=== PATIENT | female | born 2000 | race Caucasian/White ===

== ENCOUNTER 2023-03-23 20:56 | Observation (INO) ==
[2023-03-23] MEDS ORDERED: SODIUM CHLORIDE 0.9% 1000ML 1,000 ML IV SCH (21:30)
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
[2023-03-23 22:18] LABS: Albumin Level 2.9 gm/dl (3.4-5.0); BUN Creatinine Ratio 13.4 (10-20); Bilirubin,Total 10.3 mg/dl (0.2-1.0); Calcium 8.1 mg/dl (8.6-10.3); Creatinine Clr Calc Pharmacy 121.8 ml/min; Est GFR (African American) 118.6 ml/min; Est GFR (Non-African American) 102.3 ml/min; Magnesium 1.9 mg/dl (1.7-2.4); Potassium 3.6 mmol/L (3.5-5.1); Total Protein 6.6 gm/dl (6.0-8.3); Troponin I High Sensitivity 19.3 pg/ml (0-14)
[2023-03-23 22:22] LABS: INR 1.3 (0.9-1.1); Partial Thromboplastin Ratio 1.3; Partial Thromboplastin Time 35.3 Seconds (21.0-31.0)
[2023-03-23 22:29] LABS: Acetaminophen < 3 ug/ml (10-30); Salicylate < 3.0 mg/dl (3.0-30)
[2023-03-23] MEDS ORDERED: OPTIRAY 320 100ml IV ONE (22:45)
[2023-03-23 22:47] LABS: Appearance Urine Cloudy (Clear); Bacteria Urine Automated Negative (Negative); Bilirubin Urine 3+ (Negative); Blood Urine Negative (Negative); Color Urine Dark Yellow; Epithelial Cell Urine Auto >30 /lpf (0-5); Glucose Urine UA Negative (Negative); Ketones Urine Trace (Negative); Leukocyte Esterase Urine 1+ (Negative); Nitrite Urine Positive (Negative); Protein Urine 1+ (Negative); Specific Gravity Urine 1.017 (1.000-1.030); Urobilinogen Urine Negative (Negative)
[2023-03-23 22:48] LABS: Influenza A virus by PCR Negative (Neg); Influenza B virus by PCR Negative (Neg); RSV by PCR Negative (Neg); SARS CoV2 RNA(COVID-19) Ceph NEGATIVE (Negative)
[2023-03-23 22:57] LABS: RBC Urine Automated 0-4 /hpf (0-4)
[2023-03-23 22:59] LABS: Hematocrit (blood only) 29.2 % (37.0-47.0); Hemoglobin 10.2 g/dl (12.0-16.0); Mean Corpuscular Hemoglobin 30.2 pg (25.0-34.0); Mean Corpuscular Hgb Conc 34.9 g/dL (32.0-36.0); Mean Corpuscular Volume 86.4 fL (80.0-100.0); Mean Platelet Volume 12.3 fL (9.4-12.4); Platelet Count 82 K/uL (130-400); RDW Coefficient of Variation 14.6 % (11.5-14.5); RDW Standard Deviation 46.5 fL (36.4-46.3); Red Blood Count 3.38 M/uL (4.20-5.40); White Blood Count 4.24 K/ul (4.8-10.8)
[2023-03-23 23:00] LABS: Basophils # (auto) 0.02 K/uL (0-0.2); Basophils % (auto) 0.5 %; Immature Granulocytes # (auto) 0.17 K/uL (0.01-0.20); Lymphocytes # (auto) 2.06 K/uL (1.2-3.4); Lymphocytes % (auto) 48.6 %; Monocytes # (auto) 0.32 K/uL (0.11-0.59); Monocytes % (auto) 7.5 %; Neutrophils # (auto) 1.67 K/uL (1.40-6.50); Neutrophils % (auto) 39.4 %; Platelet Estimate Decreased (Normal)
[2023-03-23 23:07] LABS: Amphetamines+Metham, Urine Neg (Neg); Barbiturates, Urine Neg (Neg); Benzodiazepine, Urine Neg (Neg); Cocaine, Urine Neg (Neg); MDMA (Ecstacy), Urine Neg (Neg); Methadone, Urine Neg (Neg); Opiate, Urine Neg (Neg); Phencyclidine, Urine Neg (Neg)
--- NOTE | 2023-03-23 23:09 | CT Scan Report ---
Exam(s): CT ABDOMEN + PELVIS With Contrast IV Amt: 92ml EXAM: CT Abdomen and Pelvis With Intravenous Contrast CLINICAL HISTORY: Reason for exam: pain, jaundice. TECHNIQUE: Axial computed tomography images of the abdomen and pelvis with intravenous contrast. CTDI is 26.49 mGy and DLP is 1432.58 mGy-cm. Automated exposure control was utilized for the study. A dose lowering technique was utilized adhering to the principles of ALARA. CONTRAST: Patient received 92ml of IV contrast COMPARISON: No relevant prior studies available. FINDINGS: Lung bases: Unremarkable. No mass. No consolidation. ABDOMEN: Liver: Unremarkable. No CT evidence of hepatic cirrhosis. Gallbladder and bile ducts: Contracted gallbladder. No calcified stones. No ductal dilation. Pancreas: Unremarkable. No mass. No ductal dilation. Spleen: Splenomegaly measuring up to 16.5 cm. Adrenals: Unremarkable. No mass. Kidneys and ureters: Unremarkable. No solid mass. No hydronephrosis. Stomach and bowel: Unremarkable. No acute diverticulitis. No small bowel obstruction. No free air. PELVIS: Appendix: No findings to suggest acute appendicitis. Bladder: Unremarkable. No mass. Reproductive: Unremarkable as visualized. ABDOMEN and PELVIS: Intraperitoneal space: See above. Bones/joints: No acute fracture. No dislocation. Soft tissues: Unremarkable. Vasculature: Unremarkable. No abdominal aortic aneurysm. Lymph nodes: Unremarkable. No enlarged lymph nodes. IMPRESSION: 1. No acute diverticulitis. No small bowel obstruction. No free air. 2. No CT evidence of hepatic cirrhosis. 3. Splenomegaly measuring up to 16.5 cm. Electronically signed by: Austin Jenkins MD 03/23/23 23:08 PM
[2023-03-23] MEDS ORDERED: PIPERACILLIN/TAZOBACTAM 4.5 GM/120 ML BAG IV ONE (23:16)
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
[2023-03-24] MEDS ORDERED: DOXYCYCLINE HYCLATE 100 MG in DEXTROSE 5% 100 ML IV STA (00:55)
[2023-03-24 01:10] LABS: Monotest Positive (Negative); Pregnancy Test, Serum Negative (Negative)
[2023-03-24] MEDS ORDERED: ONDANSETRON 4 MG OD TAB PO PRN (01:39)
[2023-03-24] MEDS ORDERED: IBUPROFEN 600 MG TAB PO PRN (01:39)
[2023-03-24 01:45] LABS: Sodium 123 mmol/L (136-145)
[2023-03-24 01:54] LABS: Lyme Ab IgG w/WB Rflx Negative (Negative)
[2023-03-24 01:55] LABS: Lyme Ab IgM w/WB Rflx Negative (Negative)
[2023-03-24] MEDS: ACETAMINOPHEN 325 MG TAB PO PRN ×3 (01:55→16:20)
[2023-03-24 01:57] LABS: C Reactive Protein 5.99 mg/dl (0-0.5); Creatine Kinase 121 U/L (26-192); Iron 78 mcg/dl (35-150); Troponin I High Sensitivity 20.4 pg/ml (0-14); Unsaturated Iron Binding Cap 179 mcg/dl (155-355)
[2023-03-24 02:09] LABS: Total Iron Binding Cap Calc 257 mcg/dl (250-450)
[2023-03-24 02:10] LABS: Transferrin (FE) Percent Satur 30 % (15-50)
[2023-03-24 02:29] LABS: Ferritin > 7500.0 ng/ml (8-388)
[2023-03-24 02:59] LABS: HDL Cholesterol < 3 mg/dl; Triglycerides 471 mg/dl (0-150)
[2023-03-24] MEDS: SODIUM CHLORIDE 0.9% 1000ML 1,000 ML IV SCH ×2 (03:09→10:39)
[2023-03-24] MEDS: PIPERACILLIN/TAZOBACTAM 4.5 GM in DEXTROSE 5% 100 ML IV SCH ×2 (05:17→13:43)
--- NOTE | 2023-03-24 05:21 | Billing Data ---
Date of Service March 24, 2023 Coding Level of Care Code 33499 INT INP/OBS CARE
--- NOTE | 2023-03-24 05:57 | Consultation ---
Date of Consultation March 24, 2023 Assessment & Plan (1) Mononucleosis: Patient does have a Monospot that is positive but gives a somewhat atypical history of this being her third episode of mononucleosis. She does not have a tender cervical adenopathy nor at least by machine differential lymphocytosis/monocytosis that I would expect with that diagnosis. Certainly have to be concerned about HLH given the constellation of acute liver enzyme changes, pancytopenia, elevated ferritin. Would be concerned that we also need to consider a spectrum of hematologic conditions that are frankly beyond my specific expertise including unusual lymphoproliferative disorders or immune dysfunction disorders. Concern is that both diagnostically and therapeutically our local capabilities may not be best suited to her optimal evaluation and treatment. Her body habitus would make image guided bone marrow aspiration biopsy a preferable approach and unfortunately our IR provider is not available this week. We do have fantastic pathology resources here but specifically processing and evaluating for some of the unusual spectrum disorders this might represent would probably have to be submitted to a reference lab with some delay in turnaround especially given the timing on the cusp of the weekend. I would be particularly concerned that if this is an evolving HLH we may not have the physician expertise to best manage the prescription of etoposide which is a critical component of HLH treatment and yet can be challenging to administer in the face of hepatic dysfunction. I think she will be far better served to seek transfer to a quaternary institution that has the experience and capabilities specifically at the interventional radiology, hematology/oncology, hepatology, infectious disease, and sophisticated pathology processing levels that would assure thorough and expeditious diagnosis and experienced management of indicated treatment. Timing could be critical. Hopefully would be able to transfer sometime within the next hours and with that hopefully it might be prudent to simply continue with supportive management for now. If it looks like there is going to be a delay of more than 4-8 hours, however, we may need to discuss whether the initiation of steroids in the interim would be worthwhile though doing so could compromise the ultimate capability to make a good diagnosis if there is an early response (2) Pancytopenia: Not immediately threatening at the current levels but certainly could become so. Await peripheral smear review to see if there are pathological forms to suggest a lymphoproliferative disorder. As above, diagnostic marrow could be critical but lacking IR capability and given the delays in turnaround that might be imposed by weekend submission and the need to use reference labs are concerning limits to our ability to appropriately make a diagnosis here I will submit B12 and folic acid levels and would suggest that empiric folic acid could be useful what ever her underlying diagnosis Plan As above, she will best be tgreated in a sophisticated quaternary center setting that incorporates focused hematology personnel with more particular experience in the spectrum of diseases in the differential both with regards to diagnosis but also with regards to potential treatment. A focused hepatology team, onsite infectious disease, and onsite capability for maximum bone marrow acquisition and processing will also be pivotal. If there is absolutely no capability for immediate transfer, may need to discuss whether initiation of steroids can modulate her condition while we await that History of Present Illness Reason for Consultation: Febrile illness with cytopenias, elevated liver enzymes and appropriate concern over possible HLH Attending Physician: Radha Koo MD History of Present Illness Please see more complete admission history and physical for details. In general previously healthy 22-year-old female though she states that this is the "third time" that she has had mononucleosis. She does say that ironically she does not feel quite as ill with this episode that she has with previous. She otherwise has no significant personal history of major medical disorder and does not give a description of an unusual pattern of infections. Neither is there an apparent family history of any unusual blood disorders. She has had a low-grade illness for 2 weeks and have been prescribed Bactrim earlier this week for possible UTI. She presents now with more significant fever and prostration and markedly elevated liver enzymes along with anemia and thrombocytopenia. She has just graduated from college with a degree in criminal justice. She gives no history of any unusual exposures other than the Bactrim Allergies Allergy/AdvReac Type Severity Reaction Status Date / Time No Known Allergies Allergy Unverified 03/23/23 21:51 Home Medications Medication Instructions Recorded Confirmed Type etonogestrel 0.12 mg-ethinyl 1 vag ring vaginal UD 11/18/21 03/23/23 History estradiol 0.015 mg/24 hr vaginal ring (Sid) cyclobenzaprine 5 mg tablet 5 mg PO Q8 PRN Muscle Spasm 03/23/23 03/23/23 History Patient History Social History Smoking Status: Never smoker Tobacco Type: E-cigarettes / Vaping Second Hand Exposure: Yes (Parents smoke); Do You Dip or Chew Tobacco: No; Hx Alcohol Use: No Hx Substance Use: No Preferred Language: Canadian Communication Ability: Effective 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 Beliefs That Will Affect Care: None Current Living Situation: Parent Current Living Situation Comment: With parents Other Information That Helps Us Care for You: No Feels Safe at Home: Yes Assistive Devices: None Physical Exam Physical Exam: Patient is alert and appropriate and does not seem to be immediately severely "toxic" Tmax overnight was 39.1, she is saturating well with pulse ox of 94% on room air, mildly tachycardic but with stable blood pressure at this time She does not have dramatic or severely tender cervical adenopathy nor obviously pathologic adenopathy in the superficial or axillary regions Lungs currently seem clear and she is not tachypneic or in respiratory distress Cardiac rhythm is tachycardic but regular and without obvious murmurs or rubs Her abdomen shows tenderness but not acute rigidity or guarding. There is tenderness and fullness left upper quadrant but given the establishment of megaly I did not palpate too deeply. Neurologically she seems completely intact cognitive status without any focal neurological change Results & Data Vital Signs (Past 12 Hours) Vital Signs Temp Pulse Pulse Resp BP BP BP 03/24/23 01:37 112 H 03/24/23 03:13 37.8 C H 03/24/23 01:33 39.1 C H 94 H 20 128/81 03/24/23 01:00 102 H 24 146/81 H 03/24/23 00:30 103 H 25 H 160/92 H 03/24/23 00:04 100 H 25 H 03/24/23 00:04 126/61 03/24/23 00:00 107 H 17 03/23/23 23:52 128/62 03/23/23 23:52 104 H 29 H 03/23/23 23:31 104 H 14 03/23/23 21:24 132/68 03/23/23 23:00 99 H 23 03/23/23 22:52 102 H 17 113/73 03/23/23 22:30 93 H 22 03/23/23 22:20 104 H 25 H 03/23/23 22:00 109 H 15 03/23/23 21:30 106 H 18 03/23/23 21:26 103 H 03/23/23 21:26 104 H 21 03/23/23 21:00 37.4 C 118 H 19 132/78 Pulse Ox O2 Del Method 03/24/23 01:37 03/24/23 03:13 03/24/23 01:33 94 Room Air 03/24/23 01:00 94 03/24/23 00:30 92 03/24/23 00:04 94 03/24/23 00:04 03/24/23 00:00 90 03/23/23 23:52 03/23/23 23:52 90 03/23/23 23:31 03/23/23 21:24 03/23/23 23:00 93 03/23/23 22:52 93 03/23/23 22:30 03/23/23 22:20 97 03/23/23 22:00 97 03/23/23 21:30 94 03/23/23 21:26 03/23/23 21:26 94 03/23/23 21:00 97 Room Air Laboratory Results Laboratory Results - last 24 hr 03/23/23 03/23/23 03/23/23 21:19 21:19 21:19 WBC 4.24 L RBC 3.38 L Hgb 10.2 L Hct 29.2 L MCV 86.4 MCH 30.2 MCHC 34.9 RDW Std Deviation 46.5 H RDW Coeff of Sami 14.6 H Plt Count 82 L MPV 12.3 Immature Gran % (Auto) 4.0 Neut % (Auto) 39.4 Lymph % (Auto) 48.6 Gates % (Auto) 7.5 Eos % (Auto) 0.0 Baso % (Auto) 0.5 Neut # (Auto) 1.67 Lymph # (Auto) 2.06 Gates # (Auto) 0.32 Eos # (Auto) 0.00 Baso # (Auto) 0.02 Immature Gran # (Auto) 0.17 Platelet Estimate Decreased L Peripher Smr Path Cons Cancelled PT 14.0 H INR 1.3 H APTT 35.3 H PTT Ratio 1.3 Fibrinogen Sodium 121 L Potassium 3.6 Chloride 90 L Carbon Dioxide 23 Anion Gap 8 BUN 11 Creatinine 0.82 Est Cr Clr Drug Dosing 121.8 Est GFR ( Amer) 118.6 Est GFR (Non-Af Amer) 102.3 BUN/Creatinine Ratio 13.4 Glucose 85 Osmolality Lactate Calcium 8.1 L Magnesium 1.9 Iron TIBC Unsaturated IBC Transferrin % Sat Ferritin Total Bilirubin 10.3 H Direct Bilirubin 6.0 H AST 525 H ALT 267 H Alkaline Phosphatase 525 H Lactate Dehydrogenase Total Creatine Kinase Troponin I High Sens 19.3 H C-Reactive Protein Total Protein 6.6 Albumin 2.9 L Globulin Albumin/Globulin Ratio Triglycerides Cholesterol LDL Cholesterol, Calc VLDL Cholesterol, Calc HDL Cholesterol Cholesterol/HDL Ratio Lipase 37 Procalcitonin TSH HCG, Qual Urine Color Urine Appearance Urine pH Ur Specific [place] Urine Protein Urine Glucose (UA) Urine Ketones Urine Blood Urine Nitrite Urine Bilirubin Urine Urobilinogen Ur Leukocyte Esterase Urine WBC (Auto) Urine RBC (Auto) U Hyaline Cast (Auto) U Epithel Cells (Auto) Urine Bacteria (Auto) Urine Yeast Urine Osmolality Ur Random Sodium Salicylates Urine Opiates Screen Ur Methadone, Qual Acetaminophen Urine Barbiturates Ur Phencyclidine (PCP) U Amphetamin/Meth Scrn MDMA (Ecstasy) Screen U Benzodiazepines Scrn Ur Cocaine Metabolite U Marijuana (THC) Screen U Marijuana THC Carboxy Drug Screen Comment Ethyl Alcohol mg/dL MIRNA Screen RPR T.pallidum Ab (FTA-ABS) Anaplasma Smear Cancelled Babesia Smear Cancelled Babesia microti DNA PCR Lyme Disease IgG Ab Lyme Disease IgM Ab SARS-CoV-2 (PCR) EBV Capsid Ag IgG Ab EBV Capsid Ag IgM Ab EBV EA Restrict+Diffuse EBV Nuclear Antigen Ab EBV Antibody Interp Hepatitis A IgM Ab Hep Bs Antigen Hep Bs Ag Confirmation Hep B Core IgM Ab Hepatitis C Ab (EIA) Monoscreen Influenza Type A (PCR) Influenza Type B (PCR) RSV (RT-PCR) Blood Type Antibody Screen 03/23/23 03/23/23 03/23/23 21:19 21:19 21:19 WBC RBC Hgb Hct MCV MCH MCHC RDW Std Deviation RDW Coeff of Sami Plt Count MPV Immature Gran % (Auto) Neut % (Auto) Lymph % (Auto) Gates % (Auto) Eos % (Auto) Baso % (Auto) Neut # (Auto) Lymph # (Auto) Gates # (Auto) Eos # (Auto) Baso # (Auto) Immature Gran # (Auto) Platelet Estimate Peripher Smr Path Cons PT INR APTT PTT Ratio Fibrinogen Sodium Potassium Chloride Carbon Dioxide Anion Gap BUN Creatinine Est Cr Clr Drug Dosing Est GFR ( Amer) Est GFR (Non-Af Amer) BUN/Creatinine Ratio Glucose Osmolality Lactate Calcium Magnesium Iron TIBC Unsaturated IBC Transferrin % Sat Ferritin Total Bilirubin Direct Bilirubin AST ALT Alkaline Phosphatase Lactate Dehydrogenase Total Creatine Kinase Troponin I High Sens C-Reactive Protein Total Protein Albumin Globulin Albumin/Globulin Ratio Triglycerides Cholesterol LDL Cholesterol, Calc VLDL Cholesterol, Calc HDL Cholesterol Cholesterol/HDL Ratio Lipase Procalcitonin 1.72 H TSH HCG, Qual Urine Color Urine Appearance Urine pH Ur Specific [place] Urine Protein Urine Glucose (UA) Urine Ketones Urine Blood Urine Nitrite Urine Bilirubin Urine Urobilinogen Ur Leukocyte Esterase Urine WBC (Auto) Urine RBC (Auto) U Hyaline Cast (Auto) U Epithel Cells (Auto) Urine Bacteria (Auto) Urine Yeast Urine Osmolality Ur Random Sodium Salicylates < 3.0 L Urine Opiates Screen Ur Methadone, Qual Acetaminophen < 3 L Urine Barbiturates Ur Phencyclidine (PCP) U Amphetamin/Meth Scrn MDMA (Ecstasy) Screen U Benzodiazepines Scrn Ur Cocaine Metabolite U Marijuana (THC) Screen U Marijuana THC Carboxy Drug Screen Comment Ethyl Alcohol mg/dL MIRNA Screen RPR T.pallidum Ab (FTA-ABS) Anaplasma Smear Babesia Smear Babesia microti DNA PCR Lyme Disease IgG Ab Lyme Disease IgM Ab SARS-CoV-2 (PCR) EBV Capsid Ag IgG Ab EBV Capsid Ag IgM Ab EBV EA Restrict+Diffuse EBV Nuclear Antigen Ab EBV Antibody Interp Hepatitis A IgM Ab Pending Hep Bs Antigen Pending Hep Bs Ag Confirmation Pending Hep B Core IgM Ab Pending Hepatitis C Ab (EIA) Pending Monoscreen Influenza Type A (PCR) Influenza Type B (PCR) RSV (RT-PCR) Blood Type Antibody Screen 03/23/23 03/23/23 03/23/23 21:43 22:22 22:22 WBC RBC Hgb Hct MCV MCH MCHC RDW Std Deviation RDW Coeff of Sami Plt Count MPV Immature Gran % (Auto) Neut % (Auto) Lymph % (Auto) Gates % (Auto) Eos % (Auto) Baso % (Auto) Neut # (Auto) Lymph # (Auto) Gates # (Auto) Eos # (Auto) Baso # (Auto) Immature Gran # (Auto) Platelet Estimate Peripher Smr Path Cons PT INR APTT PTT Ratio Fibrinogen Sodium Potassium Chloride Carbon Dioxide Anion Gap BUN Creatinine Est Cr Clr Drug Dosing Est GFR ( Amer) Est GFR (Non-Af Amer) BUN/Creatinine Ratio Glucose Osmolality Lactate Calcium Magnesium Iron TIBC Unsaturated IBC Transferrin % Sat Ferritin Total Bilirubin Direct Bilirubin AST ALT Alkaline Phosphatase Lactate Dehydrogenase Total Creatine Kinase Troponin I High Sens C-Reactive Protein Total Protein Albumin Globulin Albumin/Globulin Ratio Triglycerides Cholesterol LDL Cholesterol, Calc VLDL Cholesterol, Calc HDL Cholesterol Cholesterol/HDL Ratio Lipase Procalcitonin TSH HCG, Qual Urine Color Dark Yellow Urine Appearance Cloudy A Urine pH 6.0 Ur Specific [place] 1.017 Urine Protein 1+ H Urine Glucose (UA) Negative Urine Ketones Trace H Urine Blood Negative Urine Nitrite Positive A Urine Bilirubin 3+ H Urine Urobilinogen Negative Ur Leukocyte Esterase 1+ H Urine WBC (Auto) 1-5 Urine RBC (Auto) 0-4 U Hyaline Cast (Auto) 1-5 U Epithel Cells (Auto) >30 H Urine Bacteria (Auto) Negative Urine Yeast Not Reportable Urine Osmolality Ur Random Sodium Salicylates Urine Opiates Screen Neg Ur Methadone, Qual Neg Acetaminophen Urine Barbiturates Neg Ur Phencyclidine (PCP) Neg U Amphetamin/Meth Scrn Neg MDMA (Ecstasy) Screen Neg U Benzodiazepines Scrn Neg Ur Cocaine Metabolite Neg U Marijuana (THC) Screen Pos H U Marijuana THC Carboxy Drug Screen Comment Ethyl Alcohol mg/dL MIRNA Screen RPR T.pallidum Ab (FTA-ABS) Anaplasma Smear Babesia Smear Babesia microti DNA PCR Lyme Disease IgG Ab Lyme Disease IgM Ab SARS-CoV-2 (PCR) NEGATIVE EBV Capsid Ag IgG Ab EBV Capsid Ag IgM Ab EBV EA Restrict+Diffuse EBV Nuclear Antigen Ab EBV Antibody Interp Hepatitis A IgM Ab Hep Bs Antigen Hep Bs Ag Confirmation Hep B Core IgM Ab Hepatitis C Ab (EIA) Monoscreen Influenza Type A (PCR) Negative Influenza Type B (PCR) Negative RSV (RT-PCR) Negative Blood Type Antibody Screen 03/23/23 03/23/23 03/23/23 22:22 22:22 22:23 WBC RBC Hgb Hct MCV MCH MCHC RDW Std Deviation RDW Coeff of Sami Plt Count MPV Immature Gran % (Auto) Neut % (Auto) Lymph % (Auto) Gates % (Auto) Eos % (Auto) Baso % (Auto) Neut # (Auto) Lymph # (Auto) Gates # (Auto) Eos # (Auto) Baso # (Auto) Immature Gran # (Auto) Platelet Estimate Peripher Smr Path Cons PT INR APTT PTT Ratio Fibrinogen Sodium Potassium Chloride Carbon Dioxide Anion Gap BUN Creatinine Est Cr Clr Drug Dosing Est GFR ( Amer) Est GFR (Non-Af Amer) BUN/Creatinine Ratio Glucose Osmolality Lactate Calcium Magnesium Iron TIBC Unsaturated IBC Transferrin % Sat Ferritin Total Bilirubin Direct Bilirubin AST ALT Alkaline Phosphatase Lactate Dehydrogenase Total Creatine Kinase Troponin I High Sens C-Reactive Protein Total Protein Albumin Globulin Albumin/Globulin Ratio Triglycerides Cholesterol LDL Cholesterol, Calc VLDL Cholesterol, Calc HDL Cholesterol Cholesterol/HDL Ratio Lipase Procalcitonin TSH HCG, Qual Negative Urine Color Urine Appearance Urine pH Ur Specific [place] Urine Protein Urine Glucose (UA) Urine Ketones Urine Blood Urine Nitrite Urine Bilirubin Urine Urobilinogen Ur Leukocyte Esterase Urine WBC (Auto) Urine RBC (Auto) U Hyaline Cast (Auto) U Epithel Cells (Auto) Urine Bacteria (Auto) Urine Yeast Urine Osmolality Ur Random Sodium < 10 Salicylates Urine Opiates Screen Ur Methadone, Qual Acetaminophen Urine Barbiturates Ur Phencyclidine (PCP) U Amphetamin/Meth Scrn MDMA (Ecstasy) Screen U Benzodiazepines Scrn Ur Cocaine Metabolite U Marijuana (THC) Screen U Marijuana THC Carboxy Pending Drug Screen Comment Pending Ethyl Alcohol mg/dL MIRNA Screen RPR T.pallidum Ab (FTA-ABS) Anaplasma Smear Babesia Smear Babesia microti DNA PCR Lyme Disease IgG Ab Negative Lyme Disease IgM Ab Negative SARS-CoV-2 (PCR) EBV Capsid Ag IgG Ab EBV Capsid Ag IgM Ab EBV EA Restrict+Diffuse EBV Nuclear Antigen Ab EBV Antibody Interp Hepatitis A IgM Ab Hep Bs Antigen Hep Bs Ag Confirmation Hep B Core IgM Ab Hepatitis C Ab (EIA) Monoscreen Positive A Influenza Type A (PCR) Influenza Type B (PCR) RSV (RT-PCR) Blood Type Antibody Screen 03/23/23 03/23/23 03/23/23 22:31 22:31 22:31 WBC RBC Hgb Hct MCV MCH MCHC RDW Std Deviation RDW Coeff of Sami Plt Count MPV Immature Gran % (Auto) Neut % (Auto) Lymph % (Auto) Gates % (Auto) Eos % (Auto) Baso % (Auto) Neut # (Auto) Lymph # (Auto) Gates # (Auto) Eos # (Auto) Baso # (Auto) Immature Gran # (Auto) Platelet Estimate Peripher Smr Path Cons PT INR APTT PTT Ratio Fibrinogen Sodium Potassium Chloride Carbon Dioxide Anion Gap BUN Creatinine Est Cr Clr Drug Dosing Est GFR ( Amer) Est GFR (Non-Af Amer) BUN/Creatinine Ratio Glucose Osmolality Lactate 1.8 Calcium Magnesium Iron TIBC Unsaturated IBC Transferrin % Sat Ferritin Total Bilirubin Direct Bilirubin AST ALT Alkaline Phosphatase Lactate Dehydrogenase Total Creatine Kinase Troponin I High Sens C-Reactive Protein Total Protein Albumin Globulin Albumin/Globulin Ratio Triglycerides Cholesterol LDL Cholesterol, Calc VLDL Cholesterol, Calc HDL Cholesterol Cholesterol/HDL Ratio Lipase Procalcitonin TSH HCG, Qual Urine Color Urine Appearance Urine pH Ur Specific [place] Urine Protein Urine Glucose (UA) Urine Ketones Urine Blood Urine Nitrite Urine Bilirubin Urine Urobilinogen Ur Leukocyte Esterase Urine WBC (Auto) Urine RBC (Auto) U Hyaline Cast (Auto) U Epithel Cells (Auto) Urine Bacteria (Auto) Urine Yeast Urine Osmolality Ur Random Sodium Salicylates Urine Opiates Screen Ur Methadone, Qual Acetaminophen Urine Barbiturates Ur Phencyclidine (PCP) U Amphetamin/Meth Scrn MDMA (Ecstasy) Screen U Benzodiazepines Scrn Ur Cocaine Metabolite U Marijuana (THC) Screen U Marijuana THC Carboxy Drug Screen Comment Ethyl Alcohol mg/dL < 10.0 MIRNA Screen RPR T.pallidum Ab (FTA-ABS) Anaplasma Smear Babesia Smear Babesia microti DNA PCR Lyme Disease IgG Ab Lyme Disease IgM Ab SARS-CoV-2 (PCR) EBV Capsid Ag IgG Ab EBV Capsid Ag IgM Ab EBV EA Restrict+Diffuse EBV Nuclear Antigen Ab EBV Antibody Interp Hepatitis A IgM Ab Hep Bs Antigen Hep Bs Ag Confirmation Hep B Core IgM Ab Hepatitis C Ab (EIA) Monoscreen Influenza Type A (PCR) Influenza Type B (PCR) RSV (RT-PCR) Blood Type O Negative Antibody Screen NEGATIVE 03/23/23 03/23/23 03/23/23 22:31 22:33 22:33 WBC RBC Hgb Hct MCV MCH MCHC RDW Std Deviation RDW Coeff of Sami Plt Count MPV Immature Gran % (Auto) Neut % (Auto) Lymph % (Auto) Gates % (Auto) Eos % (Auto) Baso % (Auto) Neut # (Auto) Lymph # (Auto) Gates # (Auto) Eos # (Auto) Baso # (Auto) Immature Gran # (Auto) Platelet Estimate Peripher Smr Path Cons PT INR APTT PTT Ratio Fibrinogen Sodium Potassium Chloride Carbon Dioxide Anion Gap BUN Creatinine Est Cr Clr Drug Dosing Est GFR ( Amer) Est GFR (Non-Af Amer) BUN/Creatinine Ratio Glucose Osmolality 259 L Lactate Calcium Magnesium Iron 78 TIBC 257 Unsaturated IBC 179 Transferrin % Sat 30 Ferritin > 7500.0 H Total Bilirubin Direct Bilirubin AST ALT Alkaline Phosphatase Lactate Dehydrogenase Total Creatine Kinase 121 Troponin I High Sens 20.4 H C-Reactive Protein 5.99 H Total Protein Albumin Globulin Albumin/Globulin Ratio Triglycerides Cholesterol LDL Cholesterol, Calc VLDL Cholesterol, Calc HDL Cholesterol Cholesterol/HDL Ratio Lipase Procalcitonin TSH 1.172 HCG, Qual Urine Color Urine Appearance Urine pH Ur Specific [place] Urine Protein Urine Glucose (UA) Urine Ketones Urine Blood Urine Nitrite Urine Bilirubin Urine Urobilinogen Ur Leukocyte Esterase Urine WBC (Auto) Urine RBC (Auto) U Hyaline Cast (Auto) U Epithel Cells (Auto) Urine Bacteria (Auto) Urine Yeast Urine Osmolality Ur Random Sodium Salicylates Urine Opiates Screen Ur Methadone, Qual Acetaminophen Urine Barbiturates Ur Phencyclidine (PCP) U Amphetamin/Meth Scrn MDMA (Ecstasy) Screen U Benzodiazepines Scrn Ur Cocaine Metabolite U Marijuana (THC) Screen U Marijuana THC Carboxy Drug Screen Comment Ethyl Alcohol mg/dL MIRNA Screen RPR T.pallidum Ab (FTA-ABS) Anaplasma Smear Babesia Smear Babesia microti DNA PCR Lyme Disease IgG Ab Lyme Disease IgM Ab SARS-CoV-2 (PCR) EBV Capsid Ag IgG Ab EBV Capsid Ag IgM Ab EBV EA Restrict+Diffuse EBV Nuclear Antigen Ab EBV Antibody Interp Hepatitis A IgM Ab Hep Bs Antigen Hep Bs Ag Confirmation Hep B Core IgM Ab Hepatitis C Ab (EIA) Monoscreen Influenza Type A (PCR) Influenza Type B (PCR) RSV (RT-PCR) Blood Type Antibody Screen 03/23/23 03/24/23 03/24/23 Unknown 01:15 01:15 WBC RBC Hgb Hct MCV MCH MCHC RDW Std Deviation RDW Coeff of Sami Plt Count MPV Immature Gran % (Auto) Neut % (Auto) Lymph % (Auto) Gates % (Auto) Eos % (Auto) Baso % (Auto) Neut # (Auto) Lymph # (Auto) [place] # (Auto) Eos # (Auto) Baso # (Auto) Immature Gran # (Auto) Platelet Estimate Peripher Smr Path Cons PT INR APTT PTT Ratio Fibrinogen Sodium Potassium Chloride Carbon Dioxide Anion Gap BUN Creatinine Est Cr Clr Drug Dosing Est GFR ( Amer) Est GFR (Non-Af Amer) BUN/Creatinine Ratio Glucose Osmolality Lactate Calcium Magnesium Iron TIBC Unsaturated IBC Transferrin % Sat Ferritin Total Bilirubin Direct Bilirubin AST ALT Alkaline Phosphatase Lactate Dehydrogenase Total Creatine Kinase Troponin I High Sens C-Reactive Protein Total Protein Albumin Globulin Albumin/Globulin Ratio Triglycerides Cholesterol LDL Cholesterol, Calc VLDL Cholesterol, Calc HDL Cholesterol Cholesterol/HDL Ratio Lipase Procalcitonin TSH HCG, Qual Urine Color Urine Appearance Urine pH Ur Specific [place] Urine Protein Urine Glucose (UA) Urine Ketones Urine Blood Urine Nitrite Urine Bilirubin Urine Urobilinogen Ur Leukocyte Esterase Urine WBC (Auto) Urine RBC (Auto) U Hyaline Cast (Auto) U Epithel Cells (Auto) Urine Bacteria (Auto) Urine Yeast Urine Osmolality 434 L Ur Random Sodium Salicylates Urine Opiates Screen Ur Methadone, Qual Acetaminophen Urine Barbiturates Ur Phencyclidine (PCP) U Amphetamin/Meth Scrn MDMA (Ecstasy) Screen U Benzodiazepines Scrn Ur Cocaine Metabolite U Marijuana (THC) Screen U Marijuana THC Carboxy Drug Screen Comment Ethyl Alcohol mg/dL MIRNA Screen Pending RPR T.pallidum Ab (FTA-ABS) Anaplasma Smear Babesia Smear Babesia microti DNA PCR Pending Lyme Disease IgG Ab Lyme Disease IgM Ab SARS-CoV-2 (PCR) EBV Capsid Ag IgG Ab Pending EBV Capsid Ag IgM Ab Pending EBV EA Restrict+Diffuse Pending EBV Nuclear Antigen Ab Pending EBV Antibody Interp Pending Hepatitis A IgM Ab Hep Bs Antigen Hep Bs Ag Confirmation Hep B Core IgM Ab Hepatitis C Ab (EIA) Monoscreen Influenza Type A (PCR) Influenza Type B (PCR) RSV (RT-PCR) Blood Type Antibody Screen 03/24/23 03/24/23 03/24/23 01:15 01:15 05:27 WBC RBC Hgb Hct MCV MCH MCHC RDW Std Deviation RDW Coeff of Sami Plt Count MPV Immature Gran % (Auto) Neut % (Auto) Lymph % (Auto) [place] % (Auto) Eos % (Auto) Baso % (Auto) Neut # (Auto) Lymph # (Auto) [place] # (Auto) Eos # (Auto) Baso # (Auto) Immature Gran # (Auto) Platelet Estimate Peripher Smr Path Cons Pending PT INR APTT PTT Ratio Fibrinogen Sodium 123 L Potassium Chloride Carbon Dioxide Anion Gap BUN Creatinine Est Cr Clr Drug Dosing Est GFR ( Amer) Est GFR (Non-Af Amer) BUN/Creatinine Ratio Glucose Osmolality Lactate Calcium Magnesium Iron TIBC Unsaturated IBC Transferrin % Sat Ferritin Total Bilirubin Direct Bilirubin AST ALT Alkaline Phosphatase Lactate Dehydrogenase Total Creatine Kinase Troponin I High Sens C-Reactive Protein Total Protein Albumin Globulin Albumin/Globulin Ratio Triglycerides 471 H Cholesterol TNP LDL Cholesterol, Calc TNP VLDL Cholesterol, Calc TNP HDL Cholesterol < 3 Cholesterol/HDL Ratio TNP Lipase Procalcitonin TSH HCG, Qual Urine Color Urine Appearance Urine pH Ur Specific [place] Urine Protein Urine Glucose (UA) Urine Ketones Urine Blood Urine Nitrite Urine Bilirubin Urine Urobilinogen Ur Leukocyte Esterase Urine WBC (Auto) Urine RBC (Auto) U Hyaline Cast (Auto) U Epithel Cells (Auto) Urine Bacteria (Auto) Urine Yeast Urine Osmolality Ur Random Sodium Salicylates Urine Opiates Screen Ur Methadone, Qual Acetaminophen Urine Barbiturates Ur Phencyclidine (PCP) U Amphetamin/Meth Scrn MDMA (Ecstasy) Screen U Benzodiazepines Scrn Ur Cocaine Metabolite U Marijuana (THC) Screen U Marijuana THC Carboxy Drug Screen Comment Ethyl Alcohol mg/dL MIRNA Screen RPR Pending T.pallidum Ab (FTA-ABS) Anaplasma Smear See Comment Babesia Smear See Comment Babesia microti DNA PCR Lyme Disease IgG Ab Lyme Disease IgM Ab SARS-CoV-2 (PCR) EBV Capsid Ag IgG Ab EBV Capsid Ag IgM Ab EBV EA Restrict+Diffuse EBV Nuclear Antigen Ab EBV Antibody Interp Hepatitis A IgM Ab Hep Bs Antigen Hep Bs Ag Confirmation Hep B Core IgM Ab Hepatitis C Ab (EIA) Monoscreen Influenza Type A (PCR) Influenza Type B (PCR) RSV (RT-PCR) Blood Type Antibody Screen 03/24/23 03/24/23 03/24/23 05:27 05:27 05:27 WBC Pending RBC Pending Hgb Pending Hct Pending MCV Pending MCH Pending MCHC Pending RDW Std Deviation RDW Coeff of Sami Plt Count Pending MPV Immature Gran % (Auto) Neut % (Auto) Lymph % (Auto) Gates % (Auto) Eos % (Auto) Baso % (Auto) Neut # (Auto) Lymph # (Auto) Gates # (Auto) Eos # (Auto) Baso # (Auto) Immature Gran # (Auto) Platelet Estimate Peripher Smr Path Cons PT Pending INR Pending APTT Pending PTT Ratio Pending Fibrinogen Sodium Potassium Chloride Carbon Dioxide Anion Gap BUN Creatinine Est Cr Clr Drug Dosing Est GFR ( Amer) Est GFR (Non-Af Amer) BUN/Creatinine Ratio Glucose Osmolality Lactate Calcium Magnesium Iron TIBC Unsaturated IBC Transferrin % Sat Ferritin Total Bilirubin Direct Bilirubin AST ALT Alkaline Phosphatase Lactate Dehydrogenase Total Creatine Kinase Troponin I High Sens C-Reactive Protein Total Protein Albumin Globulin Albumin/Globulin Ratio Triglycerides Cholesterol LDL Cholesterol, Calc VLDL Cholesterol, Calc HDL Cholesterol Cholesterol/HDL Ratio Lipase Procalcitonin TSH HCG, Qual Urine Color Urine Appearance Urine pH Ur Specific [place] Urine Protein Urine Glucose (UA) Urine Ketones Urine Blood Urine Nitrite Urine Bilirubin Urine Urobilinogen Ur Leukocyte Esterase Urine WBC (Auto) Urine RBC (Auto) U Hyaline Cast (Auto) U Epithel Cells (Auto) Urine Bacteria (Auto) Urine Yeast Urine Osmolality Ur Random Sodium Salicylates Urine Opiates Screen Ur Methadone, Qual Acetaminophen Urine Barbiturates Ur Phencyclidine (PCP) U Amphetamin/Meth Scrn MDMA (Ecstasy) Screen U Benzodiazepines Scrn Ur Cocaine Metabolite U Marijuana (THC) Screen U Marijuana THC Carboxy Drug Screen Comment Ethyl Alcohol mg/dL MIRNA Screen RPR T.pallidum Ab (FTA-ABS) Pending Anaplasma Smear Babesia Smear Babesia microti DNA PCR Lyme Disease IgG Ab Lyme Disease IgM Ab SARS-CoV-2 (PCR) EBV Capsid Ag IgG Ab EBV Capsid Ag IgM Ab EBV EA Restrict+Diffuse EBV Nuclear Antigen Ab EBV Antibody Interp Hepatitis A IgM Ab Hep Bs Antigen Hep Bs Ag Confirmation Hep B Core IgM Ab Hepatitis C Ab (EIA) Monoscreen Influenza Type A (PCR) Influenza Type B (PCR) RSV (RT-PCR) Blood Type Antibody Screen 03/24/23 03/24/23 03/24/23 05:27 05:27 05:27 WBC RBC Hgb Hct MCV MCH MCHC RDW Std Deviation RDW Coeff of Sami Plt Count MPV Immature Gran % (Auto) Neut % (Auto) Lymph % (Auto) Gates % (Auto) Eos % (Auto) Baso % (Auto) Neut # (Auto) Lymph # (Auto) Gates # (Auto) Eos # (Auto) Baso # (Auto) Immature Gran # (Auto) Platelet Estimate Peripher Smr Path Cons PT INR APTT PTT Ratio Fibrinogen Pending Sodium Pending Potassium Pending Chloride Pending Carbon Dioxide Pending Anion Gap Pending BUN Pending Creatinine Pending Est Cr Clr Drug Dosing Pending Est GFR ( Amer) Pending Est GFR (Non-Af Amer) Pending BUN/Creatinine Ratio Pending Glucose Pending Osmolality Lactate Calcium Pending Magnesium Pending Iron TIBC Unsaturated IBC Transferrin % Sat Ferritin Total Bilirubin Pending Direct Bilirubin AST Pending ALT Pending Alkaline Phosphatase Pending Lactate Dehydrogenase Pending Total Creatine Kinase Troponin I High Sens Pending C-Reactive Protein Pending Total Protein Pending Albumin Pending Globulin Pending Albumin/Globulin Ratio Pending Triglycerides Cholesterol LDL Cholesterol, Calc VLDL Cholesterol, Calc HDL Cholesterol Cholesterol/HDL Ratio Lipase Procalcitonin TSH HCG, Qual Urine Color Urine Appearance Urine pH Ur Specific [place] Urine Protein Urine Glucose (UA) Urine Ketones Urine Blood Urine Nitrite Urine Bilirubin Urine Urobilinogen Ur Leukocyte Esterase Urine WBC (Auto) Urine RBC (Auto) U Hyaline Cast (Auto) U Epithel Cells (Auto) Urine Bacteria (Auto) Urine Yeast Urine Osmolality Ur Random Sodium Salicylates Urine Opiates Screen Ur Methadone, Qual Acetaminophen Urine Barbiturates Ur Phencyclidine (PCP) U Amphetamin/Meth Scrn MDMA (Ecstasy) Screen U Benzodiazepines Scrn Ur Cocaine Metabolite U Marijuana (THC) Screen U Marijuana THC Carboxy Drug Screen Comment Ethyl Alcohol mg/dL MIRNA Screen RPR T.pallidum Ab (FTA-ABS) Anaplasma Smear Babesia Smear Babesia microti DNA PCR Lyme Disease IgG Ab Lyme Disease IgM Ab SARS-CoV-2 (PCR) EBV Capsid Ag IgG Ab EBV Capsid Ag IgM Ab EBV EA Restrict+Diffuse EBV Nuclear Antigen Ab EBV Antibody Interp Hepatitis A IgM Ab Hep Bs Antigen Hep Bs Ag Confirmation Hep B Core IgM Ab Hepatitis C Ab (EIA) Monoscreen Influenza Type A (PCR) Influenza Type B (PCR) RSV (RT-PCR) Blood Type Antibody Screen Diagnostic Findings Abdomen/Pelvis CT 03/23/23 21:28 Exam(s): CT ABDOMEN + PELVIS With Contrast IV Amt: 92ml EXAM: CT Abdomen and Pelvis With Intravenous Contrast CLINICAL HISTORY: Reason for exam: pain, jaundice. TECHNIQUE: Axial computed tomography images of the abdomen and pelvis with intravenous contrast. CTDI is 26.49 mGy and DLP is 1432.58 mGy-cm. Automated exposure control was utilized for the study. A dose lowering technique was utilized adhering to the principles of ALARA. CONTRAST: Patient received 92ml of IV contrast COMPARISON: No relevant prior studies available. FINDINGS: Lung bases: Unremarkable. No mass. No consolidation. ABDOMEN: Liver: Unremarkable. No CT evidence of hepatic cirrhosis. Gallbladder and bile ducts: Contracted gallbladder. No calcified stones. No ductal dilation. Pancreas: Unremarkable. No mass. No ductal dilation. Spleen: Splenomegaly measuring up to 16.5 cm. Adrenals: Unremarkable. No mass. Kidneys and ureters: Unremarkable. No solid mass. No hydronephrosis. Stomach and bowel: Unremarkable. No acute diverticulitis. No small bowel obstruction. No free air. PELVIS: Appendix: No findings to suggest acute appendicitis. Bladder: Unremarkable. No mass. Reproductive: Unremarkable as visualized. ABDOMEN and PELVIS: Intraperitoneal space: See above. Bones/joints: No acute fracture. No dislocation. Soft tissues: Unremarkable. Vasculature: Unremarkable. No abdominal aortic aneurysm. Lymph nodes: Unremarkable. No enlarged lymph nodes. IMPRESSION: 1. No acute diverticulitis. No small bowel obstruction. No free air. 2. No CT evidence of hepatic cirrhosis. 3. Splenomegaly measuring up to 16.5 cm. Electronically signed by: Austin Jenkins MD 03/23/23 23:08 PM PG Care Time/CCT Total # of Minutes Spent Total Time Spent with Patient: Total time spent is greater than 50% in coordination of care (as documented) at patient's floor/unit and/or counseling patient: Coding Level of Care Code 08305 IN/OBS CONSULT LVL 4,60M Diagnoses Mononucleosis B27.90 Pancytopenia D61.818
[2023-03-24 06:09] LABS: Albumin Globulin Ratio 0.7 (0.9-2); Albumin Level 2.5 gm/dl (3.4-5.0); BUN Creatinine Ratio 10.7 (10-20); Bilirubin,Total 9.4 mg/dl (0.2-1.0); C Reactive Protein 5.08 mg/dl (0-0.5); Calcium 7.7 mg/dl (8.6-10.3); Creatinine Clr Calc Pharmacy 133.3 ml/min; Est GFR (African American) 132.1 ml/min; Est GFR (Non-African American) 113.9 ml/min; Globulin 3.4 gm/dl (2.5-4.0); Potassium 3.5 mmol/L (3.5-5.1); Total Protein 5.9 gm/dl (6.0-8.3)
[2023-03-24 06:16] LABS: Troponin I High Sensitivity 18.6 pg/ml (0-14)
[2023-03-24 06:18] LABS: Fibrinogen 115 mg/dl (184-400)
[2023-03-24 06:22] LABS: INR 1.4 (0.9-1.1); Partial Thromboplastin Ratio 1.2; Prothrombin Time 14.6 Seconds (9.0-12.0)
[2023-03-24 06:51] LABS: Reticulocyte % 1.2 % (0.5-2.0); Reticulocytes # 0.04 10^6/uL (0.02-0.10)
[2023-03-24 07:11] LABS: Hematocrit (blood only) 26.1 % (37.0-47.0); Hemoglobin 9.3 g/dl (12.0-16.0); Mean Corpuscular Hemoglobin 31.2 pg (25.0-34.0); Mean Corpuscular Hgb Conc 35.6 g/dL (32.0-36.0); Mean Corpuscular Volume 87.6 fL (80.0-100.0); Mean Platelet Volume 12.7 fL (9.4-12.4); Platelet Count 78 K/uL (130-400); RDW Coefficient of Variation 14.6 % (11.5-14.5); RDW Standard Deviation 45.4 fL (36.4-46.3); Red Blood Count 2.98 M/uL (4.20-5.40)
[2023-03-24 07:50] LABS: ALC (manual) 1.39 K/uL (1.2-3.4); ANC (manual) 1.22 K/uL (1.4-6.5); Eosinophils # (manual) 0.03 K/uL (0-0.50); Eosinophils % (manual) 1 %; Lymphocytes # (manual) 0.55 K/uL (1.2-3.4); Lymphocytes % (manual) 19 %; Metamyelocytes # (manual) 0.09 K/uL (0-0); Metamyelocytes % (manual) 3 %; Monocytes # (manual) 0.17 K/uL (0.11-0.59); Monocytes % (manual) 6 %; Neutrophils # (manual) 1.22 K/uL (1.40-6.50); Neutrophils % (manual) 42 %; Polychromasia 1+; Reactive Lymphocytes # (manual) 0.84 K/uL; Reactive Lymphocytes % (manual) 29 %; Toxic Vacuolation 1+
--- NOTE | 2023-03-24 08:11 | XRay Report ---
XR chest 1V portable CLINICAL HISTORY: Sepsis. COMPARISON STUDY: Chest radiograph November 18, 2021. FINDINGS: Lung volumes are normal. Lungs are clear. There is no pneumothorax or pleural effusion. Car diac size is normal. Mediastinal contours are normal. There is no evidence for pulmonary edema. IMPRESSION: No acute cardiopulmonary findings. ACT 112: Negative or not required by law. Electronically signed by: Serafin Irvin M.D. 03/24/2023 8:10 AM
[2023-03-24] MEDS ORDERED: ENOXAPARIN INJ 40 MG/0.4 ML SYR SQ SCH (09:00)
[2023-03-24] MEDS ORDERED: DOXYCYCLINE HYCLATE 100 MG in DEXTROSE 5% 100 ML IV SCH ×2 (10:00→14:00)
[2023-03-24 10:29] LABS: BUN Creatinine Ratio 10.3 (10-20); Calcium 7.9 mg/dl (8.6-10.3); Creatinine Clr Calc Pharmacy 128.2 ml/min; Est GFR (Non-African American) 108.7 ml/min; Potassium 3.3 mmol/L (3.5-5.1)
--- NOTE | 2023-03-24 12:41 | Hospitalist Progress Note ---
Date of Service March 24, 2023 Assessment & Plan (1) Fever: Plan: 22 yo female with no significant PMHx presents with nonspecific symptoms. #Fever #Elevated LFTs #Elevated bilirubin #Pancytopenia #Mononucleosis -presented with 2 weeks of nonspecific symptoms including fever, malaise, abdominal pain. Met 1/4 SIRS upon arrival (tachycardia). Concerning labs with broad work up pending. Thus far with positive monospot, EBV panel pending. 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 Patient is pancytopenic, elevated LFTs/bilirubin, hypertriglyc eridemia, highly elevated ferritin, splenomegaly which all fit diagnostic criteria. LDH and fibrinogen pending. -CT A/P with splenomegaly -CXR unremarkable -Cannot exclude tick borne illness. Lyme, anaplasmosis/Babesia pending. Started on doxycycline. -hepatitis panel pending -MIRNA pending -blood cx pending -started on broad spectrum abx zosyn in ED. Will cont. this until blood cx result. -hematology consulted; may need bone marrow biopsy and antivirals/biologics if deemed HLH #Hyponatremia -Na 121 on admission. Recent poor oral intake 2/2 illness. Likely hypovolemic vs SIADH. Serum osm 259, Urine osm 434, Urine Na <10. -Na improved to 123 s/p 1L NSS bolus. -started on maintenance NSS @ 125. -trend sodium #Elevated troponin -trop 19 on admission. EKG without ischemic changes. Likely due to demand. Trend. #Asymptomatic Bacteruria -dirty catch urine appears infectious without symptoms. Urine cx pending. -Pt did start empiric UTI treatment last week as outpatient however discontinued after not tolerating bactrim. [place] is culture at that time was negative hence no further need for abx. -broad spectrum abx as above would cover offending organisms DVT ppx: lovenox FEN/GI: regular Code Status: full Dispo: med tele (2) Body aches: (3) Abdominal pain: (4) Acute hepatitis: (5) Elevated liver enzymes: (6) Elevated bilirubin: (7) Pancytopenia: (8) Hyponatremia: (9) Elevated troponin: (10) Mononucleosis: Admission and Anticipated Discharge Date Admission Date: March 24, 2023 Results & Data Results & Data Vital Signs (Past 12 Hours) Vital Signs Temp Pulse Pulse Resp BP BP Pulse Ox 03/24/23 11:33 37.2 C 109 H 20 125/80 92 03/24/23 09:56 03/24/23 08:17 37.3 C 98 H 20 109/72 94 03/24/23 07:22 86 03/24/23 01:37 112 H 03/24/23 03:13 37.8 C H 03/24/23 01:33 39.1 C H 94 H 20 128/81 94 03/24/23 01:00 102 H 24 146/81 H 94 O2 Del Method 03/24/23 11:33 Room Air 03/24/23 09:56 Room Air 03/24/23 08:17 Room Air 03/24/23 07:22 03/24/23 01:37 03/24/23 03:13 03/24/23 01:33 Room Air 03/24/23 01:00
[2023-03-24 14:54] LABS: BUN Creatinine Ratio 10.5 (10-20); Calcium 7.9 mg/dl (8.6-10.3); Creatinine Clr Calc Pharmacy 131.5 ml/min; Est GFR (Non-African American) 112.1 ml/min; Potassium 3.4 mmol/L (3.5-5.1)
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
--- NOTE | 2023-03-25 12:26 | Electrocardiogram Report ---
Test Reason : Blood Pressure : / mmHG Vent. Rate : 106 BPM Atrial Rate : 106 BPM P-R Int : 124 ms QRS Dur : 090 ms QT Int : 312 ms P-R-T Axes : 018 082 041 degrees QTc Int : 414 ms Sinus tachycardia Otherwise normal ECG When compared with ECG of 18-NOV-2021 13:46, No significant change was found Confirmed by Albaro Mccurdy ([id number]) on 03/25/2023 12:26:30 PM Referred By: REFERRED SELF Confirmed By:Albaro Mccurdy
[2023-03-25 12:43] LABS: HBSAG NON-REACTIVE (NON-REACTIVE); Hepatitis A Antibody IgM NON-REACTIVE (NON-REACTIVE); Hepatitis B Core Antibody IgM NON-REACTIVE (NON-REACTIVE)
[2023-03-26 10:28] LABS: Marijuana Quant, GCMS Urine 4881 ng/mL (<5)
[2023-03-27 14:37] LABS: EBV Nuclear Ag Antibody <18.00 U/mL; Epstein Barr Virus Early Ag Ab >150.00 U/mL
[2023-03-27 16:32] LABS: EBV DNA Quant Source Whole Blood
[2023-03-27 23:07] LABS: Anti Nuclear Antibody Screen NEGATIVE (NEGATIVE); Babesia microti DNA Not Detected (Not Detected)
== END 2023-03-24 18:22 | disposition short-term general hospital (02) | DRG 815 ==
LOC: ED 20:56 → 2W 03-24 00:46 → SUATTDRO 03-24 00:46 → INTOOBSV 03-24 00:46 → 2W 03-24 01:17

== ENCOUNTER 2023-10-31 16:24 | Inpatient (IN) ==
--- NOTE | 2023-10-31 16:31 | ED Triage Note ---
Date of Service October 31, 2023 Provider in Triage Author: Jhon Hardwick History of Present Illness This patient was briefly evaluated while in triage. An abbreviated physical exam was performed. This patient is a 23-year-old Female who presents to the ED for evaluation of constipation and not passing gas for the past 7 days. Patient reports nausea and vomiting. Patient does report occasional constipation, but nothing like this. Patient reports generalized abdominal discomfort that seems to be more focused within the right upper quadrant region. Patient reports that her stool was black and tarry, and mucus when she last did go to the bathroom. Patient currently rates her discomfort a 9 out of 10. Patient reports that she has tried all OTC products without relief. The patient reports that she was recently seen at another emergency department without any further workup or imaging, and was told, "You are fine". Physical Exam CONSTITUTIONAL: Healthy and well nourished. HEENT: No scleral icterus or conjunctival injection/pallor. RESPIRATORY: Clear to auscultation bilaterally with no wheezing, crackles, rhonchi or stridor. CARDIOVASCULAR: Regular rate and rhythm with no murmurs, rubs or gallops. GASTROINTESTINAL: Bowel sounds present in all quadrants. Patient has mild generalized tenderness to palpation. INTEGUMENTARY: No rash or other significant dermatologic conditions noted. HEMATOLOGIC: No ecchymosis or petechiae. PSYCHIATRIC: Positive affect. NEUROLOGIC: No focal neurologic deficits noted. Initial orders for labs and / or imaging were placed and patient was placed in the waiting area until a bed is available. Please see further documentation for the full ED course.
[2023-10-31] MEDS: ONDANSETRON INJ 2 MG/ML 2 ML VIAL IV STA (17:21)
[2023-10-31 17:45] LABS: Basophils # (auto) 0.02 K/uL (0.00-0.20); Basophils % (auto) 0.3 %; Eosinophils # (auto) 0.04 K/uL (0.00-0.50); Eosinophils % (auto) 0.7 %; Hematocrit (blood only) 40.9 % (37.0-47.0); Hemoglobin 14.3 g/dl (12.0-16.0); Immature Granulocytes # (auto) 0.01 K/uL (0.01-0.20); Immature Granulocytes % (auto) 0.2 %; Lymphocytes # (auto) 1.47 K/uL (1.20-3.40); Lymphocytes % (auto) 24.6 %; Mean Corpuscular Hemoglobin 28.9 pg (25.0-34.0); Mean Corpuscular Volume 82.6 fL (80.0-100.0); Mean Platelet Volume 9.7 fL (9.4-12.4); Monocytes # (auto) 0.41 K/uL (0.11-0.59); Monocytes % (auto) 6.9 %; Neutrophils # (auto) 4.02 K/uL (1.40-6.50); Neutrophils % (auto) 67.3 %; Platelet Count 268 K/uL (130-400); RDW Coefficient of Variation 13.1 % (11.5-14.5); RDW Standard Deviation 39.2 fL (36.4-46.3); Red Blood Count 4.95 M/uL (4.20-5.40); White Blood Count 5.97 K/ul (4.8-10.8)
[2023-10-31 17:58] LABS: Albumin Globulin Ratio 1.3 (0.9-2); Albumin Level 4.7 gm/dl (3.4-5.0); BUN Creatinine Ratio 12.5 (10-20); Bilirubin,Total 0.6 mg/dl (0.2-1.0); Calcium 9.7 mg/dl (8.6-10.3); Creatinine Clr Calc Pharmacy 136.2 ml/min; Est GFR (African American) 137.8 ml/min; Est GFR (Non-African American) 118.9 ml/min; Globulin 3.6 gm/dl (2.5-4.0); Potassium 3.9 mmol/L (3.5-5.1); Total Protein 8.3 gm/dl (6.0-8.3)
--- NOTE | 2023-10-31 18:10 | Emergency Department Note ---
Impression & Plan Abdominal pain, Abscess of liver ED Provider Note NAME: NINFA HONG AGE: 23 SEX: F : 2000 ARRIVES VIA: Walk-In INFORMANT: Patient ED PROVIDER(S): Nura Apodaca DO CHIEF COMPLAINT: abdominal pain HPI: Patient is a 21-year-old female who presents to the ER with a past medical history of mono and hepatitis for abdominal pain. She notes she has not had a bowel movement or passed gas for the past 7 days. No previous abdominal surgeries other than a liver biopsy performed by GI which caused active extra have and required IR to perform embolization at [facility]. Last menstrual period was about a week ago. Denies any headache or change in vision. No chest pain or shortness of breath. Pain is in the epigastric to right side of her abdomen. No dysuria, urgency, or frequency. No other exacerbating or remitting factors. She is taking multiple [id number] stool softeners as well as MiraLAX and an enema with no relief. She also admits to feeling hot and cold and having chills at home ADDITIONAL HISTORY OBTAINED: Per HPI Chronic Medical/Social Conditions Affecting Care: Per HPI PAST MEDICAL HISTORY:See Below PAST SURGICAL HISTORY:See Below FAMILY HISTORY:See Below SOCIAL HISTORY:See Below HOME MEDICATIONS:See Below ALLERGIES:See Below VITALS:See Below PHYSICAL EXAMINATION: GENERAL: Sitting up in bed, alert, well appearing, well nourished, no distress, non-toxic EYE EXAM: normal conjunctiva. OROPHARYNX: mucous membranes are moist NECK: supple, no nuchal rigidity, no adenopathy, non-tender LUNGS: Clear to auscultation. Normal chest wall mechanics HEART: no murmurs, S1 normal and S2 normal ABDOMEN: abdomen soft, non-tender, normo-active bowel sounds, no masses, no rebound or guarding. UPPER EXTREMITIES: upper extremities are grossly normal. LOWER EXTREMITIES: No pitting edema. NEURO EXAM: Normal sensorium, cranial nerves II-XII grossly intact, normal speech, no gross weakness of arms, no gross weakness of legs. MEDICAL DECISION MAKING: Patient is a 23-year-old female who presents ER for the above-stated complaint. IV was established blood work was obtained. Labs show no significant leukocytosis or anemia. BMP along LFTs bilirubin and lipase is unremarkable. TSH was unremarkable. UA was negative. negative. CT abdomen pelvis shows a 4.5 x 3.5 possible liver abscess which was hypodense. This was discussed with general surgery who recommend admission. I discussed case with Dr. Solorzano who from [facility] hospitalist service. Patient was given IV Zosyn. Following this general surgery later requested I discussed the case with IR at [facility] where she had a previous surgery was performed. They note that this is likely an abscess and recommended evaluation by our IR and surgery. If we are unable to handle this they would accept the patient to [facility] in transfer for additional workup. Jose was updated from our general surgery team in regards to this. IR at [facility] was unable to confirm if the cause of the biopsy was for possible cancerous mass versus just a fatty liver. Consults/Care Managements Discussions: Per MDM Triage Nursing notes reviewed. Limited review of prior medical records performed Vital Signs: reviewed and remarkable for HTN Differential diagnosis: Differential diagnoses includes but is not limited to gastritis, peptic ulcer disease, GERD, gallbladder disease, pancreatitis, small bowel obstruction, appendicitis, diverticulitis, hernia, urinary tract infection, torsion, /ectopic (if female), perforation, trauma, infectious. ER treatment provided: See below Diagnostics interpreted by me include EKG and cardiac monitoring as listed below: -Cardiac Monitoring: An order was placed for continuous cardiac monitoring. The monitor shows a rate of 80 with sinus rhythm. -ECG: none -Laboratory studies:Interpreted by me as stated above in MDM and shown below. Imaging studies: Xrays: As interpreted by me:none CTs show: CT abdomen pelvis as described above per radiology Procedures:none Critical Care: None Past Med/Surg History Medical History Liver hematoma Mononucleosis Pancytopenia Surgical History History of liver biopsy Social History Smoking Status: Current every day smoker Tobacco Type: E-cigarettes / Vaping Second Hand Exposure: Yes (Parents smoke); Do You Dip or Chew Tobacco: No; Hx Alcohol Use: No Hx Substance Use: No Preferred Language: Surinamese Communication Ability: Effective Deli Associate Required: No Beliefs That Will Affect Care: None Current Living Situation: Parent Current Living Situation Comment: With parents Feels Safe at Home: Yes Assistive Devices: None Allergies Allergies Allergy/AdvReac Type Severity Reaction Status Date / Time No Known Allergies Allergy Unverified 10/31/23 19:53 Home Meds Home Medications Medication Instructions Recorded Confirmed cyclobenzaprine 5 mg tablet 5 mg PO Q8 PRN Muscle Spasm 03/23/23 10/31/23 metoprolol succinate 25 mg 12.5 mg PO QAM 10/31/23 10/31/23 tablet,extended release 24 hr Results & Data (ED) Vital Signs Vital Signs - 24 hr 10/31/23 16:26 10/31/23 19:03 10/31/23 20:54 Temperature 36.8 C Temperature Source Temporal Artery Scan Pulse Rate 66 Pulse Rate [Finger] 73 77 Respiratory Rate 19 16 Respiratory Effort / Characteristics Non-Labored Spontaneous Respiratory Depth Normal Blood Pressure 192/144 H Blood Pressure [Right Arm] 139/95 138/87 Blood Pressure Mean 160 Blood Pressure Mean [Right Arm] 109 104 Blood Pressure Position [Right Arm] Semi-fowlers Semi-fowlers Pulse Oximetry 99 98 97 Oxygen Delivery Method Room Air Room Air Room Air Sepsis Recent Fever Within 48 Hours No Sepsis New/Unexplained Change in Mental Status N/A Sepsis Action Taken by Nursing No Action Required Laboratory Data 10/31/23 17:19 10/31/23 17:19 Lab Results 10/31/23 10/31/23 10/31/23 Range/Units 17:19 18:00 19:01 WBC 5.97 (4.8-10.8) K/ul RBC 4.95 (4.20-5.40) M/uL Hgb 14.3 (12.0-16.0) g/dl Hct 40.9 (37.0-47.0) % MCV 82.6 (80.0-100.0) fL MCH 28.9 (25.0-34.0) pg MCHC 35.0 (32.0-36.0) g/dL RDW Std Deviation 39.2 (36.4-46.3) fL RDW Coeff of Sami 13.1 (11.5-14.5) % Plt Count 268 (130-400) K/uL MPV 9.7 (9.4-12.4) fL Immature Gran % (Auto) 0.2 % Neut % (Auto) 67.3 % Lymph % (Auto) 24.6 % Ashley % (Auto) 6.9 % Eos % (Auto) 0.7 % Baso % (Auto) 0.3 % Neut # (Auto) 4.02 (1.40-6.50) K/uL Lymph # (Auto) 1.47 (1.20-3.40) K/uL Ashley # (Auto) 0.41 (0.11-0.59) K/uL Eos # (Auto) 0.04 (0.00-0.50) K/uL Baso # (Auto) 0.02 (0.00-0.20) K/uL Immature Gran # (Auto) 0.01 (0.01-0.20) K/uL Sodium 138 (136-145) mmol/L Potassium 3.9 (3.5-5.1) mmol/L Chloride 103 (98-107) mmol/L Carbon Dioxide 26 (21-32) mmol/L Anion Gap 9 (3-11) BUN 9 (6-23) mg/dl Creatinine 0.72 (0.6-1.2) mg/dl Est Cr Clr Drug Dosing 136.2 ml/min Est GFR ( Amer) 137.8 ml/min Est GFR (Non-Af Amer) 118.9 ml/min BUN/Creatinine Ratio 12.5 (10-20) Glucose 84 (70-99(Fasting)) mg/dl Lactate (0.4-2.0) mmol/L Calcium 9.7 (8.6-10.3) mg/dl Total Bilirubin 0.6 (0.2-1.0) mg/dl AST 17 (13-39) U/L ALT 13 (7-52) U/L Alkaline Phosphatase 99 (34-104) U/L Total Protein 8.3 (6.0-8.3) gm/dl Albumin 4.7 (3.4-5.0) gm/dl Globulin 3.6 (2.5-4.0) gm/dl Albumin/Globulin Ratio 1.3 (0.9-2) Lipase 17 (11-82) U/L TSH 1.887 (0.300-4.500) uIu/ml Urine Color Yellow Urine Appearance Clear (Clear) Urine pH 7.5 (4.5-7.5) Ur Specific [place] 1.011 (1.000-1.030) Urine Protein Negative (Negative) Urine Glucose (UA) Negative (Negative) Urine Ketones Negative (Negative) Urine Blood Negative (Negative) Urine Nitrite Negative (Negative) Urine Bilirubin Negative (Negative) Urine Urobilinogen Negative (Negative) Ur Leukocyte Esterase Negative (Negative) Urine Test Negative (Negative) 10/31/23 Range/Units 19:44 WBC (4.8-10.8) K/ul RBC (4.20-5.40) M/uL Hgb (12.0-16.0) g/dl Hct (37.0-47.0) % MCV (80.0-100.0) fL MCH (25.0-34.0) pg MCHC (32.0-36.0) g/dL RDW Std Deviation (36.4-46.3) fL RDW Coeff of Sami (11.5-14.5) % Plt Count (130-400) K/uL MPV (9.4-12.4) fL Immature Gran % (Auto) % Neut % (Auto) % Lymph % (Auto) % Ashley % (Auto) % Eos % (Auto) % Baso % (Auto) % Neut # (Auto) (1.40-6.50) K/uL Lymph # (Auto) (1.20-3.40) K/uL Ashley # (Auto) (0.11-0.59) K/uL Eos # (Auto) (0.00-0.50) K/uL Baso # (Auto) (0.00-0.20) K/uL Immature Gran # (Auto) (0.01-0.20) K/uL Sodium (136-145) mmol/L Potassium (3.5-5.1) mmol/L Chloride (98-107) mmol/L Carbon Dioxide (21-32) mmol/L Anion Gap (3-11) BUN (6-23) mg/dl Creatinine (0.6-1.2) mg/dl Est Cr Clr Drug Dosing ml/min Est GFR ( Amer) ml/min Est GFR (Non-Af Amer) ml/min BUN/Creatinine Ratio (10-20) Glucose (70-99(Fasting)) mg/dl Lactate 1.0 (0.4-2.0) mmol/L Calcium (8.6-10.3) mg/dl Total Bilirubin (0.2-1.0) mg/dl AST (13-39) U/L ALT (7-52) U/L Alkaline Phosphatase (34-104) U/L Total Protein (6.0-8.3) gm/dl Albumin (3.4-5.0) gm/dl Globulin (2.5-4.0) gm/dl Albumin/Globulin Ratio (0.9-2) Lipase (11-82) U/L TSH (0.300-4.500) uIu/ml Urine Color Urine Appearance (Clear) Urine pH (4.5-7.5) Ur Specific [place] (1.000-1.030) Urine Protein (Negative) Urine Glucose (UA) (Negative) Urine Ketones (Negative) Urine Blood (Negative) Urine Nitrite (Negative) Urine Bilirubin (Negative) Urine Urobilinogen (Negative) Ur Leukocyte Esterase (Negative) Urine Test (Negative) Administered Medications Discontinued Medications Hydromorphone HCl (Hydromorphone Inj 0.5 Mg/0.5 Ml Syr) 0.5 mg IV NOW STA Stop: 10/31/23 20:45 Last Admin: 10/31/23 20:54 Dose: 0.5 mg Documented By: Sodium Chloride (Nss) 1,000 mls @ 999 mls/hr IV .Q1H1M ONE Stop: 10/31/23 19:08 Last Infusion: 10/31/23 20:09 Dose: Infused Documented By: Admin: 10/31/23 19:00 Dose: 999 mls/hr Documented By: Ondansetron HCl (Ondansetron Inj 2 Mg/Ml 2 Ml Vial) 4 mg IV NOW STA Stop: 10/31/23 16:32 Last Admin: 10/31/23 17:21 Dose: 4 mg Documented By: KV Imaging Data Radiologist's Impression: Abdomen/Pelvis CT 10/31/23 16:[address] WITHOUT CONTRAST CT DOSE: 1176.21 mGy.cm HISTORY: Generalized abdominal pain; no BM in 7 days TECHNIQUE: Multiaxial CT images of the abdomen and pelvis were performed without contrast. A dose lowering technique was utilized adhering to the principles of ALARA. COMPARISON STUDY: Abdomen and pelvis CT 03/23/2023. FINDINGS: The lung bases are clear. No pneumoperitoneum. No pneumatosis. No acute fractures identified. The unenhanced gallbladder, pancreas, adrenal glands, and kidneys are unremarkable. No hydronephrosis. No retroperitoneal lymphadenopathy. Normal caliber abdominal aorta. No pelvic lymphadenopathy. Trace pelvic free fluid. This is likely physiologic. The uterus, ovaries, and bladder are unremarkable. Suboptimal evaluation for bowel pathology due to the lack of intravenous and oral contrast. However, there is no definite bowel wall thickening or obstruction. Normal appendix. Splenomegaly has improved. The spleen measures 13 cm in length. There has been interval development of a thick- walled hypodense lesion either within or adjacent to the inferior aspect of the right hepatic lobe (segment 6). This measures approximately 4.4 x 3.4 cm. This is likely subcapsular rather than intraparenchymal . This appears contain a septation and thin rind of hypodensity within the liver. Therefore, this could represent a walled off abscess or subcapsular implant. IMPRESSION: 1. Interval development of a thick-walled hypodense 4.4 x 3.4 cm lesion likely within a subcapsular location at the inferior aspect of the right hepatic lobe. Therefore, this could represent a walled off abscess or subcapsular lesion/implant. Endometriosis or an ectopic is considered less likely but also remains in the differential diagnosis. 2. No bowel wall thickening or obstruction. 3. Normal appendix. 4. Mild splenomegaly. This has improved. ACT 112: Negative or not required by law. Electronically signed by: Mark Bowden M.D. 10/31/2023 6:12 PM Discharge Plan Visit Data Chief Complaint: Constipation Stated Complaint: CONSTIPATION, CHILLS, ABDOMINAL PAIN, VOMITING ED Provider: Nura Apodaca Discharge Problem: Abdominal pain, Abscess of liver Forms Stand Alone Forms: [employer] Prescriptions Prescriptions: No Action cyclobenzaprine 5 mg tablet 5 mg PO Q8 PRN (Reason: Muscle Spasm) metoprolol succinate 25 mg tablet extended release 24 hr 12.5 mg PO QAM Referrals Referrals: Sunitha Red DO [Primary Care Provider] - Discharge Problem: Abdominal pain Qualifiers: Abdominal location: unspecified location Qualified Code(s): R10.9 - Unspecified abdominal pain
[2023-10-31 18:12] LABS: Thyroid Stimulating Hormone 1.887 uIu/ml (0.300-4.500)
--- NOTE | 2023-10-31 18:14 | CT Scan Report ---
ABDOMEN AND PELVIS CT WITHOUT CONTRAST CT DOSE: 1176.21 mGy.cm HISTORY: Generalized abdominal pain; no BM in 7 days TECHNIQUE: Multiaxial CT images of the abdomen and pelvis were performed without contrast. A dose lo wering technique was utilized adhering to the principles of ALARA. COMPARISON STUDY: Abdomen and pelvis CT 03/23/2023. FINDINGS: The lung bases are clear. No pneumoperitoneum. No pneumatosis. No acute fractures identifie d. The unenhanced gallbladder, pancreas, adrenal glands, and kidneys are unremarkable. No hydronephro sis. No retroperitoneal lymphadenopathy. Normal caliber abdominal aorta. No pelvic lymphadenopathy. T race pelvic free fluid. This is likely physiologic. The uterus, ovaries, and bladder are unremarkable . Suboptimal evaluation for bowel pathology due to the lack of intravenous and oral contrast. However , there is no definite bowel wall thickening or obstruction. Normal appendix. Splenomegaly has improv ed. The spleen measures 13 cm in length. There has been interval development of a thick-walled hypode nse lesion either within or adjacent to the inferior aspect of the right hepatic lobe (segment 6). Th is measures approximately 4.4 x 3.4 cm. This is likely subcapsular rather than intraparenchymal . Thi s appears contain a septation and thin rind of hypodensity within the liver. Therefore, this could re present a walled off abscess or subcapsular implant. IMPRESSION: 1. Interval development of a thick-walled hypodense 4.4 x 3.4 cm lesion likely within a subcapsular l ocation at the inferior aspect of the right hepatic lobe. Therefore, this could represent a walled of f abscess or subcapsular lesion/implant. Endometriosis or an ectopic is considered less lik madelin but also remains in the differential diagnosis. 2. No bowel wall thickening or obstruction. 3. Normal appendix. 4. Mild splenomegaly. This has improved. ACT 112: Negative or not required by law. Electronically signed by: Mark Bowden M.D. 10/31/2023 6:12 PM
[2023-10-31 18:23] LABS: Appearance Urine Clear (Clear); Bilirubin Urine Negative (Negative); Blood Urine Negative (Negative); Color Urine Yellow; Glucose Urine UA Negative (Negative); Ketones Urine Negative (Negative); Leukocyte Esterase Urine Negative (Negative); Nitrite Urine Negative (Negative); Protein Urine Negative (Negative); Specific Gravity Urine 1.011 (1.000-1.030); Urobilinogen Urine Negative (Negative); pH Urine 7.5 (4.5-7.5)
[2023-10-31] MEDS: SODIUM CHLORIDE 0.9% 1,000 ML IV ONE ×2 (19:00→22:10)
[2023-10-31 19:08] LABS: Pregnancy Test, Urine Negative (Negative)
--- NOTE | 2023-10-31 20:04 | Surgery Consultation ---
Date of Consultation October 31, 2023 Assessment & Plan (1) Liver lesion: I discussed with the treating physician in the emergency department the patient is being admitted to the hospital service. The cause of patient's abdominal pain is not clearly delineated but may be related to the liver lesion/fluid collection noted on CT scan. The cause of the lesion/fluid collection on her liver is not entirely certain but could potentially represent an abscess as the patient has had fevers, shakes, chills recently (although her white blood cell count is normal). I suspect hematoma is less likely as the patient has a normal hemoglobin and hematocrit. Certainly seroma could also be a potential cause. The radiologist interpreting the CT scan does raise a possibility of some type of subcapsular lesion or implant and also the potential of endometriosis being a cause. In addition, the patient does have some epigastric pain and does report a history of melanotic stools which raises the possibility of potential peptic ulcer disease or gastritis. (Of note the patient does report that she did have both upper and lower endoscopies and was told that there were no issues noted on either the studies, but she does note that this was done prior to her illness in February and March 2023. From surgical perspective we recommend the following: Provide analgesics Provide antiemetics Provide some gentle hydration with IV fluids I discussed with the treating emergency room physician and he is planning on initiating broad-spectrum antibiotics and obtaining appropriate culture Serial labs should be followed Scan will be reviewed by my attending physician Dr. Johnson and will make a determination to see if there is any role for interventional radiology to attempt a biopsy or sample the liver lesion/fluid Would recommend placing the patient on GI prophylaxis In addition would recommend obtaining a GI consultation secondary to the patient's reported melanotic stools and epigastric pain I think would be acceptable for the patient to have clear liquids tonight but would make her n.p.o. after midnight in the event that she requires any procedural intervention tomorrow Would recommend utilizing only SCDs for DVT prevention, no chemical means due to her noted melanotic stools and the potential for procedure intervention tomorrow Additional recommendations were forthcoming based on her clinical course as on 4 Supervising Physician Co-Signing Physician Notes pnt d/w Jose Campo, labs and imaging reviewed, agree with above. 23 y/o female w/ history of liver biopsy for hepatic dysfunction in setting of mono, complicated by bleed requiring IR embolization and percutaneous drainage. All done at [facility]. Now presents with abd pain and obstipation. CT with no obstruction, Liver with changes read as possible abscess, but likely changes from embolization given her history. No surgical intervention indicated. Should have [facility] radiology compare most recent CT with their imaging from prior stay to ensure this is secondary to prior interventions, and if intervention indicated, then she should likely be transferred. However, given normal wbc and no fevers, doubt the liver finding is anything signficant and is likely just related to history. History of Present Illness History of Present Illness This a 23-year-old female who presented [facility] emergency department secondary to abdominal pain. The patient notes that she has had the pain for approximately 7 days and is located primarily in the epigastric area as well as the right upper quadrant. She has had associated nausea and vomiting. The pain does not radiate but is worse with movement and better when she lies still. Patient does note that she had a fever as high as 101.8 proximally 3 days ago with associated shakes and chills. She denies any diarrhea or dysuria. The patient denies any recent travel outside of the critical access hospital. She also denies any insect or tick bites. She further relates that recently she has had several episodes of black tarry stool. It is noteworthy to mention that the patient was admitted to [facility] in February 2023. During this visit the patient was noted to have fever, elevated LFTs and bilirubin along with pancytopenia. The patient was noted to have mononucleosis. Hematology was consulted and raise a concern that patient had the possibility of hemophagocytic lymphohistiocytosis. Because of this it was recommended that patient be transferred to a tertiary care center and the patient was ultimately transferred to [facility]. The patient was admitted to [facility] from 03/24/2023 through 04/03/2023. 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 Due to the patient's elevated LFTs she was seen by hepatology and patient underwent a liver biopsy which showed nonspecific inflammatory changes. Patient ultimately had bleeding issues following her liver biopsy and she was taken to IR for emergent embolization. It was ultimately felt the patient's illness was secondary to Alfa-Carballo virus. The patient's LFTs did begin to trend in the normal range and she was ultimately able to be discharged on the date noted above. The patient required readmission to [facility] from 04/08/2023 through 04/14/2023. It was noted the patient felt well from her previous discharge for approximately 1 day but then began to have some nonspecific symptoms such as nausea and vomiting but ultimately developed febrile episodes she was readmitted to [facility] and she received empiric antibiotics. Infectious workup was noted to be essentially negative. At this time the patient was also experiencing some nonspecific abdominal pain and a repeat CT scan of her abdomen showed a liver hematoma which was drained. She was able to be discharged home in stable condition on the date noted above. Since arrival to [facility] emergency department today the patient has had labs and imaging which independent reviewed. A CT scan of the abdomen pelvis showed the patient had a 4.4 x 3.4 cm lesion in the inferior aspect of the right hepatic lobe there is felt to be subcapsular. Interpreting radiologist noted that this could represent a walled off abscess or some other type of subcapsular lesion or implant labs included CBC her white blood cell count, hemoglobin, hematocrit, platelet count were all normal. Chemistry profile showed sodium and potassium along with the BUN and creatinine were normal. All of the patient's LFTs were within the normal range. Lipase and TSH were normal. Urinalysis was negative for infection and a test was negative. At the time of my interview the patient was resting comfortably in bed she was in no distress. Allergies Allergy/AdvReac Type Severity Reaction Status Date / Time No Known Allergies Allergy Unverified 10/31/23 19:53 Home Medications Medication Instructions Recorded Confirmed Type cyclobenzaprine 5 mg tablet 5 mg PO Q8 PRN Muscle Spasm 03/23/23 10/31/23 History metoprolol succinate 25 mg 12.5 mg PO QAM 10/31/23 10/31/23 History tablet,extended release 24 hr Patient History Medical History Liver hematoma Mononucleosis Pancytopenia Surgical History History of liver biopsy Social History Smoking Status: Current every day smoker Tobacco Type: E-cigarettes / Vaping Second Hand Exposure: Yes (Parents smoke); Do You Dip or Chew Tobacco: No; Hx Alcohol Use: No Hx Substance Use: No Preferred Language: Tongan Communication Ability: Effective Admin Secretary Required: No Beliefs That Will Affect Care: None Current Living Situation: Parent Current Living Situation Comment: With parents Feels Safe at Home: Yes Assistive Devices: None Review of Systems Constitutional: + fever and + chills Ear, Nose, Mouth, Throat: no ear pain Respiratory: no cough Cardiovascular: no chest pain Gastrointestinal: + abdominal pain, + nausea, + vomiting a nd + melena Genitourinary: no dysuria Musculoskeletal: no back pain Integumentary: no rash Neurologic: no localized weakness Physical Exam Constitutional: WD/WN, vitals as above Eyes: + anicteric sclerae; no conjunctival abn ormality ENMT: Ears: no hearing impairment and no external ear abnormality No sublingual jaundice noted Neck: trachea midline Respiratory: normal respiratory effort; no respiratory distress and no labored breathing Cardiovascular: Rate/Rhythm: regular rate and regular rhythm Vessels: dorsalis pedis pulses present and radial pulses present Gastrointestinal (Abdomen): Abdomen is rotund but soft. It is nonrigid. Bowel sounds are present. There is no rebound tenderness or guarding but patient did have pain with palpation in the right upper quadrant as well as the epigastric area Musculoskeletal: No calf tenderness Skin: no rashes Neurologic: moves all extremities Psychiatric: A+Ox3, euthymic affect Results & Data Vital Signs (Past 12 Hours) Vital Signs Temp Pulse Pulse Resp BP BP Pulse Ox 10/31/23 19:03 73 16 139/95 98 10/31/23 16:26 36.8 C 66 19 192/144 H 99 O2 Del Method 10/31/23 19:03 Room Air 10/31/23 16:26 Room Air PG Care Time/CCT Total # of Minutes Spent Total Time Spent with Patient: Total time spent is greater than 50% in coordination of care (as documented) at patient's floor/unit and/or counseling patient: Coding Level of Care Code 43499 IN/OBS CONSULT LVL 5,80M Diagnoses Liver lesion K76.9
[2023-10-31] MEDS: HYDROmorphone INJ 0.5 MG/0.5 ML SYR IV STA (20:54)
[2023-10-31] MEDS: PIPERACILLIN/TAZOBACTAM 4.5 GM/100 ML BAG IV ONE (22:09)
--- NOTE | 2023-10-31 23:30 | History & Physical Report ---
Date of Service October 31, 2023 Assessment & Plan (1) Liver lesion: Plan: 23-year-old female with past medical history significant for transaminitis, hyponatremia, liver hematoma, pancytopenia and splenomegaly presents with constipation for 1 week and also nausea and vomiting and abdominal pain in the upper abdomen radiating to the back. Also having fevers. Denies any chest pain or shortness of breath. No cough. No headache. No runny nose or sore throat. No neck pain. Normal bladder movements. Resting comfortably and hemodynamically stable. Patient was admitted to [facility] in February 2003 with fever elevated LFTs and pancytopenia. Found to have mononucleosis. Patient was transferred to [place]. Her workup was positive for EBV virus. She was seen by hepatology for elevated LFTs and underwent liver biopsy which showed nonspecific inflammatory change but complicated with hepatic extravasation and hematoma. S/p emergent embolization by IR. She did fine and got discharged. Again got readmitted in few days for nausea vomiting and fevers. Received empiric antibiotics. Workup was negative. Repeat CT scan showed liver hematoma which was drained. She has ultrasound done on August 22, 2023 as outpatient which showed hepatic hematoma 4 X4.8 X4.9 cm dome down from previous 6.8 X 5.[address] scan showing 4.4x 3.4 cm within the subcapsular location of the inferior aspect the right hepatic lobe possible walled off abscess or subcapsular lesion. Abdominal pain Nausea vomiting Fevers CT scan showing possible abscess versus liver lesion History of hepatic hematoma Placing on empiric IV zosyn N.p.o., IV fluids, IV Dilaudid as needed IV Protonix twice daily Surgery consulted and appreciate inputs Possible IR drainage in a.m. Will consult GI Close monitor Constipation We will monitor for now History of tachycardia Holding p.o. metoprolol succinate for now Will monitor and restart as soon as possible DVT prophylaxis SCDs Disposition Medical floor Full code History of Present Illness Chief Complaint: Abdominal pain, nausea vomiting and constipation Primary Care Provider: Sunitha Red DO 23-year-old female with past medical history significant for transaminitis, hyponatremia, liver hematoma, pancytopenia and splenomegaly presents with constipation for 1 week and also nausea and vomiting and abdominal pain in the upper abdomen radiating to the back. Also having fevers. Denies any chest pain or shortness of breath. No cough. No headache. No runny nose or sore throat. No neck pain. Normal bladder movements. Resting comfortably and hemodynamically stable. Patient was admitted to [facility] in February 2003 with fever elevated LFTs and pancytopenia. Found to have mononucleosis. Patient was transferred to [place]. Her workup was positive for EBV virus. She was seen by hepatology for elevated LFTs and underwent liver biopsy which showed nonspecific inflammatory change but complicated with hepatic extravasation and hematoma. S/p emergent embolization by IR. She did fine and got discharged. Again got readmitted in few days for nausea vomiting and fevers. Received empiric antibiotics. Workup was negative. Repeat CT scan showed liver hematoma which was drained. She has ultrasound done on August 22, 2023 as outpatient which showed hepatic hematoma 4 X4.8 X4.9 cm dome down from previous 6.8 X 5.[address] scan showing 4.4x 3.4 cm within the subcapsular location of the inferior aspect the right hepatic lobe possible walled off abscess or subcapsular lesion. Past medical history. As mentioned above Past surgical history. Colonoscopy. And EGD with endoscopic ultrasound. IR arterial embolization. IR aspiration Social history. No smoking. Uses smokeless tobacco. Alcohol occasional. Occasional marijuana. Family history. No family history on file Allergies Allergy/AdvReac Type Severity Reaction Status Date / Time No Known Allergies Allergy Unverified 10/31/23 19:53 Home Medications Medication Instructions Recorded Confirmed Type cyclobenzaprine 5 mg tablet 5 mg PO Q8 PRN Muscle Spasm 03/23/23 10/31/23 History metoprolol succinate 25 mg 12.5 mg PO QAM 10/31/23 10/31/23 History tablet,extended release 24 hr Past Med/Surg History Medical History Liver hematoma Mononucleosis Pancytopenia Surgical History History of liver biopsy Social History Smoking Status: Current every day smoker Tobacco Type: E-cigarettes / Vaping Second Hand Exposure: Yes; Do You Dip or Chew Tobacco: No; Tobacco Cessation Education Requested by Patient: No Hx Alcohol Use: No Hx Substance Use: Yes Last Used Substance: Days (ago) Last Used Substance Other:: 3 days ago, 3 times a week. Preferred Language: [place] Citizen Communication Ability: Effective [place] Bander Required: No Beliefs That Will Affect Care: None Current Living Situation: Parent Current Living Situation Comment: With parents Other Information That Helps Us Care for You: No Feels Safe at Home: Yes Safety Concerns: Feels Safe At This Time Assistive Devices: None Review of Systems Review of Systems: All systems reviewed & are unremarkable except as noted in HPI & below Physical Exam Constitutional: General- Not in distress Head- atraumatic Eyes- PERRL. ENT- oropharynx clear Neck- supple, no JVD Lungs- clear to auscultation no wheezing or crackles Heart- regular rhythm; no murmur, no gallop. Abdomen- normal bowel sounds, soft, diffuse tender no rigidity no distension. Extremities- no pretibial edema, no erythema seen. Neuro- alert, oriented x 3; PERRL no facial palsy; no dysarthria; moves extremities Skin- warm & dry Results & Data Results & Data Vital Signs (Past 12 Hours) Vital Signs Temp Pulse Pulse Resp BP BP Pulse Ox 10/31/23 20:54 77 138/87 97 10/31/23 19:03 73 16 139/95 98 10/31/23 16:26 36.8 C 66 19 192/144 H 99 O2 Del Method 10/31/23 20:54 Room Air 10/31/23 19:03 Room Air 10/31/23 16:26 Room Air Diagnostic Findings Laboratory Results WBC 5.97 K/ul (4.8-10.8) 10/31/23 17:19 RBC 4.95 M/uL (4.20-5.40) 10/31/23 17:19 Hgb 14.3 g/dl (12.0-16.0) 10/31/23 17:19 Hct 40.9 % (37.0-47.0) 10/31/23 17:19 MCV 82.6 fL (80.0-100.0) 10/31/23 17:19 MCH 28.9 pg (25.0-34.0) 10/31/23 17:19 MCHC 35.0 g/dL (32.0-36.0) 10/31/23 17:19 RDW Std Deviation 39.2 fL (36.4-46.3) 10/31/23 17:19 RDW Coeff of Sami 13.1 % (11.5-14.5) 10/31/23 17:19 Plt Count 268 K/uL (130-400) 10/31/23 17:19 MPV 9.7 fL (9.4-12.4) 10/31/23 17:19 Immature Gran % (Auto) 0.2 % 10/31/23 17:19 Neut % (Auto) 67.3 % 10/31/23 17:19 Lymph % (Auto) 24.6 % 10/31/23 17:19 [place] % (Auto) 6.9 % 10/31/23 17:19 Eos % (Auto) 0.7 % 10/31/23 17:19 Baso % (Auto) 0.3 % 10/31/23 17:19 Neut # (Auto) 4.02 K/uL (1.40-6.50) 10/31/23 17:19 Lymph # (Auto) 1.47 K/uL (1.20-3.40) 10/31/23 17:19 [place] # (Auto) 0.41 K/uL (0.11-0.59) 10/31/23 17:19 Eos # (Auto) 0.04 K/uL (0.00-0.50) 10/31/23 17:19 Baso # (Auto) 0.02 K/uL (0.00-0.20) 10/31/23 17:19 Immature Gran # (Auto) 0.01 K/uL (0.01-0.20) 10/31/23 17:19 Sodium 138 mmol/L (136-145) 10/31/23 17:19 Potassium 3.9 mmol/L (3.5-5.1) 10/31/23 17:19 Chloride 103 mmol/L (98-107) 10/31/23 17:19 Carbon Dioxide 26 mmol/L (21-32) 10/31/23 17:19 Anion Gap 9 (3-11) 10/31/23 17:19 BUN 9 mg/dl (6-23) 10/31/23 17:19 Creatinine 0.72 mg/dl (0.6-1.2) 10/31/23 17:19 Est Cr Clr Drug Dosing 136.2 ml/min 10/31/23 17:19 Est GFR ( Amer) 137.8 ml/min 10/31/23 17:19 Est GFR (Non-Af Amer) 118.9 ml/min 10/31/23 17:19 BUN/Creatinine Ratio 12.5 (10-20) 10/31/23 17:19 Glucose 84 mg/dl (70-99(Fasting)) 10/31/23 17:19 Lactate 1.0 mmol/L (0.4-2.0) 10/31/23 19:44 Calcium 9.7 mg/dl (8.6-10.3) 10/31/23 17:19 Total Bilirubin 0.6 mg/dl (0.2-1.0) 10/31/23 17:19 AST 17 U/L (13-39) 10/31/23 17:19 ALT 13 U/L (7-52) 10/31/23 17:19 Alkaline Phosphatase 99 U/L (34-104) 10/31/23 17:19 Total Protein 8.3 gm/dl (6.0-8.3) 10/31/23 17:19 Albumin 4.7 gm/dl (3.4-5.0) 10/31/23 17:19 Globulin 3.6 gm/dl (2.5-4.0) 10/31/23 17:19 Albumin/Globulin Ratio 1.3 (0.9-2) 10/31/23 17:19 Lipase 17 U/L (11-82) 10/31/23 17:19 TSH 1.887 uIu/ml (0.300-4.500) 10/31/23 17:19 Urine Color Yellow 10/31/23 18:00 Urine Appearance Clear (Clear) 10/31/23 18:00 Urine pH 7.5 (4.5-7.5) 10/31/23 18:00 Ur Specific [place] 1.011 (1.000-1.030) 10/31/23 18:00 Urine Protein Negative (Negative) 10/31/23 18:00 Urine Glucose (UA) Negative (Negative) 10/31/23 18:00 Urine Ketones Negative (Negative) 10/31/23 18:00 Urine Blood Negative (Negative) 10/31/23 18:00 Urine Nitrite Negative (Negative) 10/31/23 18:00 Urine Bilirubin Negative (Negative) 10/31/23 18:00 Urine Urobilinogen Negative (Negative) 10/31/23 18:00 Ur Leukocyte Esterase Negative (Negative) 10/31/23 18:00 Urine Test Negative (Negative) 10/31/23 19:01 Impressions Abdomen/Pelvis CT 10/31/23 16:[address] WITHOUT CONTRAST CT DOSE: 1176.21 mGy.cm HISTORY: Generalized abdominal pain; no BM in 7 days TECHNIQUE: Multiaxial CT images of the abdomen and pelvis were performed without contrast. A dose lowering technique was utilized adhering to the principles of ALARA. COMPARISON STUDY: Abdomen and pelvis CT 03/23/2023. FINDINGS: The lung bases are clear. No pneumoperitoneum. No pneumatosis. No acute fractures identified. The unenhanced gallbladder, pancreas, adrenal glands, and kidneys are unremarkable. No hydronephrosis. No retroperitoneal lymphadenopathy. Normal caliber abdominal aorta. No pelvic lymphadenopathy. Trace pelvic free fluid. This is likely physiologic. The uterus, ovaries, and bladder are unremarkable. Suboptimal evaluation for bowel pathology due to the lack of intravenous and oral contrast. However, there is no definite bowel wall thickening or obstruction. Normal appendix. Splenomegaly has improved. The spleen measures 13 cm in length. There has been interval development of a thick- walled hypodense lesion either within or adjacent to the inferior aspect of the right hepatic lobe (segment 6). This measures approximately 4.4 x 3.4 cm. This is likely subcapsular rather than intraparenchymal . This appears contain a septation and thin rind of hypodensity within the liver. Therefore, this could represent a walled off abscess or subcapsular implant. IMPRESSION: 1. Interval development of a thick-walled hypodense 4.4 x 3.4 cm lesion likely within a subcapsular location at the inferior aspect of the right hepatic lobe. Therefore, this could represent a walled off abscess or subcapsular lesion/implant. Endometriosis or an ectopic is considered less likely but also remains in the differential diagnosis. 2. No bowel wall thickening or obstruction. 3. Normal appendix. 4. Mild splenomegaly. This has improved. ACT 112: Negative or not required by law. Electronically signed by: Mark Bowden M.D. 10/31/2023 6:12 PM Code Status & VTE Plan VTE Prophylaxis Plan VTE Prophylaxis will be ordered: Yes
[2023-11-01] MEDS: D5W AND NSS 1,000 ML IV SCH (01:00)
[2023-11-01] MEDS: HYDROmorphone INJ 0.5 MG/0.5 ML SYR IV PRN (01:02)
[2023-11-01] MEDS: PIPERACILLIN/TAZOBACTAM 4.5 GM in DEXTROSE 5% MINI-B 100 ML IV SCH (05:27)
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
--- OUTSIDE RECORDS SUMMARY | 2023-11-01 05:32 | External Medical Summary | Summary of Care ---
Author Name Unknown Organization [facility] Address [address] [place] [address] Phone [phone] Care Team Providers Care Supervisor Transferring And Boxing Name Role Phone Sunitha Red Primary Care Provider [phone] Reason for Visit * Reason Comments NEW PATIENT C/o rapid hair loss, started losing hair in February when she was sick with mono. The past two month has lost so much. Has been trying tea tree, biotin shampoo. * Evaluate & Treat - Unlimited Visits (Within 3 days (urgent)) - Pending Review Specialty Diagnoses / Procedures Referred By Enrrique quinn Referred To Contact Dermatology Diagnoses Hair loss Susan Whitfield PA-C [address] [place] [address] Referral ID Status Reason Start Date Expiration Date Visits Requested Visits Authorized [id number] Pending Review Specialty Services Required [phone] Encounter Details Date Type Department Care Team ([facility] Contact Info) Description 07/18/2023 11:00 AM EDT Office Visit Dermatology [address] [address] Maryann Jackson PA-C [address] [place] [address] Alopecia* Allergies Active Allergy Reactions Criticality Noted [...] Devlin PA-C . Tien Cowart MD., Dermatology [facility] Outpatient Specialty Departments [facility] [place] [address] * Maryann Jackson PA-C - 07/18/2023 11:03 [...] 07/31/2023 10:00 AM EST Nurse Only Dermatology [address], [address] [address] [place], Nurse Dermatology [address] [address] 08/02/2023 10:00 AM EST Nurse Only Dermatology [address], [place] [id number] [place] [address] [place], Nurse Dermatology [address] [address] 08/03/2023 10:00 AM EST Office Visit Family Practice [facility] [address] [place] [address] Sunitha Red DO [address] [place] [address] 08/10/2023 10:00 AM EST Office Visit Cardiology, [facility] [address] [place] [address] Chantal Mccallum PA-C [address] [place] [address] 08/22/2023 10:30 AM EST Imaging Radiology [facility] 132 [facility] [place] [address] 08/29/2023 7:15 AM EST Cardiac Studies Cardiac Studies, [facility] 132 [facility] [place] [address] Pending Results Name Type Priority Associated Diagnoses [...] Advance Directives occurred with: Patient Care Teams Supervisor Transferring And Boxing Relationship Specialty Start Date End Date Sunitha Red DO [address] [place] [address] PCP - General Family Medicine 05/22/23 documented as of this encounter
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
--- OUTSIDE RECORDS SUMMARY | 2023-11-01 05:32 | External Medical Summary ---
Author Name Unknown Address Unknown Organization K01:[facility] - [facility] [address] [facility] [address] Laboratory Report Ordering Provider Test Date Status RADHA RENNERWELL 07/18/2023 11:35:39 Final Observation Date Value Abnormality Reference (Units ) Status WBC, Total 07/18/2023 11:35:39 4.26 4.00-10.80 (K/uL) Final RBC 07/18/2023 11:35:39 4.75 3.85-5.15 (M/uL) Final Hemoglobin 07/18/2023 11:35:39 13.4 12.0-15.3 (g/dL) Final HCT 07/18/2023 11:35:39 43.0 36.0-45.2 (%) Final MCV 07/18/2023 11:35:39 90.5 81.5-97.5 (fL) Final MCH 07/18/2023 11:35:39 28.2 27.0-34.0 (pg) Final MCHC 07/18/2023 11:35:39 31.2 32.0-36.0 (g/dL) Final RDW 07/18/2023 11:35:39 12.7 11.5-15.5 (%) Final Platelets 07/18/2023 11:35:39 253 140-400 (K/uL) Final MPV 07/18/2023 11:35:39 10.6 6.6-11.1 (fL) Final Nucleated erythrocytes/100 leukocytes [Ratio] in Blood by Automated count 07/18/2023 11:35:39 0 <=0 (/100 WBCs) Final Performing Location [facility]ORY [facility] - [address] [place] [address]
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
--- OUTSIDE RECORDS SUMMARY | 2023-11-01 05:32 | External Medical Summary | Summary of Care ---
Author Name Unknown Organization [facility] Address [address] [place] [address] Phone [phone] Care Team Providers Care Fur Finisher Seamstress Name Role Phone Sunitha Red Primary Care Provider [phone] Reason for Visit * Reason Comments NEW [...] Diagnoses Hair loss Susan Whitfield PA-C [address] [place] [address] Referral ID Status Reason Start Date Expiration Date Visits Requested Visits Authorized [id number] Pending Review Specialty Services Required [phone] Encounter Details Date Type Department Care Team ([facility] Contact Info) Description 07/18/2023 11:00 AM EDT Office Visit Dermatology [address] [address] Maryann Jackson PA-C [address] [place] [address] Alopecia* Allergies Active Allergy Reactions Criticality Noted [...] Devlin PA-C . Tien Cowart MD., Dermatology [facility] Outpatient Specialty Departments [facility] [place] [address] * Maryann Jackson PA-C - 07/18/2023 11:03 AM EDT Nursing Notes: Keith Paris LPN 07/18/23 1106 Signed Patient identified [...] documented in this encounter Nursing Notes * Keith Paris LPN - 07/18/2023 11:06 AM EDT Patient identified by name and date. Chief Complaint Patient presents with NEW PATIENT C/o rapid hair loss, started losing hair in February when she was sick with mono. The past two month has lost so much. Has been trying tea tree, biotin shampoo. documented in this encounter Miscellaneous Notes * Addendum Note - Keith Paris LPN - 07/18/2023 3:31 PM EDTAddended by: KEITH PARIS on: 07/18/2023 03:31 PM Modules accepted: Orders documented in this encounter Plan of Treatment Upcoming Encounters Date Type Department Care Team (Late st Contact Info) Description 07/31/2023 10:00 AM EST Nurse Only Dermatology [address], [place] [address] [facility] [address] [place], Nurse Dermatology [place] [address] [place] [address] 08/02/2023 10:00 AM EST Nurse Only Dermatology [address], [place] [address] [facility] [place] [address] [place], Nurse Dermatology [place] [address] [place] [address] 08/03/2023 10:00 AM EST Office Visit Family [facility] [place] [address] Sunitha Red DO 132 [facility] [place] [address] 08/10/2023 10:00 AM EST Office Visit Cardiology, [facility] 132 [facility] [place] [address] Chantal Mccallum PA-C [address] [place] [address] 08/22/2023 10:30 AM EST Imaging Radiology [address] [place] [address] 08/29/2023 7:15 AM EST Cardiac Studies Cardiac Studies, [address] [place] [address] Pending Results Name Type Priority Associated Diagnoses [...] Advance Directives occurred with: Patient Care Teams Fur Finisher Seamstress Relationship Specialty Start Date End Date Sunitha Red DO [address] [place] [address] PCP - General Family Medicine 05/22/23 documented as of this encounter
--- OUTSIDE RECORDS SUMMARY | 2023-11-01 05:32 | External Medical Summary | Summary of Care ---
Author Name Unknown Organization [facility] Address [address] [place] [address] Phone [phone] Care Team Providers Care Radiation Officer Name Role Phone NedaSunitha Blanquita JOSÉ Primary Care Provider [phone] Reason for Visit * Reason Comments Outpatient Testing Encounter Details Date Type Department Care Team ([facility] st Contact Info) Description 07/18/2023 11:40 AM EDT Laboratory Laboratory [facility] [address] [place] [address] [facility] [address] [place], [place] [id number] Abnormal LFTs; Alopecia Allergies Active Allergy Reactions Criticality Noted Date [...] 07/31/2023 10:00 AM EST Nurse Only Dermatology [address], [place] [address] [facility] [place] [address] [place], Nurse Dermatology [place] [address] [facility] [place] [address] 08/02/2023 10:00 AM EST Nurse Only Dermatology [address], [place] [address] [facility] [place] [address] [place], Nurse Dermatology [facility] [address] [place] [place] [address] 08/03/2023 10:00 AM EST Office Visit Family Practice [facility] 132 [facility] [place] [address] Sunitha Red DO 132 [facility] [place] [address] 08/10/2023 10:00 AM EST Office Visit Cardiology, [facility] 132 [facility] [place] [address] Chantal Mccallum PA-C [address] [place] [address] [place] [address] 08/22/2023 10:30 AM EST Imaging Radiology [facility] 132 [facility] [place] [address] 08/29/2023 7:15 AM EST Cardiac Studies Cardiac Studies, [facility] [place] [address] Pending Results Name Type Priority Associated Diagnoses Date /Time HEPATIC FUNCTION PANEL Lab Routine Abnormal LFTs 07/18/2023 11:35 AM EDT IRON SCREEN, INCLUDING TIBC Lab Routine Alopecia 07/18/2023 11:35 AM EDT FOLIC ACID Lab Routine Alopecia 07/18/2023 11:35 AM EDT ANTINUCLEAR ANTIBODY (MIRNA) EIA SCREEN WITH REFLEX AB QUANT Lab Routine Alopecia 07/18/2023 11:35 AM EDT BASIC METABOLIC PANEL Lab Routine Alopecia 07/18/2023 11:35 AM EDT CBC WITH WBC DIFFERENTIAL Lab Routine Alopecia 07/18/2023 11:35 AM EDT ANTINUCLEAR ANTIBODY (MIRNA) SCREEN, LEEANN Lab Routine Alopecia 07/18/2023 11:35 AM EDT CBC Lab Routine Alopecia 07/18/2023 11:35 AM EDT DIFFERENTIAL, AUTOMATED Lab Routine Alopecia 07/18/2023 11:35 AM EDT Health Maintenance Due Date Last Done Comments [...] as of this encounter Visit Diagnoses Diagnosis Abnormal LFTs Other abnormal blood chemistry Alopecia Alopecia, unspecified documented in this encounter Advance [...] Advance Directives occurred with: Patient Care Teams Radiation Officer Relationship Specialty Start Date End Date Sunitha Red DO [address] [place] [address] PCP - General Family Medicine 05/22/23 documented as of this encounter
--- OUTSIDE RECORDS SUMMARY | 2023-11-01 05:32 | External Medical Summary ---
Author Name Unknown Address Unknown Organization [id number]:LABORATORY [facility] [place] - [address] [place] [address] Laboratory Report Ordering Provider Test Date Status UJDY SEYMOUR 07/18/2023 11:35:39 Final Observation Date Value Abnormality Reference (Units ) Status Albumin 07/18/2023 11:35:39 4.4 3.8-5.0 (g/dL) Final AST (Aspartate aminotransferase) 07/18/2023 11:35:39 18 10-35 (U/L) Final Alk Phos 07/18/2023 11:35:39 98 35-130 (U/L) Final ALT (Alanine aminotransferase) 07/18/2023 11:35:39 17 10-35 (U/L) Final Bilirubin, Total 07/18/2023 11:35:39 0.2 <=1.2 (mg/dL) Final Bilirubin, Direct 07/18/2023 11:35:39 <0.2 0.0-0.3 (mg/dL) Final Protein 07/18/2023 11:35:39 7.1 6.0-8.3 (g/dL) Final Performing Location LABORATORY [facility] [place] - [address] [place] [address]
--- OUTSIDE RECORDS SUMMARY | 2023-11-01 05:32 | External Medical Summary ---
Author Name Unknown Address Unknown Organization [id number]:[facility] [place] - [address] [facility] [place] [address] Laboratory Report Ordering Provider Test Date Status ZURDOTEDDY 07/18/2023 11:35:39 Final Observation Date Value Abnormality Reference (Units ) Status BUN 07/18/2023 11:35:39 11 6-20 (mg/dL) Final Creatinine 07/18/2023 11:35:39 0.7 0.5-1.0 (mg/dL) Final Glomerular filtration rate/1.73 sq M.predicted [Volume Rate/Area] in Serum, Plasma or Blood by Creatinine-based formula (CKD-EPI) 07/18/2023 11:35:39 >90 >=60 (mL/min) Final eGFR is calculated based on the CKD-EPI 2020 equation SODIUM 07/18/2023 11:35:39 140 135-146 (m mol/L) Final Potassium 07/18/2023 11:35:39 5.0 3.5-5.1 (m mol/L) Final Cl 07/18/2023 11:35:39 105 98-107 (mm ol/L) Final CO2 07/18/2023 11:35:39 23 22-32 (mmo l/L) Final Anion gap 07/18/2023 11:35:39 12 7-15 (mmol /L) Final Glucose 07/18/2023 11:35:39 77 70-120 (mg /dL) Final Calcium 07/18/2023 11:35:39 9.5 8.4-10.2 ( mg/dL) Final Performing Location [facility] - [facility] [address]
--- OUTSIDE RECORDS SUMMARY | 2023-11-01 05:32 | External Medical Summary | Summary of Care ---
Author Name Unknown Organization [facility] Address [address] [place] [address] Phone [phone] Care Team Providers Care Calender Feeder Name Role Phone Sunitha Wilder DO Primary Care Provider [phone] Reason for Visit * Reason Comments Re-Check Encounter Details Date Type Department Care Team (Late st Contact Info) Description 08/25/2023 9:40 AM EST Telemedicine Family Practice [facility] [address] [facility] [place] [address] Sunitha Wilder DO [address] [facility] [place] [address] Liver hematoma, sequela*; SOB (shortness of breath); [...] two unique identifiers. 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 The patient agreed to participate. Patient location: HOME. I was in a hospital or clinic location. After connecting through televideo,patient was verified with two unique identifiers. Patient (or authorized legal union contract representative) was then informed that this was [...] performed by Lesia Goodwin MD at ENDOSCOPY [facility] [address] EGD, W/ENDOSCOPIC US N/A 03/29/2023 ESOPHAGOGASTRODUODENOSCOPY (EGD), FLEXIBLE, TRANSORAL, ENDOSCOPIC ULTRASOUND performed by Naldo Horta MD at ENDOSCOPY [facility] IR ARTERIAL EMBOLIZATION 03/30/2023 IR ASPIRATION ABSCESS/COLLECTION [...] Care Team (Late st Contact Info) Description 08/29/2023 7:15 AM EST Cardiac Studies Cardiac Studies, [address] [place] [address] 11/13/2023 9:30 AM EST Office Visit Cardiology, [address] [place] [address] Chantal Mccallum PA-C [address] [place] [id number] 01/17/2024 10:40 AM EDT Office Visit Dermatology [facility] [address] [place] [address] Maryann Jackson PA-C [address] [place] [address] Scheduled Orders Name Type Priority Associated Diagnoses [...] Advance Directives occurred with: Patient Care Teams Calender Feeder Relationship Specialty Start Date End Date Sunitha Wilder DO [address] [place] [address] PCP - General Family Medicine 05/22/23 documented as of this encounter"
--- OUTSIDE RECORDS SUMMARY | 2023-11-01 05:32 | External Medical Summary ---
Author Name Unknown Address Unknown Organization [id number]:[facility] [place] [address] [place] [address] Laboratory Report Ordering Provider Test Date Status TEDDY RENNER 07/18/2023 11:35:39 Final Observation Date Value Abnormality Reference (Units ) Status Iron 07/18/2023 11:35:39 26 Below low normal 33-151 (ug/dL) Final Iron-binding capacity 07/18/2023 11:35:39 350 250-425 (ug/dL) Final Transferrin Sat % 07/18/2023 11:35:39 7 Below low normal 15-55 (%) Final Performing Location [facility] [place] - [address] [place] [address]
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
--- OUTSIDE RECORDS SUMMARY | 2023-11-01 05:32 | External Medical Summary ---
Author Name Unknown Address Unknown Organization [id number]:[facility] [place] [address] [place] [address] Laboratory Report Ordering Provider Test Date Status TEDDY RENNER 07/18/2023 11:35:39 Final Observation Date Value Abnormality Reference (Units ) Status Folic Acid 07/18/2023 11:35:39 5.1 >4.5 (ng/ mL) Final Performing Location [facility] [place] [address] [place] [address]
--- OUTSIDE RECORDS SUMMARY | 2023-11-01 05:32 | External Medical Summary ---
Author Name Unknown Address Unknown Organization K01:[facility] - [address] [place] [address] Laboratory Report Ordering Provider Test Date Status TEDDY RENNER 07/18/2023 11:35:39 Final Observation Date Value Abnormality Reference (Units ) Status SYNC LEUKOCYTES IN BLOOD BY AUTOMATED COUNT 07/18/2023 11:35:39 4.26 4.00-10.80 (K/uL) Final Segs 07/18/2023 11:35:39 47.5 40.0-75.0 (%) Final Lymphs % 07/18/2023 11:35:39 41.5 18.0-42.0 (%) Final Monos 07/18/2023 11:35:39 8.9 1.0-11.0 (%) Final Eosinophils 07/18/2023 11:35:39 1.2 0.0-6.0 (%) Final Basos 07/18/2023 11:35:39 0.7 0.0-2.0 (%) Final Immature Granulocyte, Percent 07/18/2023 11:35:39 0.2 0.0-2.0 (%) Final Absolute Segs 07/18/2023 11:35:39 2.02 1.80-7.70 (K/uL) Final Lymphs, absolute 07/18/2023 11:35:39 1.77 1.00-4.80 (K/ul) Final Monos, Abs 07/18/2023 11:35:39 0.38 0.00-1.10 (K/uL) Final Eos, Abs 07/18/2023 11:35:39 0.05 0.00-0.70 (K/uL) Final Basos, Abs 07/18/2023 11:35:39 0.03 0.00-0.20 (K/uL) Final Immature Granulocytes, Number 07/18/2023 11:35:39 0.01 0.00-0.20 (K/uL) Final Performing Location [facility] - [address] [facility] [address]
--- OUTSIDE RECORDS SUMMARY | 2023-11-01 05:33 | External Medical Summary ---
Author Name Unknown Address Unknown Organization K01:[facility] [place] [address] [place] [address] Laboratory Report Ordering Provider Test Date Status BRYAN AVILA 07/11/2023 15:58:16 Final Observation Date Value Abnormality Reference (Units ) Status Ferritin 07/11/2023 15:58:16 80 13-150 (ng /mL) Final Performing Location [facility] [place] [address] [facility] [address]
--- OUTSIDE RECORDS SUMMARY | 2023-11-01 05:33 | External Medical Summary ---
Author Name Unknown Address Unknown Organization [id number]:LAB[facility]ATORY [facility] [place] [address] [place] [address] Laboratory Report Ordering Provider Test Date Status JUDY SEYMOUR 07/11/2023 15:58:16 Final Observation Date Value Abnormality Reference (Units ) Status Albumin 07/11/2023 15:58:16 4.7 3.8-5.0 (g/dL) Final AST (Aspartate aminotransferase) 07/11/2023 15:58:16 26 10-35 (U/L) Final Alk Phos 07/11/2023 15:58:16 95 35-130 (U/L) Final ALT (Alanine aminotransferase) 07/11/2023 15:58:16 21 10-35 (U/L) Final Bilirubin, Total 07/11/2023 15:58:16 0.3 <=1.2 (mg/dL) Final Bilirubin, Direct 07/11/2023 15:58:16 <0.2 0.0-0.3 (mg/dL) Final Protein 07/11/2023 15:58:16 7.5 6.0-8.3 (g/dL) Final Performing Location LABORATORY [facility] [place] - [address] [place] [address]
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
--- OUTSIDE RECORDS SUMMARY | 2023-11-01 05:33 | External Medical Summary ---
Author Name Unknown Address Unknown Organization K01:[facility] [place] [address] [place] [address] Laboratory Report Ordering Provider Test Date Status BRYAN AVILA 07/11/2023 15:58:16 Final Observation Date Value Abnormality Reference (Units ) Status Folic Acid 07/11/2023 15:58:16 4.4 Below low normal >4 .5 (ng/mL) Final Performing Location LAB[facility]ATORY [facility] [place] - [address] [place] [address]
--- OUTSIDE RECORDS SUMMARY | 2023-11-01 05:33 | External Medical Summary ---
Author Name Unknown Address Unknown Organization K01:[facility] [place] [address] [place] [address] Laboratory Report Ordering Provider Test Date Status BRYAN AVILA 07/11/2023 15:58:16 Final Observation Date Value Abnormality Reference (Units ) Status Vitamin B12 07/11/2023 15:58:16 [phone] (pg/mL) Final Performing Location LAB[facility] [place] [address] [place] [address]
--- OUTSIDE RECORDS SUMMARY | 2023-11-01 05:33 | External Medical Summary ---
Author Name Unknown Address Unknown Organization K01:LAB[facility]ATORY [facility] [place] - [address] [facility] [address] Laboratory Report Ordering Provider Test Date Status BRYAN AVILA 07/11/2023 15:58:16 Final Observation Date Value Abnormality Reference (Units ) Status Iron 07/11/2023 15:58:16 41 33-151 (ug/dL) Final Iron-binding capacity 07/11/2023 15:58:16 352 250-425 (ug/dL) Final Transferrin Sat % 07/11/2023 15:58:16 12 Below low normal 15-55 (%) Final Performing Location [facility]ORY [facility] [place] [facility] [address] [facility] [address]
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
--- OUTSIDE RECORDS SUMMARY | 2023-11-01 05:33 | External Medical Summary | Summary of Care ---
Author Name Unknown Organization [facility] Address [address] [facility] [address] Phone [phone] Care Team Providers Care Surveyor Instrument Assistant Name Role Phone Neda Sunithadiana Juares DO Primary Care Provider [phone] Encounter Details Date Type Department Care Team Description 07/12/2023 Telephone Hepatology, [facility] [address] [place] [address] Amanda Ghotra DO [address] [facility], [place] [phone] Allergies Active Allergy Reactions Severity Noted Date [...] Miscellaneous Notes * Telephone Encounter - SARA Isabel - 07/12/2023 4:07 PM EDT November appt cx'd, confirmed w/ pt * Telephone Encounter - Amanda Ghotra DO - 07/12/2023 11:28 AM EDT Scheduling please cancel patient's follow up hepatology appointment. She does not require further hepatology follow up. Amanda Ghotra DO documented in this encounter Plan of Treatment Upcoming Encounters Date Type Specialty Care Team Description 07/18/2023 Office Visit Dermatology Maryann Jackson PA-C [address] [facility] [place] [address] 08/03/2023 Office Visit Family Medicine Sunitha Red DO [address] [place] [address] 08/10/2023 Office Visit Cardiology Chantal Mccallum PA-C [address] [place] [address] 08/22/2023 Imaging Radiology 08/29/2023 Cardiac Studies Cardiac Studies Health Maintenance Due Date Last Done Comments [...] Advance Directives occurred with: Patient Care Teams Surveyor Instrument Assistant Relationship Specialty Start Date End Date Sunitha Red DO [address] [place] [address] PCP - General Family Medicine 05/22/23 documented as of this encounter
--- OUTSIDE RECORDS SUMMARY | 2023-11-01 05:33 | External Medical Summary ---
Author Name Unknown Address Unknown Organization K01:LAB[facility]ATORY [facility] [place] - [address] [facility] [address] Laboratory Report Ordering Provider Test Date Status BYRAN AVILA 07/11/2023 15:58:16 Final Observation Date Value Abnormality Reference (Units ) Status TSH 07/11/2023 15:58:16 1.51 0.27-4.20 (uIU/mL) Final Performing Location LABORATORY [facility] - [address] [facility] [address]
--- OUTSIDE RECORDS SUMMARY | 2023-11-01 05:33 | External Medical Summary ---
Author Name Unknown Address Unknown Organization K01:LABORATORY [address] [facility] [address] Laboratory Report Ordering Provider Test Date Status TEDDY RENNER 07/18/2023 11:35:39 Final Observation Date Value Abnormality Reference (Units ) Status Nuclear IgG Ab [Ratio] in Serum by Immunoassay 07/18/2023 11:35:39 Negative Negative Final DNA double strand Ab [Presence] in Serum 07/18/2023 11:35:39 Negative Negative Final DOUBLE STRANDED DNA VALUE - [facility] 07/18/2023 11:35:39 0.7 <20 (IU/mL) Final Extractable nuclear Ab [Presence] in Serum 07/18/2023 11:35:39 Negative Negative Final Nuclear IgG Ab [Ratio] in Serum by Immunoassay 07/18/2023 11:35:39 0.1 <0.7 (Ratio) Final Screening is based on detect ion of the following antibodies: dsDNA, U1-DOCUMENTATION BILLING CLERK (RNP70, A, C), SS-A/Ro, SS-B / La, Galilea-1, Scl-70, Centromere B proteins and Sm proteins. In conjunction with clinical findings, this can aid in the diagnosis of systemic lupus erythematosous (SLE), mixed connective tissue disease (MCTD), Sjogren's syndrome, scleroderma and polymyositis/dermatomyositis.
However, a negative result does not rule out systemic rheumatic or other autoimmune disease. If clinically suspected, further evaluation and testing may be necessary. Please consult with Rheumatology Department.
Methodology: Fluorescent Enzyme Immunoassay. Performing Location LABORATORY [address] [facility] [address]
--- OUTSIDE RECORDS SUMMARY | 2023-11-01 05:33 | External Medical Summary | Summary of Care ---
Author Name Unknown Organization [facility] Address [address] [place] [address] Phone [phone] Care Team Providers Care Hospital Cleaner Name Role Phone Neda Sunitha Blanquita JOSÉ Primary Care Provider [phone] Reason for Referral * Evaluate & Treat - Unlimited Visits (Within 3 days (urgent)) - Pending Review Specialty Diagnoses / Procedures Referred By Enrrique quinn Referred To Contact Dermatology Diagnoses Hair loss Susan Whitfield PA-C [address] [place] [address] Referral ID Status Reason Start Date Expiration Date Visits Requested Visits Authorized [id number] Pending Review Specialty Services Required 3 [phone] Question Answer Referral Priority Within 3 days (urgent) Where should this appointment be scheduled? [facility] Are you referring the patient for Mohs Surgery and have a current positive skin cancer biopsy result? No What is the reason for the patient referral? Hair Loss Comments Diffuse, large amounts of rapid hair loss since illness in February; visible bald spots, unable to brush hair Reason for Visit * Reason Comments Acute Hair loss Encounter Details Date Type Department Care Team Description 07/11/2023 Telemedicine Family Practice [place] Reynaldo Sharpe [address] [place] [address] Susan Whitfield PA-C [address] [place] [address] Hair loss*; Pancytopenia (HCC); Vasospasm (HCC) Allergies Active Allergy Reactions Severity Noted Date [...] as of this encounter Progress Notes * Susan Whitfield PA-C - 07/11/2023 10:06 AM EDT Patient location: HOME. I was not in a hospital or clinic location. After connecting through [employer], patient was verified with two unique identifiers. Patient (or authorized legal customer counter representative) was then informed that this was a Telemedicine visit and being conducted confidentially over secure lines. Methods to assure confidentiality were taken. Patient acknowledged consent and understanding of privacy and security of the Telemedicine visit. The patient agreed to participate. Rohit Jones is a 22 year old female that presents for Acute (Hair loss) 22 y/o female presents c/o rapid hair loss. Pt was hospitalized in February for acute hepatitis secondary to mono. She has since recovered but for the last two months, her hair has been falling out in large clumps. She has lost over 50% of her hair, and has bald spots. Reports her scalp is sensitive and sore, but otherwise no rashes or lesions. She denies fevers, chills, chest pain, Sob, nausea, vomiting, diarrhea. Allergies and medications reviewed. Objective There were no vitals taken for this visit. There is no height or weight on file to calculate BMI. BP Readings from Last 3 Encounters: 06/21/23 112/76 06/07/23 112/68 05/22/23 106/75 Wt Readings from Last 3 Encounters: 06/21/23 82.1 kg (181 lb) 06/07/23 83.4 kg (183 lb 14.4 oz) 05/22/23 80.7 kg (178 lb) Physical Exam Constitutional: General: She is not in acute distress. Pulmonary: Effort: Pulmonary effort is normal. Skin: Comments: Diffuse hair loss noted with balding spots on the temples. Pt runs her hand through her hair while on the phone and a handful of hair comes out. She has a large clump of hair that she showsme, about the size of a softball, that was on her pillow when she woke up this morning. Neurological: General: No focal deficit present. Mental Status: She is oriented to person, place, and time. Psychiatric: Mood and Affect: Mood normal. Behavior: Behavior normal. Assessment and plan 1. Hair loss -labs as ordered -urgent referral to dermatology for further evaluation - TSH WITH FREE T4 IF INDICATED; Future - VITAMIN B12; Future - FOLIC ACID; Future - IRON SCREEN, INCLUDING TIBC; Future - FERRITIN; Future - DERMATOLOGY REFERRAL OP 2. Pancytopenia (HCC) -improving 3. Vasospasm (HCC) -resolved Total time today including reviewing chart before the visit, pertinent labs, imaging reports, face to face time, and documentation time was 15 minutes. The above was discussed and understanding was expressed. Susan Whitfield PA-C documented in this encounter Plan of Treatment Upcoming Encounters Date Type Specialty Care Team Description 07/11/2023 Office Visit Cardiology Chantal Mccallum PA-C [address] [place] [address] [place] [address] 08/03/2023 Office Visit Family Medicine Sunitha Red, DO [address] [place] [address] 08/22/2023 Imaging Radiology 08/29/2023 Cardiac Studies Cardiac Studies 12/11/2023 Office Visit Gastroenterology Amanda Ghotra Tere, DO [address] [place] [address] Scheduled Orders Name Type Priority Associated Diagnoses Orde r Schedule TSH WITH FREE T4 IF INDICATED Lab Routine Hair loss Expected: 07/11/2023 (Approximate), Expires: 07/10/2024 VITAMIN B12 Lab Routine Hair loss Expected: 07/11/2023 (Approximate), Expires: 07/10/2024 FOLIC ACID Lab Routine Hair loss Expected: 07/11/2023 (Approximate), Expires: 07/10/2024 IRON SCREEN, INCLUDING TIBC Lab Routine Hair loss Expected: 07/11/2023 (Approximate), Expires: 07/10/2024 FERRITIN Lab Routine Hair loss Expected: 07/11/2023 (Approximate), Expires: 07/10/2024 Scheduled Referrals Name Type Priority Associated Diagnoses Orde r Schedule DERMATOLOGY REFERRAL OP Referral Within 3 days (urgent) Hair loss Ordered: 07/11/2023 Health Maintenance Due Date Last Done Comments [...] as of this encounter Visit Diagnoses Diagnosis Hair loss- Primary Alopecia, unspecified Pancytopenia (HCC) Other pancytopenia Vasospasm (HCC) Peripheral vascular disease, unspecified documented in this encounter Advance Directives [...] Advance Directives occurred with: Patient Care Teams Hospital Cleaner Relationship Specialty Start Date End Date Sunitha Red DO [address] [place] [address] PCP - General Family Medicine 05/22/23 documented as of this encounter
--- OUTSIDE RECORDS SUMMARY | 2023-11-01 05:33 | External Medical Summary | Summary of Care ---
Author Name Unknown Organization [facility] Address [address] [facility] [place] [address] Phone [phone] Care Team Providers Care Instructional Technology Instructor Name Role Phone NedaSunitha Blanquita JOSÉ Primary Care Provider [phone] Reason for Visit * Reason Comments Follow Up Encounter Details Date Type Department Care Team Description 07/11/2023 Office Visit Cardiology, [facility] [address] [facility] [place] [address] Chantal Mccallum PA-C [address] [facility] [place] [address] Palpitations*; Sinus tachycardia Allergies Active Allergy Reactions Severity Noted Date [...] Date Smoking Tobacco: Never Smokeless Tobacco: Never Tobacco Cessation:Counseling Given: Not Answered Alcohol Use Standard Drinks/Week Comments Yes 0 (1 standard drink = 0.6 oz pur e alcohol) occasional Sex Assigned at Date Recorded Not on file Job Start Date Occupation Industry Not on file Not on file Not on file documented as of this encounter Last Filed Vital Signs Vital Sign Reading Time Taken Comments Blood Pressure 112/80 07/11/2023 3:28 PM EDT Pulse 98 07/11/2023 3:28 PM EDT Temperature - - Respiratory Rate - - Oxygen Saturation 97% 07/11/2023 3:28 PM EDT Inhaled Oxygen Concentration - - Weight 80.3 kg (177 lb) 07/11/2023 3:28 PM EDT Height - - Body Mass Index 29.45 [...] Progress Notes * Chantal Mccallum PA-C - 07/11/2023 3:30 PM EDT 07/11/2023 Cardiology Follow Up Primary Embedder: Dr. Juárez Past Medical History: Alfa Carballo virus Tachycardia HPI: Kerri Jones is a 22 year old female who presents for cardiology follow up. Last seen in clinic approximately one month ago by Dr. Juárez. Hospitalized at [facility] 03/2023 with elevated LFTs, fever, pancytopenia. Labs positive for EBV infection. Since then she has been having episodes of a racing heart that occur suddenly and last about 10 minutes before resolving. At last office visit, echo and Zio ordered. Zio was sent back yesterday, no results yet. Echo scheduled for 08/29/23. Presents today with continued episodes of heart racing, tachycardia, lightheadedness. Has PRN bisoprolol that she uses when heart races, tunnel vision, and feeling of dissociation. Had episode once last week and states bisoprolol helps but makes her very tired after. Today also notes headache, neck pain, and jaw pain. Denies chest pain, shortness of breath, edema, PND, orthopnea, syncope. Also dealing with hair loss, referred to dermatology, plans to get lab work today. Drinks water throughout the day, denies caffeine use. Has poor appetite and eats only one meal a day. REVIEW OF SYSTEMS: See HPI for pertinent [...] weeks REMOVE for 1 week and repeat Bisoprolol Fumarate 5 MG Oral Tablet (Zebeta) Take 0.5 Tablets by mouth as needed for Ventricular Tachycardia. Loratadine 10 MG Oral Tablet (Claritin) Take 1 Tablet by mouth in the morning. Do not start before April 15, 2023. 30 Tablet 0 Ondansetron 4 MG Oral Tablet Disintegrating (Zofran) Place 1 Tablet on tongue every 8 hours as needed for Nausea. dissolve on tongue. 20 Tablet 0 Acetaminophen 325 MG Oral Tablet (Tylenol) Take 2 Tablets by mouth every 6 hours. (Patient not taking: Reported on 06/20/2023) 30 Tablet 0 Furosemide 40 MG Oral Tablet [...] Types: Marijuana Comment: occasional OBJECTIVE/PHYSICAL EXAMINATION: BP 112/80 | Pulse 98 | Wt 80.3 kg (177 lb) | SpO2 97% | BMI 29.45 kg/m | BSA 1.92 m General: No acute distress. A+Ox3. HEENT: Normocephalic. Atraumatic. PERRL. EOMI. Conjunctiva and sclera clear. NECK: No carotid bruits. No JVD. Carotid upstrokes are brisk. Heart: Tachycardic. S1 and S2 noted. No murmur. No [...] insight. DATA Labs & Imaging Reviewed Below: EKG 06/21/23 Sinus bradycardia with sinus arrhythmia, [...] Palpitations 2. Sinus tachycardia - Patient with recent EBV infection and episodic tachycardia, symptoms may be related to EBV infection - symptomatic with palpitations, lightheadedness, overall not feeling well - awaiting Zio results to evaluate for arrhythmia - Echo scheduled - Discussed could trial daily beta shawn, but since feeling fatigued after taking bisoprolol, would wait for Zio results prior to adjusting medications - Lab work to be done today, ordered by PCP - Unfortunately limited results to help guide treatment, will await further testing - If worsening or persistent symptoms, instructed to contact office DISPOSITION: Follow up 1 month or sooner if symptoms worsen/fail to improve. All questions were answered to the patients satisfaction. Patient advised to report to ED with any and all emergencies. The patient agrees to the above plan and will call with additional questions or concerns. Chantal Mccallum PA-C Cardiology, [facility] [address] [place] [address] I spent a total of 35 minutes on the date of service in preparation, delivery, and documentation ofthe care provided to Kerri Jones excluding any time spent in the performance of separately billed services. This chart was completed in part utilizing [employer] Speech Voice Recognition Software. Grammatical errors, random [...] documented in this encounter Nursing Notes * Valencia Funk CMA - 07/11/2023 3:27 PM EDT Examination Room: 4 Name: Kerri Jones Date of : (2000) Reason for Visit: 1 m Interim Hospitalization(s): none Problems/Concerns: denied Chest Pain/SOB: chest pain and sob occasionally. My [facility] is a way you can talk to your provider online through e-mail. Would you like to sign up? I can activate it for you? ALREADY ACTIVE Patient was instructed to not get up on the exam table until directed and assisted by their provider; patient is to remain seated in the chair/ wheelchair/ exam table for fall prevention and safety reasons. Patient is aware to have assistance to step down off exam table with personnel. Patient voiced full comprehension of instructions. documented in this encounter Plan of Treatment Upcoming Encounters Date Type Specialty Care Team Description 07/18/2023 Office Visit Dermatology Maryann Jackson PA-C [address] [facility] [place] [address] 08/03/2023 Office Visit Family Medicine Sunitha Red DO [address] [place] [address] 08/10/2023 Office Visit Cardiology Chantal Mccallum PA-C [address] [place] [address] 08/22/2023 Imaging Radiology 08/29/2023 Cardiac Studies Cardiac Studies 12/11/2023 Office Visit Gastroenterology Amanda Ghotra DO [address] [place] [address] Health Maintenance Due Date Last Done Comments [...] Advance Directives occurred with: Patient Care Teams Instructional Technology Instructor Relationship Specialty Start Date End Date Sunitha Red DO [address] [place] [address] PCP - General Family Medicine 05/22/23 documented as of this encounter"
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
--- OUTSIDE RECORDS SUMMARY | 2023-11-01 05:34 | External Medical Summary ---
Author Name Unknown Address Unknown Organization [facility] [place] [address] Laboratory Report Ordering Provider Test Date Status JUDY SEYMOUR 06/21/2023 13:45:37 Final Observation Date Value Abnormality Reference (Units ) Status Albumin 06/21/2023 13:45:37 4.8 3.8-5.0 (g/dL) Final AST (Aspartate aminotransferase) 06/21/2023 13:45:37 21 10-35 (U/L) Final Alk Phos 06/21/2023 13:45:37 92 35-130 (U/L) Final ALT (Alanine aminotransferase) 06/21/2023 13:45:37 23 10-35 (U/L) Final Bilirubin, Total 06/21/2023 13:45:37 0.4 <=1.2 (mg/dL) Final Bilirubin, Direct 06/21/2023 13:45:37 <0.2 0.0-0.3 (mg/dL) Final Protein 06/21/2023 13:45:37 7.7 6.0-8.3 (g/dL) Final Performing Location [facility] [address] [place] [address]
--- OUTSIDE RECORDS SUMMARY | 2023-11-01 05:34 | External Medical Summary | Summary of Care ---
Author Name Unknown Organization [facility] Address [address] [facility] [place] [place] [address] Phone [phone] Care Team Providers Care Instructional Media Services Technician Name Role Phone Neda Sunitha Blanquita JOSÉ Primary Care Provider [phone] Reason for Visit * Reason Onset Date Comments Appointment 06/21/2023 Encounter Details Date Type Department Care Team Description 06/21/2023 Telephone Gastroenterology, [facility] [address] [place] [address] Amanda Ghotra DO [address] [place] [address] Appointment Allergies Active Allergy Reactions Severity Noted [...] encounter Miscellaneous Notes * Telephone Encounter - Bisi Mcclure - [...] Preston Juárez, DO [address] [place] [address] 08/03/2023 Office Visit Family Medicine Sunitha Red, DO [address] [place] [address] 08/22/2023 Imaging Radiology Health Maintenance Due Date Last Done Comments [...] Directives occurred with: Patient Care Teams Instructional Media Services Technician Relationship Specialty Start Date End Date Sunitha Red DO [address] [place] [address] PCP - General Family Medicine 05/22/23 documented as of this encounter
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
--- OUTSIDE RECORDS SUMMARY | 2023-11-01 05:34 | External Medical Summary | Summary of Care ---
Author Name Unknown Organization [facility] Address [address] [place] [address] Phone [phone] Care Team Providers Care French Translator Name Role Phone NedaSunitha Blanquita JOSÉ Primary Care Provider [phone] Encounter Details Date Type Department Care Team Description 06/09/2023 Result Scan Unspecified Department <No scans attached> Allergies Active Allergy Reactions Severity Noted Date [...] Juárez, DO [address] [place] [address] 08/03/2023 Office Visit Family Medicine Sunitha Red, DO [address] [place] [address] 08/22/2023 Imaging Radiology 10/10/2023 Telemedicine Gastroenterology Amanda Ghotra, DO [address] [place] [address] Health Maintenance Due Date Last Done Comments [...] Procedure Name Priority Date/Time Associated Diagnosis Comments OUTSIDE LAB RESULTS 06/09/2023 OUTSIDE LAB RESULTS 06/09/2023 documented in this encounter Results * OUTSIDE LAB RESULTS (06/09/2023) 06/09/2023 No Physician Data Unknown LABORATORY * OUTSIDE LAB RESULTS (06/09/2023) 06/09/2023 No Physician Data Unknown LABORATORY documented in this encounter Advance Directives Latest [...] Advance Directives occurred with: Patient Care Teams French Translator Relationship Specialty Start Date End Date Sunitha Red DO [address] [place] [address] PCP - General Family Medicine 05/22/23 documented as of this encounter
--- OUTSIDE RECORDS SUMMARY | 2023-11-01 05:34 | External Medical Summary | Summary of Care ---
Author Name Unknown Organization [facility] Address [address] [place] [address] Phone [phone] Care Team Providers Care Industrial Safety And Health Specialist Name Role Phone Neda Sunithadiana Juares DO Primary Care Provider [phone] Reason for Visit * Reason Comments Outpatient Testing Encounter Details Date Type Department Care Team Description 06/21/2023 Laboratory Laboratory, [facility] [address] [place] [address] [facility] [address] [place] [address] Abnormal LFTs Allergies Active Allergy Reactions Severity Noted Date [...] Office Visit Cardiology Chantal Mccallum PA-C [address] [place] [address] 08/03/2023 Office Visit Family Medicine Sunitha Red DO [address] [place] [address] 08/22/2023 Imaging Radiology 08/29/2023 Cardiac Studies Cardiac Studies Pending Results Name Type Priority Associated Diagnoses Date /Time HEPATIC FUNCTION PANEL Lab Routine Abnormal LFTs 06/21/2023 1:45 PM EDT Health Maintenance Due Date Last [...] Diagnosis Abnormal LFTs Other abnormal blood chemistry documented in this [...] Advance Directives occurred with: Patient Care Teams Industrial Safety And Health Specialist Relationship Specialty Start Date End Date Sunitha Red DO [address] [place] [address] PCP - General Family Medicine 05/22/23 documented as of this encounter
--- OUTSIDE RECORDS SUMMARY | 2023-11-01 05:36 | External Medical Summary ---
Author Name Unknown Address Unknown Organization K01:[facility] - [address] [facility] [place] [address] Laboratory Report Ordering Provider Test Date Status EMILY ANDREW 06/07/2023 16:39:01 Final Observation Date Value Abnormality Reference (Units ) Status SYNC LEUKOCYTES IN BLOOD BY AUTOMATED COUNT 06/07/2023 16:39:01 4.53 4.00-10.80 (K/uL) Final Segs 06/07/2023 16:39:01 38.5 Below low normal 40.0-75.0 (%) Final Lymphs % 06/07/2023 16:39:01 49.4 Above high normal 18.0-42.0 (%) Final Monos 06/07/2023 16:39:01 10.6 1.0-11.0 (%) Final Eosinophils 06/07/2023 16:39:01 0.9 0.0-6.0 (%) Final Basos 06/07/2023 16:39:01 0.4 0.0-2.0 (%) Final Immature Granulocyte, Percent 06/07/2023 16:39:01 0.2 0.0-2.0 (%) Final Absolute Segs 06/07/2023 16:39:01 1.74 Below low normal 1.80-7.70 (K/uL) Final Lymphs, absolute 06/07/2023 16:39:01 2.24 1.00-4.80 (K/ul) Final Monos, Abs 06/07/2023 16:39:01 0.48 0.00-1.10 (K/uL) Final Eos, Abs 06/07/2023 16:39:01 0.04 0.00-0.70 (K/uL) Final Basos, Abs 06/07/2023 16:39:01 0.02 0.00-0.20 (K/uL) Final Immature Granulocytes, Number 06/07/2023 16:39:01 0.01 0.00-0.20 (K/uL) Final Performing Location [facility] - [address] [facility] [address]
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
--- OUTSIDE RECORDS SUMMARY | 2023-11-01 05:36 | External Medical Summary ---
Author Name Unknown Address Unknown Organization [id number]:[facility] [place] [facility] [address] [place] [address] Laboratory Report Ordering Provider Test Date Status EMILY ANDREW 06/07/2023 16:39:01 Final Observation Date Value Abnormality Reference (Units ) Status WBC, Total 06/07/2023 16:39:01 4.53 4.00-10.8 0 (K/uL) Final RBC 06/07/2023 16:39:01 4.40 3.85-5.15 (M/uL) Final Hemoglobin 06/07/2023 16:39:01 12.9 12.0-15.3 (g/dL) Final Anemia reflex testing trigge rs on a HGB < 12.0 for Females and HGB < 13.0 for Males in accordance with the WHO Anemia Guidelines
Anemia reflex testing triggers on a HGB < 12.0 for Females and HGB < 13.0 for Males in accordance with the WHO Anemia Guidelines HCT 06/07/2023 16:39:01 39.4 36.0-45.2 (%) Final MCV 06/07/2023 16:39:01 89.5 81.5-97.5 (fL) Final MCH 06/07/2023 16:39:01 29.3 27.0-34.0 (pg) Final MCHC 06/07/2023 16:39:01 32.7 32.0-36.0 (g/dL) Final RDW 06/07/2023 16:39:01 13.2 11.5-15.5 (%) Final Platelets 06/07/2023 16:39:01 256 140-400 (K /uL) Final MPV 06/07/2023 16:39:01 10.7 6.6-11.1 ( fL) Final Nucleated erythrocytes/100 leukocytes [Ratio] in Blood by Automated count 06/07/2023 16:39:01 0 <=0 (/100 WBCs) Fi nal Performing Location [facility] [place] - [address] [place] [address]
--- OUTSIDE RECORDS SUMMARY | 2023-11-01 05:36 | External Medical Summary ---
Author Name Unknown Address Unknown Organization K01:[facility] [place] [facility] [place] - [address] [place] [address] Laboratory Report Ordering Provider Test Date Status EMILY ANDREW 06/07/2023 16:39:01 Final Observation Date Value Abnormality Reference (Units ) Status BUN 06/07/2023 16:39:01 9 6-20 (mg/dL) Final Creatinine 06/07/2023 16:39:01 0.6 0.5-1.0 (mg/dL) Final Glomerular filtration rate/1.73 sq M.predicted [Volume Rate/Area] in Serum, Plasma or Blood by Creatinine-based formula (CKD-EPI) 06/07/2023 16:39:01 >90 >=60 (mL/min) Final eGFR is calculated based on the CKD-EPI 2020 equation SODIUM 06/07/2023 16:39:01 137 135-146 (m mol/L) Final Potassium 06/07/2023 16:39:01 4.4 3.5-5.1 (m mol/L) Final Cl 06/07/2023 16:39:01 103 98-107 (mm ol/L) Final CO2 06/07/2023 16:39:01 24 22-32 (mmo l/L) Final Anion gap 06/07/2023 16:39:01 10 7-15 (mmol /L) Final Glucose 06/07/2023 16:39:01 88 70-120 (mg /dL) Final Calcium 06/07/2023 16:39:01 9.8 8.4-10.2 ( mg/dL) Final Performing Location [facility] [place] [address] [place] [address]
--- OUTSIDE RECORDS SUMMARY | 2023-11-01 05:36 | External Medical Summary ---
Author Name Unknown Address Unknown Organization K0G[facility] [address] [place] [address] Laboratory Report Ordering Provider Test Date Status TEODORO ARAUJO 05/15/2023 09:04:18 Final Observation Date Value Abnormality Reference (Units ) Status Bilirubin, Direct 05/15/2023 09:04:18 0.3 0. 0-0.3 (mg/dL) Final Performing Location [facility] - [address] [place] [address]
--- OUTSIDE RECORDS SUMMARY | 2023-11-01 05:36 | External Medical Summary | Summary of Care ---
Author Name Unknown Organization [facility] Address [address] [place] [address] Phone [phone] Care Team Providers Care Communications Clerk Name Role Phone NedaDustindiana Juares DO Primary Care Provider [phone] Reason for Visit * Reason Comments Outpatient Testing Encounter Details Date Type Department Care Team Description 06/07/2023 Laboratory Laboratory, Health system [address] [place] [address] [facility] [address] [place] [address] Abdominal pain, generalized; Nausea; Diarrhea, unspecified type Allergies Active Allergy [...] Juárez, DO [address] [place] [address] 08/03/2023 Office Visit Family Medicine Sunitha Red, DO [address] [place] [address] 08/22/2023 Imaging Radiology 10/10/2023 Telemedicine Gastroenterology Amanda Ghotra, DO [address] [place] [address] Pending Results Name Type Priority Associated Diagnoses Date /Time CBC WITH WBC DIFFERENTIAL AND ANEMIA REFLEX WORKUP Lab Routine Abdominal pain, generalized Nausea Diarrhea, unspecified type 06/07/2023 4:39 PM EDT HEPATIC FUNCTION PANEL Lab Routine Abdominal pain, generalized Nausea Diarrhea, unspecified type 06/07/2023 4:39 PM EDT BASIC METABOLIC PANEL Lab Routine Abdominal pain, generalized Nausea Diarrhea, unspecified type 06/07/2023 4:39 PM EDT ANEMIA CBC Lab Routine Abdominal pain, generalized Nausea Diarrhea, unspecified type 06/07/2023 4:39 PM EDT DIFFERENTIAL, AUTOMATED Lab Routine Abdominal pain, generalized Nausea Diarrhea, unspecified type 06/07/2023 4:39 PM EDT ANEMIA REFLEX CHEMISTRY HOLD Lab Routine Abdominal pain, generalized Nausea Diarrhea, unspecified type 06/07/2023 4:39 PM EDT Health Maintenance Due Date Last [...] this encounter Visit Diagnoses Diagnosis Abdominal pain, generalized Nausea Nausea alone Diarrhea, unspecified type documented [...] Advance Directives occurred with: Patient Care Teams Communications Clerk Relationship Specialty Start Date End Date Sunitha Red DO [address] [place] [id number] PCP - General Family Medicine 05/22/23 documented as of this encounter
--- OUTSIDE RECORDS SUMMARY | 2023-11-01 05:36 | External Medical Summary ---
Author Name Unknown Address Unknown Organization K0G:[facility]ORY [facility] [address] - [address] [place] [address] Laboratory Report Ordering Provider Test Date Status FELICITA PERALTA 05/15/2023 09:04:18 Final Discharge Order Observation Date Value Abnormality Reference (Units ) Status SYNC LEUKOCYTES IN BLOOD BY AUTOMATED COUNT 05/15/2023 09:04:18 4.19 4.00-10.80 (K/uL) Final Segs 05/15/2023 09:04:18 36.0 Below low normal 40.0-75.0 (%) Final Lymphs % 05/15/2023 09:04:18 50.4 Above high normal 18.0-42.0 (%) Final Monos 05/15/2023 09:04:18 12.4 Above high normal 1.0-11.0 (%) Final Eosinophils 05/15/2023 09:04:18 0.7 0.0-6.0 (%) Final Basos 05/15/2023 09:04:18 0.5 0.0-2.0 (%) Final Absolute Segs 05/15/2023 09:04:18 1.51 Below low normal 1.80-7.70 (K/uL) Final Lymphs, absolute 05/15/2023 09:04:18 2.11 1.00-4.80 (K/ul) Final Monos, Abs 05/15/2023 09:04:18 0.52 0.00-1.10 (K/uL) Final Eos, Abs 05/15/2023 09:04:18 0.03 0.00-0.70 (K/uL) Final Basos, Abs 05/15/2023 09:04:18 0.02 0.00-0.20 (K/uL) Final Performing Location [facility] [address] - [address] [place] [address]
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
--- OUTSIDE RECORDS SUMMARY | 2023-11-01 05:36 | External Medical Summary ---
Author Name Unknown Address Unknown Organization K0G:[facility] [address] - [address] [place] [address] Laboratory Report Ordering Provider Test Date Status TEODORO ARAUJO 05/15/2023 09:04:18 Final Warfarin Therapy
INR: 2 .0-3.0 conventional anticoagulation
INR: 2.5- 3.5 high intensity anticoagulation Observation Date Value Abnormality Reference (Units ) Status PT 05/15/2023 09:04:18 14.1 11.6-15.2 (seconds) Final INR 05/15/2023 09:04:18 1.1 0.8-1.2 Final Performing Location [facility] - [address] [place] [address]
--- OUTSIDE RECORDS SUMMARY | 2023-11-01 05:36 | External Medical Summary ---
Author Name Unknown Address Unknown Organization K0G:[facility]ORY [facility] [address] - [address] [place] [address] Laboratory Report Ordering Provider Test Date Status FELICITA PERALTA 05/15/2023 09:04:18 Final Discharge Order Observation Date Value Abnormality Reference (Units ) Status WBC, Total 05/15/2023 09:04:18 4.19 4.00-10.8 0 (K/uL) Final RBC 05/15/2023 09:04:18 4.61 3.85-5.15 (M/uL) Final Hemoglobin 05/15/2023 09:04:18 13.6 12.0-15.3 (g/dL) Final HCT 05/15/2023 09:04:18 40.0 36.0-45.2 (%) Final MCV 05/15/2023 09:04:18 86.8 81.5-97.5 (fL) Final MCH 05/15/2023 09:04:18 29.5 27.0-34.0 (pg) Final MCHC 05/15/2023 09:04:18 34.0 32.0-36.0 (g/dL) Final RDW 05/15/2023 09:04:18 14.7 11.5-15.5 (%) Final Platelets 05/15/2023 09:04:18 258 140-400 (K /uL) Final MPV 05/15/2023 09:04:18 9.7 6.6-11.1 ( fL) Final Performing Location [facility]ORY [facility] [address] - [address] [place] [address]
--- OUTSIDE RECORDS SUMMARY | 2023-11-01 05:36 | External Medical Summary ---
Author Name Unknown Address Unknown Organization K01:[facility] - [address] [place] [address] Laboratory Report Ordering Provider Test Date Status EMILY ANDREW 06/07/2023 16:39:01 Final Observation Date Value Abnormality Reference (Units ) Status Albumin 06/07/2023 16:39:01 4.2 3.8-5.0 (g/dL) Final AST (Aspartate aminotransferase) 06/07/2023 16:39:01 81 Above high normal 10-35 (U/L) Final Alk Phos 06/07/2023 16:39:01 83 35-130 (U/L) Final ALT (Alanine aminotransferase) 06/07/2023 16:39:01 44 Above high normal 10-35 (U/L) Final Bilirubin, Total 06/07/2023 16:39:01 0.3 <=1.2 (mg/dL) Final Bilirubin, Direct 06/07/2023 16:39:01 <0.2 0.0-0.3 (mg/dL) Final Protein 06/07/2023 16:39:01 7.6 6.0-8.3 (g/dL) Final Performing Location [facility] - [address] [place] [address]
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
--- OUTSIDE RECORDS SUMMARY | 2023-11-01 05:36 | External Medical Summary ---
Author Name Unknown Address Unknown Organization K01:[facility] - [address] [place] [address] Laboratory Report Ordering Provider Test Date Status TEODORO ARAUJO 05/15/2023 09:04:18 Final Observation Date Value Abnormality Reference (Units ) Status CRP, low-sensitivity 05/15/2023 09:04:18 5 <=5 (mg/L) Final Performing Location [facility] - [address] [place] [address]
--- OUTSIDE RECORDS SUMMARY | 2023-11-01 05:36 | External Medical Summary ---
Author Name Unknown Address Unknown Organization K01:[facility] [address] [facility] [address] Laboratory Report Ordering Provider Test Date Status TEODORO ARAUJO 05/15/2023 09:04:18 Final Observation Date Value Abnormality Reference (Units ) Status TSH 05/15/2023 09:04:18 2.03 0.27-4.20 (uIU/mL) Final Performing Location [facility] [address] [facility] [address]
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
--- OUTSIDE RECORDS SUMMARY | 2023-11-01 05:37 | External Medical Summary ---
Author Name Unknown Address Unknown Organization [id number]:[facility] [address] [place] [address] Laboratory Report Ordering Provider Test Date Status FELICITA PERALTA 05/15/2023 09:04:18 Final Discharge Order Observation Date Value Abnormality Reference (Units ) Status BUN 05/15/2023 09:04:18 7 6-20 (mg/dL) Final Creatinine 05/15/2023 09:04:18 0.7 0.5-1.0 (mg/dL) Final Glomerular filtration rate/1.73 sq M.predicted [Volume Rate/Area] in Serum, Plasma or Blood by Creatinine-based formula (CKD-EPI) 05/15/2023 09:04:18 >90 >=60 (mL/min) Final eGFR is calculated based on the CKD-EPI 2020 equation SODIUM 05/15/2023 09:04:18 139 135-146 (m mol/L) Final Potassium 05/15/2023 09:04:18 4.0 3.5-5.1 (m mol/L) Final Cl 05/15/2023 09:04:18 103 98-107 (mm ol/L) Final CO2 05/15/2023 09:04:18 23 22-32 (mmo l/L) Final Anion gap 05/15/2023 09:04:18 13 7-15 (mmol /L) Final Glucose 05/15/2023 09:04:18 92 70-120 (mg /dL) Final Albumin 05/15/2023 09:04:18 4.6 3.8-5.0 (g /dL) Final AST (Aspartate aminotransferase) 05/15/2023 09:04:18 38 Above high normal 10-35 (U/L) Final Alk Phos 05/15/2023 09:04:18 89 35-130 (U/ L) Final Bilirubin, Total 05/15/2023 09:04:18 0.8 <=1 .2 (mg/dL) Final Calcium 05/15/2023 09:04:18 10.1 8.4-10.2 ( mg/dL) Final Protein 05/15/2023 09:04:18 7.9 6.0-8.3 (g /dL) Final ALT (Alanine aminotransferase) 05/15/2023 09:04:18 38 Above high normal 10-35 (U/L) Final Performing Location [facility] [address] [facility] [address]
--- OUTSIDE RECORDS SUMMARY | 2023-11-01 05:37 | External Medical Summary ---
Author Name Unknown Address Unknown Organization [id number]:[facility] - [facility] [address] Laboratory Report Ordering Provider Test Date Status YOLIS ARAUJOLEY 05/15/2023 09:04:18 Final Observation Date Value Abnormality Reference (Units ) Status Tissue transglutaminase IgG Ab [Presence] in Serum 05/15/2023 09:04:18 Negative Negative Final Tissue transglutaminase IgG Ab [Units/volume] in Serum 05/15/2023 09:04:18 <0.6 <7 (U/mL) Final Tissue transglutaminase IgA Ab [Presence] in Serum by Immunoassay 05/15/2023 09:04:18 Negative Negative Final Tissue transglutaminase IgA Ab [Units/volume] in Serum by Immunoassay 05/15/2023 09:04:18 0.5 <7 (U/mL) Final Performing Location [facility] - [facility] [place] [address]
[2023-11-01 05:57] LABS: Basophils # (auto) 0.01 K/uL (0.00-0.20); Basophils % (auto) 0.3 %; Eosinophils # (auto) 0.07 K/uL (0.00-0.50); Eosinophils % (auto) 1.8 %; Hematocrit (blood only) 35.9 % (37.0-47.0); Immature Granulocytes # (auto) 0.01 K/uL (0.01-0.20); Immature Granulocytes % (auto) 0.3 %; Lymphocytes # (auto) 1.42 K/uL (1.20-3.40); Lymphocytes % (auto) 37.3 %; Mean Corpuscular Hemoglobin 28.4 pg (25.0-34.0); Mean Corpuscular Hgb Conc 33.4 g/dL (32.0-36.0); Mean Corpuscular Volume 85.1 fL (80.0-100.0); Mean Platelet Volume 9.8 fL (9.4-12.4); Monocytes # (auto) 0.42 K/uL (0.11-0.59); Neutrophils # (auto) 1.88 K/uL (1.40-6.50); Neutrophils % (auto) 49.3 %; Platelet Count 170 K/uL (130-400); Red Blood Count 4.22 M/uL (4.20-5.40); White Blood Count 3.81 K/ul (4.8-10.8)
[2023-11-01 06:27] LABS: Albumin Level 3.5 gm/dl (3.4-5.0); BUN Creatinine Ratio 10.7 (10-20); Bilirubin Direct 0.1 mg/dl (0-0.2); Bilirubin,Total 0.4 mg/dl (0.2-1.0); Calcium 8.4 mg/dl (8.6-10.3); Creatinine Clr Calc Pharmacy 126.2 ml/min; Est GFR (African American) 131.1 ml/min; Est GFR (Non-African American) 113.1 ml/min; Magnesium 1.7 mg/dl (1.7-2.4); Potassium 4.4 mmol/L (3.5-5.1); Total Protein 5.8 gm/dl (6.0-8.3)
[2023-11-01 09:34] LABS: INR 1.1 (0.9-1.1); Prothrombin Time 11.6 Seconds (9.0-12.0)
[2023-11-01] MEDS: PANTOprazole 40 MG in SYRINGE 0 ML IV SCH (10:00)
--- NOTE | 2023-11-01 10:22 | Surgery Progress Note ---
Date of Service November 01, 2023 Assessment & Plan (1) Liver lesion: Plan: liver lesion could represent changes from bx/embolization/hematoma drainage vs abscess, wbc normal and af, though endorses fevers at home. K[facility] IR recommend sampling, will discuss with our IR and if not able to be performed recommend transfer or outpatient eval. No surgical intervention IR aspiration here or at [place] Admission and Anticipated Discharge Date Admission Date: October 31, 2023 Subjective Still without bowel movement or flatus, pain improved but still present in ruq. Physical Exam Constitutional: WD/WN, vitals as above Respiratory: normal respiratory effort, lungs clear to auscultation Cardiovascular: RRR, no murmur, no edema Gastrointestinal (Abdomen): Percussion/Palpation: + abdomen tender (RUQ mild ttp) and abdomen soft; no guarding, abdomen not rigid and no hernia Results & Data Vital Signs (Past 12 Hours) Vital Signs Temp Pulse Resp BP Pulse Ox O2 Del Method 11/01/23 07:51 36.7 C 56 L 16 111/70 99 Room Air 11/01/23 00:36 36.7 C 84 18 124/80 97 Room Air 11/01/23 00:12 Room Air PG Care Time/CCT Total # of Minutes Spent Total Time Spent with Patient: Total time spent is greater than 50% in coordination of care (as documented) at patient's floor/unit and/or counseling patient: Coding Level of Care Code 89345 SUB INP/OBS CARE 2/35MIN Diagnoses Liver lesion K76.9
--- NOTE | 2023-11-01 10:51 | Gastrointestinal Consultation ---
Date of Consultation November 01, 2023 Assessment & Plan (1) Liver lesion: (2) Constipation: Pt is a 23 yo female seen for diffuse abd pain, n/v symptoms. She is c/o constipation despite trials of laxatives and enema at home. 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 Her current CT abd/pelvis showed 4cm R subcapsular liver lesion which is suspected to be old hematoma vs abscess. - KUB today - Miralax 17g BID, Dulcolax 10mg PO qHS - OOB, ambulate, avoid narcotics - Regarding liver lesion: normal WBC, afebrile and normal LFTs. Would DC antibx if blood cx came back negative. If she is c/o RUQ abd pain after constipation resolves may consider re-eval by IR at [facility] to see if collection drainage can be considered Supervising Physician Co-Signing Physician Notes I saw and evaluated the patient, we were consulted for evaluation of irregular appearance to the patient's liver on CT scan. 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 This resulted in the need for liver biopsy which was complicated by development of a pseudoaneurysm last summer. Ultimately she underwent a drainage procedure and has been followed by one of my partners as an outpatient. The patient notes that she presented due to abdominal discomfort which she thought was related to the patient. Of note her CT scan does appear to show a 4 cm subcapsular fluid collection, review of outpatient CT suggest that this is stable as compared to prior studies. As the patient's white blood cell count is within normal limits, her liver enzymes are within normal limits and she has been afebrile while in the hospital aspiration is probably not needed at the present time. The radiologist had mentioned the possibility of an ectopic , would recommend further evaluation by [facility] if this is felt considered a possibility. Recommendations MiraLAX twice daily Dulcolax as needed Outpatient follow-up with Dr. Ghotra as previously scheduled History of Present Illness Reason for Consultation: Abdominal pain Requesting Physician: Dr. Luis Cardenas Attending Physician: Dr. Pelon Oconnell History of Present Illness Pt is a 23 yo female w PMHx of elevated LFTs (EBV related vs DILI from Bactrim), who presented w c/o constipation for >8 weeks w associated symptoms of nausea, vomiting and diffuse abd pain. States she has tried OTC stool softeners, laxatives, enema wo able to move bowels or pass flatus in the last 8 days. Not eating much, lost 8 lbs. She reports having fever, but afebrile since here. Workup showed no signs of leukocytosis, nor elevated LFTs, lipase levels. TSH, UA normal. Urine test negative. CT abd/pelvis obtained showed 4.4 x 3.4 cm lesion within the subcapsular location at the inferior aspect of R liver lobe. She had hx of liver bx at [facility] last year for elevated LFTs evals with complication of R hepatic artery pseudoaneurysm and hematoma requiring emergent embolization wo coils. The subcapsular collection currently seen may represent old hematoma. However infectious workup had been initiated and she was started on IV antibx for concerns of possible liver abscess. Surgery consulted as well. No tentnative plans for IR drainage procedure made at this time. Family history. No family history on file Allergies Allergy/AdvReac Type Severity Reaction Status Date / Time No Known Allergies Allergy Unverified 10/31/23 19:53 Home Medications Medication Instructions Recorded Confirmed Type cyclobenzaprine 5 mg tablet 5 mg PO Q8 PRN Muscle Spasm 03/23/23 10/31/23 History metoprolol succinate 25 mg 12.5 mg PO QAM 10/31/23 10/31/23 History tablet,extended release 24 hr Patient History Medical History Liver hematoma Mononucleosis Pancytopenia Surgical History History of liver biopsy Social History Smoking Status: Current every day smoker Tobacco Type: E-cigarettes / Vaping Second Hand Exposure: Yes; Do You Dip or Chew Tobacco: No; Tobacco Cessation Education Requested by Patient: No Hx Alcohol Use: No Hx Substance Use: Yes Last Used Substance: Days (ago) Last Used Substance Other:: 3 days ago, 3 times a week. 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 Health Required: No Beliefs That Will Affect Care: None Current Living Situation: Parent Current Living Situation Comment: With parents Other Information That Helps Us Care for You: No Feels Safe at Home: Yes Safety Concerns: Feels Safe At This Time Assistive Devices: None Review of Systems Review of Systems: All systems reviewed & are unremarkable except as noted in HPI & below Physical Exam Constitutional: WD/WN, vitals as above well groomed, cooperative and comfortable Eyes: PERRL, conjunctivae normal, anicteric sclerae ENMT: external ear and nose normal, oropharynx normal Respiratory: normal respiratory effort, lungs clear to auscultation Cardiovascular: RRR, no murmur, no edema Gastrointestinal (Abdomen): normal bowel sounds, soft, nontender, no hep atosplenomegaly Skin: no rashes, warm and dry no jaundice Psychiatric: A+Ox3, euthymic affect Lymphatic: no lymphedema Results & Data Vital Signs (Past 12 Hours) Vital Signs Temp Pulse Resp BP Pulse Ox O2 Del Method 11/01/23 07:51 36.7 C 56 L 16 111/70 99 Room Air 11/01/23 00:36 36.7 C 84 18 124/80 97 Room Air 11/01/23 00:12 Room Air
--- NOTE | 2023-11-01 11:07 | XRay Report ---
KUB HISTORY: eval stool burden COMPARISON: None. FINDINGS: The bowel gas pattern is unremarkable. There are no dilated loops of small bowel to suggest an obstruction. No renal calculi. No ureteral calculi. No pneumoperitoneum or pneumatosis. Mild-to- moderate fecal retention. IMPRESSION: 1. Nonobstructive bowel gas pattern. 2. Mild to moderate fecal retention. ACT 112: Negative or not required by law. Electronically signed by: Mark Bowden M.D. 11/01/2023 11:06 AM
[2023-11-01] MEDS ORDERED: FAMOTIDINE 200 MG/20 ML VIAL IV STA (11:28)
[2023-11-01] MEDS: POLYETHYLENE (MIRALAX) 17 GM PACK PO SCH (11:35)
[2023-11-01] MEDS: diphenhydrAMINE 50 MG/ML VIAL IV STA (11:49)
[2023-11-01] MEDS: FAMOTIDINE 20 MG in SYRINGE 3 ML IV ONE (12:05)
[2023-11-01] MEDS: CETIRIZINE HCL 10 MG TABLET PO ONE (12:05)
[2023-11-01] MEDS: LACTULOSE SYRUP 20 GM/30 ML UDC PO ONE (12:05)
[2023-11-01] MEDS: methylPREDNISolone 40 MG in SYRINGE 0 ML IV ONE (12:06)
[2023-11-01] MEDS: AZTREONAM 2,000 MG in DEXTROSE 5% MINI-B 100 ML IV SCH (12:06)
[2023-11-01] MEDS: metroNIDAZOLE 500 MG/100 ML BAG IV SCH (13:05)
[2023-11-01] MEDS: ONDANSETRON INJ 2 MG/ML 2 ML VIAL IV PRN (13:05)
[2023-11-01] MEDS: SOD PHOSPHATE/SOD BIPHOSPHATE ENEMA 132 ML BTL PR PRN (13:35)
[2023-11-01 15:58] LABS: Influenza A virus by PCR Negative (Neg); Influenza B virus by PCR Negative (Neg); RSV by PCR Negative (Neg)
[2023-11-01 16:07] LABS: SARS CoV2 RNA(COVID-19) Ceph POSITIVE (Negative)
--- NOTE | 2023-11-01 19:06 | Hospitalist Progress Note ---
Date of Service November 01, 2023 Assessment & Plan (1) Liver lesion: Plan: per admitting service notes with addendum: 23-year-old female with past medical history significant for transaminitis, hyponatremia, liver hematoma, pancytopenia and splenomegaly presents with constipation for 1 week and also nausea and vomiting and abdominal pain in the upper abdomen radiating to the back. Also having fevers. Denies any chest pain or shortness of breath. No cough. No headache. No runny nose or sore throat. No neck pain. Normal bladder movements. Resting comfortably and hemodynamically stable. Patient was admitted to [facility] in February 2003 with fever elevated LFTs and pancytopenia. Found to have mononucleosis. Patient was transferred to [facility]. Her workup was positive for EBV virus. She was seen by hepatology for elevated LFTs and underwent liver biopsy which showed nonspecific inflammatory change but complicated with hepatic extravasation and hematoma. S/p emergent embolization by IR. She did fine and got discharged. Again got readmitted in few days for nausea vomiting and fevers. Received empiric antibiotics. Workup was negative. Repeat CT scan showed liver hematoma which was drained. She has ultrasound done on August 22, 2023 as outpatient which showed hepatic hematoma 4 X4.8 X4.9 cm dome down from previous 6.8 X 5.[address] scan showing 4.4x 3.4 cm within the subcapsular location of the inferior aspect the right hepatic lobe possible walled off abscess or subcapsular lesion. POSSIBLE LIVER ABSCESS Abdominal pain Nausea vomiting Fevers CT scan showing possible abscess versus liver lesion History of hepatic hematoma Placing on empiric IV zosyn N.p.o., IV fluids, IV Dilaudid as needed IV Protonix twice daily Surgery consulted and appreciate inputs Possible IR drainage in a.m. Will consult GI Close monitor 11/01 discussed with [facility] IR CT scan reviewed: possible liver abscess agree with transfer to [facility]- awaiting bed availability continue IV abx: Zosyn changed to Aztreonam + Flagyl in light of possible drug allergy to Zosyn given IV solumedrol, saline availability Benadryl Constipation fleet enema + lactulose ordered COVID 19 infection had cold like symptoms last week no respiratory symptoms currently CXR ordered History of tachycardia Metoprolol XL DVT prophylaxis SCDs Disposition Medical floor Full code plan of care discussed with patient and family at bedside in detail and at length all questions answered they are understanding, agreeable, comfortable with the plan of care Admission and Anticipated Discharge Date Admission Date: October 31, 2023 Subjective ff up for possible liver abscess, etc seen resting in bed, sitting up family at bedside states she still has RUQ pain, somewhat better than yesterday still has no BM, no nausea no fever/chills no chest pain, dyspnea, palpitations, dizziness no cough reports having rash on arms and legs, itching in the morning no other symptoms Review of Systems Review of Systems: all noted and negative except for above Physical Exam Physical Exam: General- oriented x 3, not in distress, speaks in sentences with no effort or accessory muscle use face- mild facial, periorbital edema Eyes- anicteric Neck- no JVD Lungs- clear breath sounds bilaterally, no rales/wheezes Heart- normal rate, regular rhythm; no murmurs Abdomen- normal bowel sounds, nondistended, soft, mild RUQ tenderness Extremities- no pretibial edema, no calf tenderness no rashes Neuro- alert, oriented x 3; no gross focal neurologic deficits Skin- warm & dry Results & Data Results & Data Vital Signs (Past 12 Hours) Vital Signs Temp Pulse Resp BP Pulse Ox O2 Del Method 11/01/23 15:09 36.8 C 73 16 138/87 93 Room Air 11/01/23 07:51 36.7 C 56 L 16 111/70 99 Room Air all noted and reviewed including below
[2023-11-01] MEDS: bisacodyL 5 MG TABEC PO SCH (20:29)
[2023-11-01] MEDS: diphenhydrAMINE 50 MG/ML VIAL IV PRN (23:00)
[2023-11-02] MEDS: MULTIVITAMIN TAB PO SCH (08:52)
[2023-11-02] MEDS: CETIRIZINE HCL 10 MG TABLET PO SCH (08:52)
[2023-11-02] MEDS: METOPROLOL SUCC 25MG EXT REL TAB PO SCH (08:52)
--- NOTE | 2023-11-02 11:24 | Infectious Disease Consult ---
<Statement entered by Elijah Springer II, DO - 11/02/23 15:12> I have seen and reviewed the chart and all documentation with Dr. Pederson and agree with his note and plan. Elijah Springer D.O. Date of Service November 02, 2023 Telehealth Information I performed this visit using a real-time telehealth connection between my location and the patients location ([facility]). After connecting through interactive tele-video, patient was identified by name and date of and/or wristband check.Patient (or authorized healthcare hobbies and crafts sales representative) was informed that this was a telemedicine visit and it was being conducted confidentially over secure lines. My office door was closed and no one else was present in the room with me.Patient (or authorized healthcare hobbies and crafts sales representative) provided consent to proceed with the visit, expressed an understanding of privacy and security of the telemedicine visit, and gave permission to have a hospital hobbies and crafts sales representative in the room in order to assist with the visit and to conduct portions of the visit, as needed. I informed the p atient (or authorized healthcare hobbies and crafts sales representative) that I reviewed their record and presented the opportunity for them to ask any questions regarding the visit today. The patient agreed to participate. Assessment & Plan (1) Liver lesion: (2) COVID: Plan Patient with recent admission for hepatitis related to mononucleosis. During that admission she had a liver biopsy which was complicated by Extravasation and subcapsular collection. she is now presenting with a week of fevers, nausea, vomiting, upper abdominal pain that radiates to the back. She was found to be COVID positive. Abdominal imaging is significant for persistent collection slightly reduced in size from last imaging in July. She has no fevers or leukocytosis during her stay. She was receiving Zosyn initially but developed a rash. This happened with Zosyn previously during her mononucleosis admission. She is currently receiving aztreonam and Flagyl. She is being transferred to [facility] for IR aspiration of the collection. It is unclear if this is truly an infection or just persistence of her collection. Her symptoms prior to presentation are consistent with COVID -Stop all abx, she appears well and it could sterilize the collection if it is truly an infection -Recommend IR aspiration of collection History of Present Illness History of Present Illness 23 yo w/ PMHx of admission in February 2023 w/ fever, transaminitis, pancytopenia found to have EBV. Underwent liver biopsy at that time which was complicated by extravasation and subcapsular hematoma. She underwent embolization with IR. In march she had a re-admission with nausea, vomiting, and stomach pain. She was found to have persistent subcapsular hematoma.This was aspirated by IR and had no growth. She was observed off antibiotics and did well. Now, patient is presenting with 1 week of fever, nausea, vomiting, and upper abdominal pain that radiates to the back. No chest pain, SOB, cough, headache. CT in the ED showed a 4.4 x 3.4 cm collection in the subcapsular location of the inferior aspect of the right hepatic lobe (collection noted to be 4 x 4.8 x 4.9 cm by ultrasound on August 22). COVID testing was positive. She was started on zosyn and developed a rash (this has occurred previously as well) and was transitioned to aztreonam and flagyl. General surgery was consulted and did not recommend intervention. Recommended sampling by IR. Patient is planning to be transferred [place] [facility] She has been afebrile throughout her stay with no leukocytosis. Allergies Allergy/AdvReac Type Severity Reaction Status Date / Time Sulfa (Sulfonamide Allergy Rash Verified 11/02/23 02:54 Antibiotics) Home Medications Medication Instructions Recorded Confirmed Type cyclobenzaprine 5 mg tablet 5 mg PO Q8 PRN Muscle Spasm 03/23/23 10/31/23 History metoprolol succinate 25 mg 12.5 mg PO QAM 10/31/23 10/31/23 History tablet,extended release 24 hr Patient History Medical History Liver hematoma Mononucleosis Pancytopenia Surgical History History of liver biopsy Social History Smoking Status: Current every day smoker Tobacco Type: E-cigarettes / Vaping Second Hand Exposure: Yes; Do You Dip or Chew Tobacco: No; Tobacco Cessation Education Requested by Patient: No Hx Alcohol Use: No Hx Substance Use: Yes Last Used Substance: Days (ago) Last Used Substance Oth er:: 3 days ago, 3 times a week. Preferred Language: Arabic Communication Ability: Effective Restaurant Line Server Required: No Beliefs That Will Affect Care: None Current Living Situation: Parent Current Living Situation Comment: With parents Other Information That Helps Us Care for You: No Feels Safe at Home: Yes Safety Concerns: Feels Safe At This Time Assistive Devices: None Review of Systems Full ROS was performed and is negative unless mentioned in the HPI. Physical Exam Exam limited by telemed Alert and oriented Generally well appearing Results & Data Vital Signs (Past 12 Hours) Vital Signs Temp Pulse Resp BP Pulse Ox O2 Del Method 11/02/23 07:37 36.8 C 66 18 112/69 96 Room Air Laboratory Results Laboratory Results - last 72 hr 10/31/23 10/31/23 10/31/23 17:19 18:00 19:01 WBC 5.97 RBC 4.95 Hgb 14.3 Hct 40.9 MCV 82.6 MCH 28.9 MCHC 35.0 RDW Std Deviation 39.2 RDW Coeff of Sami 13.1 Plt Count 268 MPV 9.7 Immature Gran % (Auto) 0.2 Neut % (Auto) 67.3 Lymph % (Auto) 24.6 [place] % (Auto) 6.9 Eos % (Auto) 0.7 Baso % (Auto) 0.3 Neut # (Auto) 4.02 Lymph # (Auto) 1.47 [place] # (Auto) 0.41 Eos # (Auto) 0.04 Baso # (Auto) 0.02 Immature Gran # (Auto) 0.01 PT INR Sodium 138 Potassium 3.9 Chloride 103 Carbon Dioxide 26 Anion Gap 9 BUN 9 Creatinine 0.72 Est Cr Clr Drug Dosing 136.2 Est GFR ( Amer) 137.8 Est GFR (Non-Af Amer) 118.9 BUN/Creatinine Ratio 12.5 Glucose 84 Lactate Calcium 9.7 Magnesium Total Bilirubin 0.6 Direct Bilirubin AST 17 ALT 13 Alkaline Phosphatase 99 Total Protein 8.3 Albumin 4.7 Globulin 3.6 Albumin/Globulin Ratio 1.3 Lipase 17 TSH 1.887 Urine Color Yellow Urine Appearance Clear Urine pH 7.5 Ur Specific [place] 1.011 Urine Protein Negative Urine Glucose (UA) Negative Urine Ketones Negative Urine Blood Negative Urine Nitrite Negative Urine Bilirubin Negative Urine Urobilinogen Negative Ur Leukocyte Esterase Negative Urine Test Negative SARS-CoV-2 (PCR) Influenza Type A (PCR) Influenza Type B (PCR) RSV (RT-PCR) 10/31/23 11/01/23 11/01/23 19:44 05:17 08:40 WBC 3.81 L RBC 4.22 Hgb 12.0 Hct 35.9 L MCV 85.1 MCH 28.4 MCHC 33.4 RDW Std Deviation 40.0 RDW Coeff of Sami 13.0 Plt Count 170 MPV 9.8 Immature Gran % (Auto) 0.3 Neut % (Auto) 49.3 Lymph % (Auto) 37.3 [place] % (Auto) 11.0 Eos % (Auto) 1.8 Baso % (Auto) 0.3 Neut # (Auto) 1.88 Lymph # (Auto) 1.42 [place] # (Auto) 0.42 Eos # (Auto) 0.07 Baso # (Auto) 0.01 Immature Gran # (Auto) 0.01 PT 11.6 INR 1.1 Sodium 140 Potassium 4.4 Chloride 111 H Carbon Dioxide 27 Anion Gap 2 L BUN 8 Creatinine 0.75 Est Cr Clr Drug Dosing 126.2 Est GFR ( Amer) 131.1 Est GFR (Non-Af Amer) 113.1 BUN/Creatinine Ratio 10.7 Glucose 105 H Lactate 1.0 Calcium 8.4 L Magnesium 1.7 Total Bilirubin 0.4 Direct Bilirubin 0.1 AST 12 L ALT 10 Alkaline Phosphatase 61 Total Protein 5.8 L D Albumin 3.5 Globulin Albumin/Globulin Ratio Lipase TSH Urine Color Urine Appearance Urine pH Ur Specific [place] Urine Protein Urine Glucose (UA) Urine Ketones Urine Blood Urine Nitrite Urine Bilirubin Urine Urobilinogen Ur Leukocyte Esterase Urine Test SARS-CoV-2 (PCR) Influenza Type A (PCR) Influenza Type B (PCR) RSV (RT-PCR) 11/01/23 15:10 WBC RBC Hgb Hct MCV MCH MCHC RDW Std Deviation RDW Coeff of Sami Plt Count MPV Immature Gran % (Auto) Neut % (Auto) Lymph % (Auto) [place] % (Auto) Eos % (Auto) Baso % (Auto) Neut # (Auto) Lymph # (Auto) [place] # (Auto) Eos # (Auto) Baso # (Auto) Immature Gran # (Auto) PT INR Sodium Potassium Chloride Carbon Dioxide Anion Gap BUN Creatinine Est Cr Clr Drug Dosing Est GFR ( Amer) Est GFR (Non-Af Amer) BUN/Creatinine Ratio Glucose Lactate Calcium Magnesium Total Bilirubin Direct Bilirubin AST ALT Alkaline Phosphatase Total Protein Albumin Globulin Albumin/Globulin Ratio Lipase TSH Urine Color Urine Appearance Urine pH Ur Specific [place] Urine Protein Urine Glucose (UA) Urine Ketones Urine Blood Urine Nitrite Urine Bilirubin Urine Urobilinogen Ur Leukocyte Esterase Urine Test SARS-CoV-2 (PCR) POSITIVE A* Influenza Type A (PCR) Negative Influenza Type B (PCR) Negative RSV (RT-PCR) Negative Microbiology 10/31/23 20:34 Blood Aerobic Blood Culture - Preliminary No growth in Aerobic bottle after 24 hours. 10/31/23 20:34 Blood Anaerobic Blood Culture - Preliminary No growth in Anaerobic bottle after 24 hours. 10/31/23 19:44 Blood Aerobic Blood Culture - Preliminary No growth in Aerobic bottle after 24 hours. 10/31/23 19:44 Blood Anaerobic Blood Culture - Preliminary No growth in Anaerobic bottle after 24 hours. Diagnostic Findings Abdomen/Pelvis CT 10/31/23 16:[address] WITHOUT CONTRAST CT DOSE: 1176.21 mGy.cm HISTORY: Generalized abdominal pain; no BM in 7 days TECHNIQUE: Multiaxial CT images of the abdomen and pelvis were performed without contrast. A dose lowering technique was utilized adhering to the principles of ALARA. COMPARISON STUDY: Abdomen and pelvis CT 03/23/2023. FINDINGS: The lung bases are clear. No pneumoperitoneum. No pneumatosis. No acute fractures identified. The unenhanced gallbladder, pancreas, adrenal glands, and kidneys are unremarkable. No hydronephrosis. No retroperitoneal lymphadenopathy. Normal caliber abdominal aorta. No pelvic lymphadenopathy. Trace pelvic free fluid. This is likely physiologic. The uterus, ovaries, and bladder are unremarkable. Suboptimal evaluation for bowel pathology due to the lack of intravenous and oral contrast. However, there is no definite bowel wall thickening or obstruction. Normal appendix. Splenomegaly has improved. The spleen measures 13 cm in length. There has been interval development of a thick- walled hypodense lesion either within or adjacent to the inferior aspect of the right hepatic lobe (segment 6). This measures approximately 4.4 x 3.4 cm. This is likely subcapsular rather than intraparenchymal . This appears contain a septation and thin rind of hypodensity within the liver. Therefore, this could represent a walled off abscess or subcapsular implant. IMPRESSION: 1. Interval development of a thick-walled hypodense 4.4 x 3.4 cm lesion likely within a subcapsular location at the inferior aspect of the right hepatic lobe. Therefore, this could represent a walled off abscess or subcapsular lesion/implant. Endometriosis or an ectopic is considered less likely but also remains in the differential diagnosis. 2. No bowel wall thickening or obstruction. 3. Normal appendix. 4. Mild splenomegaly. This has improved. ACT 112: Negative or not required by law. Electronically signed by: Mark Bowden M.D. 10/31/2023 6:12 PM KUB X-Ray 11/01/23 09:31 KUB HISTORY: eval stool burden COMPARISON: None. FINDINGS: The bowel gas pattern is unremarkable. There are no dilated loops of small bowel to suggest an obstruction. No renal calculi. No ureteral calculi. No pneumoperitoneum or pneumatosis. [id number] fecal retention. IMPRESSION: 1. Nonobstructive bowel gas pattern. 2. Mild to moderate fecal retention. ACT 112: Negative or not required by law. Electronically signed by: Mark Bowden M.D. 11/01/2023 11:06 AM KUB X-Ray 11/02/23 10:19 KUB CLINICAL HISTORY: Constipation. COMPARISON STUDY: CT of the abdomen and pelvis October 31, 2023 and KUB November 01, 2023. FINDINGS: The bowel gas pattern is normal. Small amount of stool within the colon and rectum is present. No evidence for free air on this supine exam. IMPRESSION: 1. No evidence for a bowel obstruction. 2. Small amount of stool. ACT 112: Negative or not required by law. Electronically signed by: Serafin Irvin M.D. 11/02/2023 11:34 AM Medications Administered Home Medications Medication Instructions Recorded Confirmed Last Taken cyclobenzaprine 5 mg tablet 5 mg PO Q8 PRN Muscle Spasm 03/23/23 10/31/23 Unknown metoprolol succinate 25 mg 12.5 mg PO QAM 10/31/23 10/31/23 Unknown tablet,extended release 24 hr Active Medications Generic Name Dose Route Start Last Admin Trade Name Freq PRN Reason Stop Dose Admin Bisacodyl 10 mg 11/01/23 21:00 11/01/23 20:29 Bisacodyl 5 Mg Tabec PO 12/01/23 20:59 10 mg HS DIANE Administration Cetirizine HCl 10 mg 11/02/23 09:00 11/02/23 08:52 Cetirizine Hcl 10 Mg Tablet PO 12/02/23 08:59 10 mg QAM DIANE Administration Diphenhydramine HCl 12.5 mg 11/01/23 11:29 11/02/23 11:20 Diphenhydramine 50 Mg/Ml Vial IV 12/01/23 11:28 12.5 mg Q6H PRN Administration itching, rash Hydromorphone HCl 0.5 mg 11/01/23 00:36 11/02/23 08:56 Hydromorphone Inj 0.5 Mg/0.5 Ml Syr IV 11/15/23 00:35 0.5 mg Q4H PRN Administration Pain Pantoprazole Sodium 40 mg/ 10 mls @ 5 mls/min 11/01/23 09:00 11/02/23 09:02 Syringe IV 12/01/23 08:59 5 mls/min BID DIANE Administration Aztreonam 2,000 mg/ Dextrose 100 mls @ 100 mls/hr 11/01/23 12:00 11/02/23 05:12 IV 11/11/23 11:59 Infused Q8H DIANE Infusion Metronidazole 500 mg in 100 mls @ 100 mls/hr 11/01/23 12:00 11/02/23 04:06 Flagyl IV 11/11/23 11:59 Infused Q8H DIANE Infusion Protocol Metoprolol Succinate 12.5 mg 11/02/23 09:00 11/02/23 08:52 Metoprolol Succ 25mg Ext Rel Tab PO 12/02/23 08:59 12.5 mg QAM DIANE Administration Multivitamins 1 tab 11/02/23 09:00 11/02/23 08:52 Multivitamin Tab PO 12/02/23 08:59 1 tab QAM DIANE Administration Ondansetron HCl 4 mg 11/01/23 00:36 11/01/23 20:35 Ondansetron Inj 2 Mg/Ml 2 Ml Vial IV 12/01/23 00:35 4 mg Q6H PRN Administration Nausea Polyethylene Glycol 17 gm 11/01/23 09:45 11/02/23 08:53 Polyethylene (Miralax) 17 Gm Pack PO 12/01/23 09:44 17 gm BID DIANE Administration Sodium Biphosphate/Sodium Phosphate 132 ml 11/01/23 12:07 11/01/23 13:35 Sod Phosphate/Sod Biphosphate Enema 132 Ml Btl NM 12/01/23 12:06 132 ml DAILY PRN Administration Constipation
--- NOTE | 2023-11-02 11:36 | XRay Report ---
KUB CLINICAL HISTORY: Constipation. COMPARISON STUDY: CT of the abdomen and pelvis October 31, 2023 and KUB November 01, 2023. FINDINGS: The bowel gas pattern is normal. Small amount of stool within the colon and rectum is prese nt. No evidence for free air on this supine exam. IMPRESSION: 1. No evidence for a bowel obstruction. 2. Small amount of stool. ACT 112: Negative or not required by law. Electronically signed by: Serafin Irvin M.D. 11/02/2023 11:34 AM
--- NOTE | 2023-11-02 14:36 | XRay Report ---
SINGLE VIEW CHEST CLINICAL HISTORY: Covid. FINDINGS: An AP, portable, upright chest radiograph is compared to study dated 03/23/2023. The cardiom ediastinal silhouette is unremarkable. The lungs and pleural spaces are clear. No pneumothorax is see n. The bony thorax is grossly intact. IMPRESSION: No active disease in the chest. ACT 112: Negative or not required by law. Electronically signed by: Bobby Hahn M.D. 11/02/2023 2:35 PM
--- NOTE | 2023-11-02 16:44 | Hospitalist Progress Note ---
Date of Service November 02, 2023 Assessment & Plan (1) Liver lesion: Plan: per admitting service notes with addendum: 23-year-old female with past medical history significant for transaminitis, hyponatremia, liver hematoma, pancytopenia and splenomegaly presents with constipation for 1 week and also nausea and vomiting and abdominal pain in the upper abdomen radiating to the back. Also having fevers. Denies any chest pain or shortness of breath. No cough. No headache. No runny nose or sore throat. No neck pain. Normal bladder movements. Resting comfortably and hemodynamically stable. Patient was admitted to [facility] in February 2003 with fever elevated LFTs and pancytopenia. Found to have mononucleosis. Patient was transferred to [place]. Her workup was positive for EBV virus. She was seen by hepatology for elevated LFTs and underwent liver biopsy which showed nonspecific inflammatory change but complicated with hepatic extravasation and hematoma. S/p emergent embolization by IR. She did fine and got discharged. Again got readmitted in few days for nausea vomiting and fevers. Received empiric antibiotics. Workup was negative. Repeat CT scan showed liver hematoma which was drained. She has ultrasound done on August 22, 2023 as outpatient which showed hepatic hematoma 4 X4.8 X4.9 cm dome down from previous 6.8 X 5.9 [address] Today [address] scan showing 4.4x 3.4 cm within the subcapsular location of the inferior aspect the right hepatic lobe possible walled off abscess or subcapsular lesion. POSSIBLE LIVER ABSCESS Abdominal pain Nausea vomiting Fevers CT scan showing possible abscess versus liver lesion History of hepatic hematoma Placing on empiric IV zosyn N.p.o., IV fluids, IV Dilaudid as needed IV Protonix twice daily Surgery consulted and appreciate inputs Possible IR drainage in a.m. Will consult GI Close monitor 11/01 discussed with [facility] IR CT scan reviewed: possible liver abscess agree with transfer to [facility]- awaiting bed availability continue IV abx: Zosyn changed to Aztreonam + Flagyl in light of possible drug allergy to Zosyn given IV solumedrol, saline availability Benadryl 11/02 Remains afebrile Abdominal pain seems to be improved compared to yesterday Evaluated by [facility] infectious disease specialist-Dr. Springer Recommending to hold antibiotics at this point as patient is afebrile, with no leukocytosis Await liver fluid aspiration culture and sensitivity Constipation fleet enema + lactulose ordered, positive BMs KUB: Small stool noted, without obstruction COVID 19 infection had cold like symptoms last week no respiratory symptoms currently CXR ordered: No pneumonia Respiratory status stable History of tachycardia Metoprolol XL DVT prophylaxis SCDs Disposition Transfer to [facility] Full code plan of care discussed with patient at bedside in detail and at length all questions answered She is understanding, agreeable, comfortable with the plan of care Admission and Anticipated Discharge Date Admission Date: October 31, 2023 Subjective Follow-up for abdominal pain, liver lesion, etc Seen with BEV Curtis at the bedside throughout whole exam Seen resting in bed, comfortable, not in distress States upper abdominal pain seems to be improving today Had a bowel movement as well this morning Tolerating diet well No fevers or chills no chest pain, dyspnea, palpitations, dizziness No other new symptom Review of Systems Review of Systems: all noted and negative except for above Physical Exam Physical Exam: General- oriented x 3, not in distress, speaks in sentences with no effort or accessory muscle use Eyes- anicteric Neck- no JVD Lungs- clear breath sounds bilaterally, no rales/wheezes Heart- normal rate, regular rhythm; no murmurs Abdomen- normal bowel sounds, nondistended, soft, mild right upper quadrant tenderness Extremities- no pretibial edema, no calf tenderness Neuro- alert, oriented x 3; no gross focal neurologic deficits Skin- warm & dry Results & Data Results & Data Vital Signs (Past 12 Hours) Vital Signs Temp Pulse Resp BP Pulse Ox O2 Del Method 11/02/23 07:37 36.8 C 66 18 112/69 96 Room Air all noted and reviewed including below
--- NOTE | 2023-11-02 16:51 | Discharge Summary ---
Discharge Summary Date of Service November 02, 2023 Notes For Next Care Provider Medication Changes From Visit Please see assessment and plan below Admission HPI Per Admitting Provider 23-year-old female with past medical history significant for transaminitis, hyponatremia, liver hematoma, pancytopenia and splenomegaly presents with constipation for 1 week and also nausea and vomiting and abdominal pain in the upper abdomen radiating to the back. Also having fevers. Denies any chest pain or shortness of breath. No cough. No headache. No runny nose or sore throat. No neck pain. Normal bladder movements. Resting comfortably and hemodynamically stable. Patient was admitted to [facility] in February 2003 with fever elevated LFTs and pancytopenia. Found to have mononucleosis. Patient was transferred to [place]. Her workup was positive for EBV virus. She was seen by hepatology for elevated LFTs and underwent liver biopsy which showed nonspecific inflammatory change but complicated with hepatic extravasation and hematoma. S/p emergent embolization by IR. She did fine and got discharged. Again got readmitted in few days for nausea vomiting and fevers. Received e mpiric antibiotics. Workup was negative. Repeat CT scan showed liver hematoma which was drained. She has ultrasound done on August 22, 2023 as outpatient which showed hepatic hematoma 4 X4.8 X4.9 cm dome down from previous 6.8 X 5.[address] scan showing 4.4x 3.4 cm within the subcapsular location of the inferior aspect the right hepatic lobe possible walled off abscess or subcapsul ar lesion. Past medical history. As mentioned above Past surgical history. Colonoscopy. And EGD with endoscopic ultrasound. IR arterial embolization. IR aspiration Social history. No smoking. Uses smokeless tobacco. Alcohol occasional. Occasional marijuana. Family history. No family history on file Admission Exam Per Admitting Provider General- Not in distress Head- atraumatic Eyes- PERRL. ENT- oropharynx clear Neck- supple, no JVD Lungs- clear to auscultation no wheezing or crackles Heart- regular rhythm; no murmur, no gallop. Abdomen- normal bowel sounds, soft, diffuse tender no rigidity no distension. Extremities- no pretibial edema, no erythema seen. Neuro- alert, oriented x 3; PERRL no facial palsy; no dysarthria; moves extremities Skin- warm & dry Principal Dx & Hospital Course #1 = Principal Diagnosis (1) Liver lesion: per admitting service notes with addendum: 23-year-old female with past medical history significant for transaminitis, hyponatremia, liver hematoma, pancytopenia and splenomegaly presents with constipation for 1 week and also nausea and vomiting and abdominal pain in the upper abdomen radiating to the back. Also having fevers. Denies any chest pain or shortness of breath. No cough. No headache. No runny nose or sore throat. No neck pain. Normal bladder movements. Resting comfortably and hemodynamically stable. Patient was admitted to [facility] in February 2003 with fever elevated LFTs and pancytopenia. Found to have mononucleosis. Patient was transferred to [place]. Her workup was positive for EBV virus. She was seen by hepatology for elevated LFTs and underwent liver biopsy which showed nonspecific inflammatory change but complicated with hepatic extravasation and hematoma. S/p emergent embolization by IR. She did fine and got discharged. Again got readmitted in few days for nausea vomiting and fevers. Received empiric antibiotics. Workup was negative. Repeat CT scan showed liver hematoma which was drained. She has ultrasound done on August 22, 2023 as outpatient which showed hepatic hematoma 4 X4.8 X4.9 cm dome down from previous 6.8 X 5.[address] scan showing 4.4x 3.4 cm within the subcapsular location of the inferior aspect the right hepatic lobe possible walled off abscess or subcapsular lesion. POSSIBLE LIVER ABSCESS Abdominal pain Nausea vomiting Fevers CT scan showing possible abscess versus liver lesion History of hepatic hematoma Placing on empiric IV zosyn N.p.o., IV fluids, IV Dilaudid as needed IV Protonix twice daily Surgery consulted and appreciate inputs Possible IR drainage in a.m. Will consult GI Close monitor 11/01 discussed with [facility] IR CT scan reviewed: possible liver abscess agree with transfer to [facility]- awaiting bed availability continue IV abx: Zosyn changed to Aztreonam + Flagyl in light of possible drug allergy to Zosyn given IV solumedrol, Famotidine, Benadryl, and PO Cetirizine: facial/periorbital edema, arm rashes/pruritus resolved patient has allergy to Penicillin, Sulfa based drugs 11/02 Remains afebrile Abdominal pain seems to be improved compared to yesterday Evaluated by [facility] infectious disease specialist-Dr. Springer Recommending to hold antibiotics at this point as patient is afebrile, with no leukocytosis Await liver fluid aspiration culture and sensitivity Constipation fleet enema + lactulose ordered, positive BMs KUB: Small stool noted, without obstruction COVID 19 infection had cold like symptoms last week no respiratory symptoms currently CXR ordered: No pneumonia Respiratory status stable History of tachycardia Metoprolol XL DVT prophylaxis SCDs Disposition Transfer to [facility] Full code plan of care discussed with patient at bedside in detail and at length all questions answered She is understanding, agreeable, comfortable with the plan of care Discharge Exam General- oriented x 3, not in distress, speaks in sentences with no effort or accessory muscle use Eyes- anicteric Neck- no JVD Lungs- clear breath sounds bilaterally, no rales/wheezes Heart- normal rate, regular rhythm; no murmurs Abdomen- normal bowel sounds, nondistended, soft, mild right upper quadrant tenderness Extremities- no pretibial edema, no calf tenderness Neuro- alert, oriented x 3; no gross focal neurologic deficits Skin- warm & dry Updated Medication List Medication Instructions Recorded Confirmed Type cyclobenzaprine 5 mg tablet 5 mg PO Q8 PRN Muscle Spasm 03/23/23 10/31/23 Histor y metoprolol succinate 25 mg 12.5 mg PO QAM 10/31/23 10/31/23 History tablet,extended release 24 hr bisacodyl 5 mg tablet,delayed 10 mg (2 x 5 mg) PO HS #7 tabs 11/02/23 Rx release (Gentle Laxative (bisacodyl)) cetirizine 10 mg tablet 10 mg PO QAM 7 days #7 tabs 11/02/23 Rx diphenhydramine HCl 50 mg/mL 12.5 mg (0.25 mL) IV Q6H PRN 11/02/23 Rx injection solution allergic reaction 7 days #5 mL multivitamin with folic acid 400 1 tab PO QAM 30 days #30 tabs 11/02/23 Rx mcg tablet (Daily-Otis (with folic acid)) polyethylene glycol 3350 17 gram 17 g PO BID 7 days #14 ea 11/02/23 Rx oral powder packet (Miralax) sodium phosphates 19 gram-7 132 ml MN DAILY PRN constipation 7 11/02/23 Rx gram/118 mL enema (Enema days #133 mL Disposable) Hospital Stay Data Consultations 10/31/23 19:45 ED Decision to Admit Stat 10/31/23 22:04 Consult General Surgery Stat 11/01/23 08:00 Consult Gastroenterology Routine 11/01/23 19:07 Consult Infectious Diseases Routine 11/02/23 16:47 Burn CD for patient Routine Diagnostic Imagining Performed Laboratory Results WBC 3.81 K/ul (4.8-10.8) L 11/01/23 05:17 RBC 4.22 M/uL (4.20-5.40) 11/01/23 05:17 Hgb 12.0 g/dl (12.0-16.0) 11/01/23 05:17 Hct 35.9 % (37.0-47.0) L 11/01/23 05:17 MCV 85.1 fL (80.0-100.0) 11/01/23 05:17 MCH 28.4 pg (25.0-34.0) 11/01/23 05:17 MCHC 33.4 g/dL (32.0-36.0) 11/01/23 05:17 RDW Std Deviation 40.0 fL (36.4-46.3) 11/01/23 05:17 RDW Coeff of Sami 13.0 % (11.5-14.5) 11/01/23 05:17 Plt Count 170 K/uL (130-400) 11/01/23 05:17 MPV 9.8 fL (9.4-12.4) 11/01/23 05:17 Immature Gran % (Auto) 0.3 % 11/01/23 05:17 Neut % (Auto) 49.3 % 11/01/23 05:17 Lymph % (Auto) 37.3 % 11/01/23 05:17 Bland % (Auto) 11.0 % 11/01/23 05:17 Eos % (Auto) 1.8 % 11/01/23 05:17 Baso % (Auto) 0.3 % 11/01/23 05:17 Neut # (Auto) 1.88 K/uL (1.40-6.50) 11/01/23 05:17 Lymph # (Auto) 1.42 K/uL (1.20-3.40) 11/01/23 05:17 Bland # (Auto) 0.42 K/uL (0.11-0.59) 11/01/23 05:17 Eos # (Auto) 0.07 K/uL (0.00-0.50) 11/01/23 05:17 Baso # (Auto) 0.01 K/uL (0.00-0.20) 11/01/23 05:17 Immature Gran # (Auto) 0.01 K/uL (0.01-0.20) 11/01/23 05:17 PT 11.6 Seconds (9.0-12.0) 11/01/23 08:40 INR 1.1 (0.9-1.1) 11/01/23 08:40 Sodium 140 mmol/L (136-145) 11/01/23 05:17 Potassium 4.4 mmol/L (3.5-5.1) 11/01/23 05:17 Chloride 111 mmol/L (98-107) H 11/01/23 05:17 Carbon Dioxide 27 mmol/L (21-32) 11/01/23 05:17 Anion Gap 2 (3-11) L 11/01/23 05:17 BUN 8 mg/dl (6-23) 11/01/23 05:17 Creatinine 0.75 mg/dl (0.6-1.2) 11/01/23 05:17 Est Cr Clr Drug Dosing 126.2 ml/min 11/01/23 05:17 Est GFR ( Amer) 131.1 ml/min 11/01/23 05:17 Est GFR (Non-Af Amer) 113.1 ml/min 11/01/23 05:17 BUN/Creatinine Ratio 10.7 (10-20) 11/01/23 05:17 Glucose 105 mg/dl (70-99(Fasting)) H 11/01/23 05:17 Lactate 1.0 mmol/L (0.4-2.0) 10/31/23 19:44 Calcium 8.4 mg/dl (8.6-10.3) L 11/01/23 05:17 Magnesium 1.7 mg/dl (1.7-2.4) 11/01/23 05:17 Total Bilirubin 0.4 mg/dl (0.2-1.0) 11/01/23 05:17 Direct Bilirubin 0.1 mg/dl (0-0.2) 11/01/23 05:17 AST 12 U/L (13-39) L 11/01/23 05:17 ALT 10 U/L (7-52) 11/01/23 05:17 Alkaline Phosphatase 61 U/L (34-104) 11/01/23 05:17 Total Protein 5.8 gm/dl (6.0-8.3) L D 11/01/23 05:17 Albumin 3.5 gm/dl (3.4-5.0) 11/01/23 05:17 Globulin 3.6 gm/dl (2.5-4.0) 10/31/23 17:19 Albumin/Globulin Ratio 1.3 (0.9-2) 10/31/23 17:19 Lipase 17 U/L (11-82) 10/31/23 17:19 TSH 1.887 uIu/ml (0.300-4.500) 10/31/23 17:19 Urine Color Yellow 10/31/23 18:00 Urine Appearance Clear (Clear) 10/31/23 18:00 Urine pH 7.5 (4.5-7.5) 10/31/23 18:00 Ur Specific [place] 1.011 (1.000-1.030) 10/31/23 18:00 Urine Protein Negative (Negative) 10/31/23 18:00 Urine Glucose (UA) Negative (Negative) 10/31/23 18:00 Urine Ketones Negative (Negative) 10/31/23 18:00 Urine Blood Negative (Negative) 10/31/23 18:00 Urine Nitrite Negative (Negative) 10/31/23 18:00 Urine Bilirubin Negative (Negative) 10/31/23 18:00 Urine Urobilinogen Negative (Negative) 10/31/23 18:00 Ur Leukocyte Esterase Negative (Negative) 10/31/23 18:00 Urine Test Negative (Negative) 10/31/23 19:01 SARS-CoV-2 (PCR) POSITIVE (Negative) A* 11/01/23 15:10 Influenza Type A (PCR) Negative (Neg) 11/01/23 15:10 Influenza Type B (PCR) Negative (Neg) 11/01/23 15:10 RSV (RT-PCR) Negative (Neg) 11/01/23 15:10 Impressions Abdomen/Pelvis CT 10/31/23 16:[address] WITHOUT CONTRAST CT DOSE: 1176.21 mGy.cm HISTORY: Generalized abdominal pain; no BM in 7 days TECHNIQUE: Multiaxial CT images of the abdomen and pelvis were performed without contrast. A dose lowering technique was utilized adhering to the principles of ALARA. COMPARISON STUDY: Abdomen and pelvis CT 03/23/2023. FINDINGS: The lung bases are clear. No pneumoperitoneum. No pneumatosis. No acute fractures identified. The unenhanced gallbladder, pancreas, adrenal glands, and kidneys are unremarkable. No hydronephrosis. No retroperitoneal lymphadenopathy. Normal caliber abdominal aorta. No pelvic lymphadenopathy. Trace pelvic free fluid. This is likely physiologic. The uterus, ovaries, and bladder are unremarkable. Suboptimal evaluation for bowel pathology due to the lack of intravenous and oral contrast. However, there is no definite bowel wall thickening or obstruction. Normal appendix. Splenomegaly has improved. The spleen measures 13 cm in length. There has been interval development of a thick- walled hypodense lesion either within or adjacent to the inferior aspect of the right hepatic lobe (segment 6). This measures approximately 4.4 x 3.4 cm. This is likely subcapsular rather than intraparenchymal . This appears contain a septation and thin rind of hypodensity within the liver. Therefore, this could represent a walled off abscess or subcapsular implant. IMPRESSION: 1. Interval development of a thick-walled hypodense 4.4 x 3.4 cm lesion likely within a subcapsular location at the inferior aspect of the right hepatic lobe. Therefore, this could represent a walled off abscess or subcapsular lesion/implant. Endometriosis or an ectopic is considered less likely but also remains in the differential diagnosis. 2. No bowel wall thickening or obstruction. 3. Normal appendix. 4. Mild splenomegaly. This has improved. ACT 112: Negative or not required by law. Electronically signed by: Mark Bowden M.D. 10/31/2023 6:12 PM KUB X-Ray 11/02/23 10:19 KUB CLINICAL HISTORY: Constipation. COMPARISON STUDY: CT of the abdomen and pelvis October 31, 2023 and KUB November 01, 2023. FINDINGS: The bowel gas pattern is normal. Small amount of stool within the colon and rectum is present. No evidence for free air on this supine exam. IMPRESSION: 1. No evidence for a bowel obstruction. 2. Small amount of stool. ACT 112: Negative or not required by law. Electronically signed by: Serafin Irvin M.D. 11/02/2023 11:34 AM Chest X-Ray 11/02/23 14:22 SINGLE VIEW CHEST CLINICAL HISTORY: Covid. FINDINGS: An AP, portable, upright chest radiograph is compared to study dated 03/23/2023. The cardiomediastinal silhouette is unremarkable. The lungs and pleural spaces are clear. No pneumothorax is seen. The bony thorax is grossly intact. IMPRESSION: No active disease in the chest. ACT 112: Negative or not required by law. Electronically signed by: Bobby Hahn M.D. 11/02/2023 2:35 PM 10/31/23 16:39 CT Abd and Pelvis [CT abd pelvis wo con] Stat Pending Results Patient Have Any Pending Studies at Discharge: Yes Discharge Instructions Given to Patient (Per Discharging Provider) Please refer to accompanying hospital discharge summary for further details. Total Time Total Time Spent Total Time Spent (In Minutes): >30 minutes
== END 2023-11-02 23:00 | disposition short-term general hospital (02) | DRG 441 ==
LOC: ED 16:24 → 3N 23:04